=== PATIENT | male | born 1935 | race Caucasian/White ===

== ENCOUNTER → 2016-09-02 | Outpatient (CLI) | payer MEDICARE, MEDICAID ==
[~2016-09-02] MED LIST: Acetaminophen PEG; BISA10SU65 RECTALLY; ENOX80DI SQ; LISI1TAB PEG; Lansoprazole PEG; SIMV40TA73 PEG; SUCR1ORA PEG; TROL85CR TOP; Warfarin Sodium MC
[2016-09-02 07:22] LABS: PROTHROMBIN TIME 49.7 SEC (9.31-12.49)
[2016-09-02 07:31] LABS: INR 4.56 (0.76-1.04)
== END ==
LOC: LABNH.AP 02:12
PROVIDERS: ATTEND Family Medicine
DX: Z79.01 Long term (current) use of anticoagulants (principal); I63.50 Cerebral infarction due to unspecified occlusion or stenosis of unspecified cerebral artery
CPT/HCPCS: 36415; 85610; P9604

== ENCOUNTER → 2016-09-09 | Outpatient (CLI) | payer MEDICARE, MEDICAID ==
[2016-09-09 06:41] LABS: INR 2.92 (0.76-1.04); PROTHROMBIN TIME 31.8 SEC (9.31-12.49)
== END ==
LOC: LABNH.AP 00:25
PROVIDERS: ATTEND Family Medicine
DX: Z79.01 Long term (current) use of anticoagulants (principal); I63.50 Cerebral infarction due to unspecified occlusion or stenosis of unspecified cerebral artery
CPT/HCPCS: 36415; 85610; P9604

== ENCOUNTER → 2016-09-23 | Outpatient (CLI) | payer MEDICARE, MEDICAID ==
[2016-09-23 07:39] LABS: PROTHROMBIN TIME 90.1 SEC (9.31-12.49)
[2016-09-23 07:53] LABS: ANION GAP 13 MEQ/L (5-15); BUN/CREATININE RATIO 39 RATIO (6-26); CALCIUM 9.1 MG/DL (8.4-10.2); CHLORIDE 102 MEQ/L (98-107); CO2 - CARBON DIOXIDE 27 MEQ/L (22-30); CREATININE 0.8 MG/DL (0.8-1.5); GLOMERULAR FILTRATION RATE 93; GLUCOSE 106 MG/DL (75-110); POTASSIUM 4.5 MEQ/L (3.6-5); SODIUM 142 MEQ/L (134-144)
[2016-09-23 08:31] LABS: INR 8.27 (0.76-1.04)
== END ==
LOC: LABNH.AP 00:41
PROVIDERS: ATTEND Family Medicine
DX: I63.50 Cerebral infarction due to unspecified occlusion or stenosis of unspecified cerebral artery (principal); I10 Essential (primary) hypertension; Z79.01 Long term (current) use of anticoagulants
CPT/HCPCS: 36415; 80048; 85610; P9604

== ENCOUNTER → 2016-09-25 | Outpatient (CLI) | payer MEDICARE, MEDICAID ==
[2016-09-25 06:50] LABS: INR 8.99 (0.76-1.04)
== END ==
LOC: LABNH.AP 00:06
PROVIDERS: ATTEND Family Medicine
DX: I10 Essential (primary) hypertension (principal); Z79.01 Long term (current) use of anticoagulants
CPT/HCPCS: 36415; 85610; P9604

== ENCOUNTER → 2016-09-28 | Outpatient (CLI) | payer MEDICARE, MEDICAID ==
[2016-09-28 07:19] LABS: PROTHROMBIN TIME 54.2 SEC (9.31-12.49)
[2016-09-28 07:54] LABS: INR 4.97 (0.76-1.04)
== END ==
LOC: LABNH.AP 02:11
PROVIDERS: ATTEND Family Medicine
DX: I63.50 Cerebral infarction due to unspecified occlusion or stenosis of unspecified cerebral artery (principal); I10 Essential (primary) hypertension; Z79.01 Long term (current) use of anticoagulants
CPT/HCPCS: 36415; 85610; P9604

== ENCOUNTER → 2016-09-30 | Outpatient (CLI) | payer MEDICARE, MEDICAID ==
[2016-09-30 09:31] LABS: INR 2.31 (0.76-1.04); PROTHROMBIN TIME 25.2 SEC (9.31-12.49)
== END ==
LOC: LABNH.AP 02:39
PROVIDERS: ATTEND Family Medicine
DX: I63.50 Cerebral infarction due to unspecified occlusion or stenosis of unspecified cerebral artery (principal); Z79.01 Long term (current) use of anticoagulants
CPT/HCPCS: 36415; 85610; P9604

== ENCOUNTER → 2016-10-02 | Outpatient (CLI) | payer MEDICARE, MEDICAID ==
[2016-10-02 06:29] LABS: INR 1.63 (0.76-1.04); PROTHROMBIN TIME 17.8 SEC (9.31-12.49)
== END ==
LOC: LABNH.AP 00:43
PROVIDERS: ATTEND Family Medicine
DX: I63.50 Cerebral infarction due to unspecified occlusion or stenosis of unspecified cerebral artery (principal); Z79.01 Long term (current) use of anticoagulants
CPT/HCPCS: 36415; 85610; P9604

== ENCOUNTER → 2016-10-09 | Outpatient (CLI) | payer MEDICARE, MEDICAID ==
[2016-10-09 06:17] LABS: INR 2.64 (0.76-1.04); PROTHROMBIN TIME 28.8 SEC (9.31-12.49)
== END ==
LOC: LABNH.AP 00:14
PROVIDERS: ATTEND Family Medicine
DX: I63.50 Cerebral infarction due to unspecified occlusion or stenosis of unspecified cerebral artery (principal); Z79.01 Long term (current) use of anticoagulants
CPT/HCPCS: 36415; 85610; P9604

== ENCOUNTER → 2016-10-14 | Outpatient (CLI) | payer MEDICARE, MEDICAID ==
[2016-10-14 07:48] LABS: INR 3.83 (0.76-1.04); PROTHROMBIN TIME 41.7 SEC (9.31-12.49)
== END ==
LOC: LABNH.AP 00:54
PROVIDERS: ATTEND Family Medicine
DX: I63.50 Cerebral infarction due to unspecified occlusion or stenosis of unspecified cerebral artery (principal); Z79.01 Long term (current) use of anticoagulants
CPT/HCPCS: 36415; 85610; P9604

== ENCOUNTER → 2016-10-28 | Outpatient (CLI) | payer MEDICARE, MEDICAID ==
[2016-10-28 12:55] LABS: INR 1.29 (0.76-1.04); PROTHROMBIN TIME 14.1 SEC (9.31-12.49)
== END ==
LOC: LABNH.AP 00:37
PROVIDERS: ATTEND Family Medicine
DX: I63.50 Cerebral infarction due to unspecified occlusion or stenosis of unspecified cerebral artery (principal); Z79.01 Long term (current) use of anticoagulants
CPT/HCPCS: 36415; 85610; P9604

== ENCOUNTER → 2016-11-11 | Outpatient (CLI) | payer MEDICARE, MEDICAID ==
[2016-11-11 08:03] LABS: INR 1.2 (0.77-1.03); PROTHROMBIN TIME 13.2 SEC (9.48-12.52)
== END ==
LOC: LABNH.AP 00:45
PROVIDERS: ATTEND Family Medicine
DX: I63.50 Cerebral infarction due to unspecified occlusion or stenosis of unspecified cerebral artery (principal); Z79.01 Long term (current) use of anticoagulants
CPT/HCPCS: 36415; 85610

== ENCOUNTER 2017-08-19 14:50 | Inpatient (IN) ==
[2017-08-19] MEDS ORDERED: NS 1,000 ML IV ONE ×2 (16:02→17:27)
[2017-08-19] MEDS ORDERED: CEFTRIAXONE (ER USE ONLY) 1 GM in NS 100 ML IV ONE (17:25)
--- NOTE | 2017-08-19 17:58 | Emergency Department Report ---
Fever HPI - General Chief Complaint: Fever Stated Complaint: fever Source: other ([facility] report ) Mode of arrival: EMS Limitations: altered mental status (pt is nonverbal) - History of Present Illness HPI Narrative: Pt [facility] form [facility] with fever for 2 days, low BP, and tachycardia. 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 MD complaint: fever - Related Data Home Medications Medication Instructions Recorded Confirmed Escitalopram [Lexapro] 10 mg PEG DAILY 06/13/17 08/19/17 Metoprolol Tartrate [Lopressor] 12.5 mg GT BID 06/13/17 08/19/17 Ranitidine [Zantac] 150 mg PEG HS 06/13/17 08/19/17 Warfarin Sodium 2 mg PEG PM 06/13/17 08/19/17 Acetaminophen 15 ml GT Q4H PRN 08/19/17 08/19/17 Albuterol Neb (0.083%) [Proventil 1 vial INH Q4H PRN 08/19/17 08/19/17 Neb (0.083%)] Carboxymethylcellulose Sodium 1 drop EACH EYE Q6H PRN 08/19/17 08/19/17 [Refresh Tears] Divalproex [Depakote] 125 mg GT BID 08/19/17 08/19/17 FentaNYL PATCH [Duragesic Patch] 1 patch TD Q72H 08/19/17 08/19/17 Gabapentin [Neurontin] 200 mg GT BID 08/19/17 08/19/17 Mupirocin Ointment [Bactroban 1 applicatio TOP BID 08/19/17 08/19/17 Ointmment] Nutrit Supp/Inulin/Fos/Fiber 1,500 ml PO HS 08/19/17 08/19/17 [Fibersource Hn Liquid] Ondansetron HCl 8 mg PO Q8H PRN 08/19/17 08/19/17 Oxycodone/Acetaminophen 5/325 1 tab PO Q6H PRN 08/19/17 08/19/17 [Percocet 5/325] Sennosides [Senokot] 8.6 mg GT DAILY 08/19/17 08/19/17 Simvastatin [Zocor] 10 mg GT HS 08/19/17 08/19/17 Tamsulosin [Flomax] 0.4 mg GT HS 08/19/17 08/19/17 Allergies Allergy/AdvReac Type Severity Reaction Status Date / Time No Known Allergies Allergy Verified 08/19/17 15:15 Review of Systems Limitations: ROS unobtainable due to patient's medical condition PFSH Patient Stated Medical History Cerebrovascular Accident Yes Hypertension Yes Other Respiratory Yes: HX OF WHEEZING Gastroesophageal Reflux Yes Disease Hx Benign Prostatic Yes Hyperplasia Hx Incontinence Yes Other Musculoskeletal Yes: CONTRACTURES Other Behavioral Health Yes: [employer] [facility] CVA Surgical History: Gastrostomy tube - Social History Smoking status: Never smoker Substance use type: does not use Alcohol intake frequency: does not drink Physical Exam - Limitations Limitations: altered mental status - Normal Exams: Head:: Normocephalic without trauma Eyes:: Pupils are PERRLA w/ EOMI Chest/Respirations:: Clear all valenzuela, with good airflow, and symmetry bilaterally Cardiovascular:: Regular rate and rhythm (tachycardic), without murmur or gallop , Pulses 2+ all extremities, capillary refill, <2 seconds all extremities Abdomen:: Bowel sounds positive, soft, non-tender, non-distended Musculoskeletal:: No tenderness, or deformity noted (contractures) Integumentary:: No rashes Course Vital Signs Pulse Rate 90 08/19/17 15:19 Respiratory Rate 18 08/19/17 15:19 Blood Pressure 108/55 08/19/17 15:19 Pulse Oximetry 95 08/19/17 15:19 Temperature 98.8 F 08/19/17 15:25 Pulse Rate 99 08/19/17 16:12 Respiratory Rate 24 08/19/17 16:12 Blood Pressure 126/71 08/19/17 16:12 Pulse Oximetry 93 08/19/17 16:12 Fever - MDM Narrative Medical decision making narrative: Labs reviewed. IVF initiated. Cultures, UA and X ray obtained. X ray reveals a pneumonia. Dr Major notified of need for admit. Rocephin given. PT to be admitted with sepsis - Differential Diagnosis Likely: fever of unknown origin, gastroenteritis, community acquired pneumonia, viral infection, sepsis, influenza - Lab Data Attestation: I reviewed the patient's lab results. Result diagrams: 08/19/17 15:12 08/19/17 15:12 Lab Results 03/01/18 03/01/18 03/01/18 Range/Units 15:12 15:12 16:20 WBC 22.3 H (4.5-11.0) T/MM3 RBC 4.05 L (4.50-5.90) M/MM3 Hgb 12.8 L (13.5-17.5) GM/DL Hct 39.8 L (41-53) % MCV 98.3 (80-100) UM3 MCH 31.6 (26-34) UUG MCHC 32.2 (31-37) GM/DL RDW Std Deviation 50.9 H (36.9-50.2) FL Plt Count 179 (130-400) T/MM3 MPV 11.5 (9.4-12.4) UM3 Immature Gran % (Auto) Not performed Neut % (Auto) Not performed Lymph % (Auto) Not performed Real % (Auto) Not performed Eos % (Auto) Not performed Baso % (Auto) Not performed Neut # (Auto) Not performed Lymph # (Auto) Not performed Real # (Auto) Not performed Eos # (Auto) Not performed Baso # (Auto) Not performed Abs Immat Gran (auto) Not performed Neutrophils % (Manual) 77.0 H (33-66) % Band Neutrophils % 5.0 (0-6) % Lymphocytes % (Manual) 12.0 L (23-45) % Monocytes % (Manual) 5.0 (0-9.0) % Metamyelocytes % 1.0 H (0-0) % Neutrophils # (Manual) 17.2 H (1.8-7.7) T/MM3 Band Neutrophils # 1.1 T/MM3 Lymphocytes # (Manual) 2.7 (1-4.8) T/MM3 Monocytes # (Manual) 1.1 H (0-0.8) T/MM3 Metamyelocytes # 0.2 T/MM3 RBC Morph Comment Normal Turbidity < 20 (0-20) Sodium 137 (134-144) MEQ/L Potassium 4.5 (3.6-5) MEQ/L Chloride 99 (98-107) MEQ/L Carbon Dioxide 27 (22-30) MEQ/L Anion Gap 11 (5-15) MEQ/L BUN 32.0 H (9-20) MG/DL Creatinine 1.1 (0.8-1.5) MG/DL GFR Calculation 64 BUN/Creatinine Ratio 29 H (6-26) RATIO Glucose 150 H (75-110) MG/DL Calculated Osmolality 274 (261-280) MOSM/KG Calcium 8.9 (8.4-10.2) MG/DL Total Bilirubin 1.20 (0.20-1.30) MG/DL Icterus Index < 2 (0-7) AST 19 (17-59) U/L ALT 33 (21-72) U/L Alkaline Phosphatase 119 (38-126) U/L Total Protein 7.5 (6.3-8.2) G/DL Albumin 3.6 (3.5-5.0) G/DL Globulin 3.9 H (2.4-3.6) G/DL Albumin/Globulin Ratio 0.9 L (1.1-2.2) RATIO Plasma Lactate 2.1 (0.6-2.2) MMOL/L Procalcitonin NG/ML Specimen Hemolysis < 15 (0-25) 08/19/17 Range/Units 16:20 WBC (4.5-11.0) T/MM3 RBC (4.50-5.90) M/MM3 Hgb (13.5-17.5) GM/DL Hct (41-53) % MCV (80-100) UM3 MCH (26-34) UUG MCHC (31-37) GM/DL RDW Std Deviation (36.9-50.2) FL Plt Count (130-400) T/MM3 MPV (9.4-12.4) UM3 Immature Gran % (Auto) Neut % (Auto) Lymph % (Auto) Real % (Auto) Eos % (Auto) Baso % (Auto) Neut # (Auto) Lymph # (Auto) Real # (Auto) Eos # (Auto) Baso # (Auto) Abs Immat Gran (auto) Neutrophils % (Manual) (33-66) % Band Neutrophils % (0-6) % Lymphocytes % (Manual) (23-45) % Monocytes % (Manual) (0-9.0) % Metamyelocytes % (0-0) % Neutrophils # (Manual) (1.8-7.7) T/MM3 Band Neutrophils # T/MM3 Lymphocytes # (Manual) (1-4.8) T/MM3 Monocytes # (Manual) (0-0.8) T/MM3 Metamyelocytes # T/MM3 RBC Morph Comment Turbidity (0-20) Sodium (134-144) MEQ/L Potassium (3.6-5) MEQ/L Chloride (98-107) MEQ/L Carbon Dioxide (22-30) MEQ/L Anion Gap (5-15) MEQ/L BUN (9-20) MG/DL Creatinine (0.8-1.5) MG/DL GFR Calculation BUN/Creatinine Ratio (6-26) RATIO Glucose (75-110) MG/DL Calculated Osmolality (261-280) MOSM/KG Calcium (8.4-10.2) MG/DL Total Bilirubin (0.20-1.30) MG/DL Icterus Index (0-7) AST (17-59) U/L ALT (21-72) U/L Alkaline Phosphatase (38-126) U/L Total Protein (6.3-8.2) G/DL Albumin (3.5-5.0) G/DL Globulin (2.4-3.6) G/DL Albumin/Globulin Ratio (1.1-2.2) RATIO Plasma Lactate (0.6-2.2) MMOL/L Procalcitonin 0.21 NG/ML Specimen Hemolysis (0-25) - Radiology Data Attestation: I reviewed the patient's radiology results. (read per Dr Cabrera consistent with pneumonia) - EKG Data EKG #1 EKG attestation: Yes: I reviewed and interpreted this EKG. EKG shows normal: sinus rhythm Rate: normal Disposition Clinical Impression: Sepsis Qualifiers: Sepsis type: sepsis due to unspecified organism Qualified Code(s): A41.9 - Sepsis, unspecified organism Disposition: 02 To [facility] [place] Acute Care Condition: Improved Prescriptions: No Action Escitalopram [Lexapro] 10 mg PEG DAILY Warfarin Sodium 2 mg PEG PM Simvastatin [Zocor] 10 mg GT HS Ondansetron HCl 8 mg PO Q8H PRN PRN Reason: Nausea Albuterol Neb (0.083%) [Proventil Neb (0.083%)] 1 vial INH Q4H PRN PRN Reason: Wheezing Acetaminophen 15 ml GT Q4H PRN PRN Reason: Pain Oxycodone/Acetaminophen 5/325 [Percocet 5/325] 1 tab PO Q6H PRN PRN Reason: Pain FentaNYL PATCH [Duragesic Patch] 1 patch TD Q72H Nutrit Supp/Inulin/Fos/Fiber [Fibersource Hn Liquid] 1,500 ml PO HS Tamsulosin [Flomax] 0.4 mg GT HS Sennosides [Senokot] 8.6 mg GT DAILY Divalproex [Depakote] 125 mg GT BID Gabapentin [Neurontin] 200 mg GT BID Carboxymethylcellulose Sodium [Refresh Tears] 1 drop EACH EYE Q6H PRN PRN Reason: Dry Eyes Ranitidine [Zantac] 150 mg PEG HS Metoprolol Tartrate [Lopressor] 12.5 mg GT BID Mupirocin Ointment [Bactroban Ointmment] 1 applicatio TOP BID Referrals: Donovan Curtis MD [Primary Care Provider] - Time of Disposition: 18:05 - Seen By: emery
--- NOTE | 2017-08-19 18:24 | History & Physical Report ---
History of Present Illness Date: 08/19/17 Chief complaint: fever and tachycardia HPI: The [facility] is [facility] 82[facility] patient. He has history of a stroke with resultant left-sided weakness, dysphasia, and some expressive aphasia. He is not able to give a good history. History is obtained from information sent from his [facility], old records, and discussion with his [facility] nurse. Reportedly, the patient had fever at the [facility], 102.5 with blood pressure 96/54 and heart rate of 104. He was transferred to the emergency room and an evaluation was initiated. He has a temperature of 98.8, respirations 24, heart rate 99, blood pressure 126/71 and O2 sat of 93% on room air. He was found to have a white count of 22, neutrophils 77, bands 5. Hemoglobin and platelets are normal. BUN is mildly elevated at 32. Electrolytes are essentially normal. Globulin is 3.9. Lactate 2.1. Pro-calcitonin is 0.21 Urinalysis is pending Chest x-ray is pending On my arrival the patient appeared comfortable in the ER. He complained of pain all over. He was resistant to being examined. He denied any chest pain, abdominal pain, shortness of breath or nausea. He frequently said "no, no, no." His nursing facility was called and his nurse stated he had chronic left-sided weakness from a stroke. He has a PEG tube placement and is strict nothing by mouth. He is on tube feedings. His level of communication appears to be at baseline. He is full code per his nurse and per paperwork from the [facility]. I tried to call his but there was no answer. Review of Systems ROS unobtainable: due to mental status Past Medical History History of ischemic stroke with resultant left-sided weakness, dysphagia, expressive aphasia Chronic anticoagulation with Coumadin for uncertain reason Hypertension Hyperlipidemia Vascular dementia Osteoarthritis GERD Depression Surgical History: Gastrostomy tube Family History: Diabetes Family History Updates: Diabetes - Social History Smoking status: Former smoker Social history: [facility] resident. Full code per paperwork. Unable to swallow and receives all meds and nutrition through PEG tube Medications Home Medications Medication Instructions Recorded Confirmed Type Escitalopram [Lexapro] 10 mg PEG DAILY 06/13/17 08/19/17 History Metoprolol Tartrate [Lopressor] 12.5 mg GT BID 06/13/17 08/19/17 History Ranitidine [Zantac] 150 mg PEG HS 06/13/17 08/19/17 History Warfarin Sodium 2 mg PEG PM 06/13/17 08/19/17 History Acetaminophen 15 ml GT Q4H PRN 08/19/17 08/19/17 History Albuterol Neb (0.083%) [Proventil 1 vial INH Q4H PRN 08/19/17 08/19/17 History Neb (0.083%)] Carboxymethylcellulose Sodium 1 drop EACH EYE Q6H PRN 08/19/17 08/19/17 History [Refresh Tears] Divalproex [Depakote] 125 mg GT BID 08/19/17 08/19/17 History FentaNYL PATCH [Duragesic Patch] 1 patch TD Q72H 08/19/17 08/19/17 History Gabapentin [Neurontin] 200 mg GT BID 08/19/17 08/19/17 History Mupirocin Ointment [Bactroban 1 applicatio TOP BID 08/19/17 08/19/17 History Ointmment] Nutrit Supp/Inulin/Fos/Fiber 1,500 ml PO HS 08/19/17 08/19/17 History [Fibersource Hn Liquid] Ondansetron HCl 8 mg PO Q8H PRN 08/19/17 08/19/17 History Oxycodone/Acetaminophen 5/325 1 tab PO Q6H PRN 08/19/17 08/19/17 History [Percocet 5/325] Sennosides [Senokot] 8.6 mg GT DAILY 08/19/17 08/19/17 History Simvastatin [Zocor] 10 mg GT HS 08/19/17 08/19/17 History Tamsulosin [Flomax] 0.4 mg GT HS 08/19/17 08/19/17 History Allergies Allergy/AdvReac Type Severity Reaction Status Date / Time No Known Allergies Allergy Verified 08/19/17 15:15 Exam Vital Signs: Temperature 98.8 F 08/19/17 15:25 Pulse Rate 99 08/19/17 16:12 Respiratory Rate 24 08/19/17 16:12 Blood Pressure 126/71 08/19/17 16:12 Pulse Oximetry 93 08/19/17 16:12 Comments: GEN-alert, some expressive aphasia, no acute distress unless he is being examined HEENT-sclera anicteric, pupils equal, left eye has some mild purulent drainage, oropharynx is moist NECK-supple CV-regular rate and rhythm CHEST-to auscultation bilaterally ABD-soft, nontender, nondistended with positive bowel sounds. PEG tube is in the left upper quadrant -no Taylor EXT-edema NEURO-significant for severe left-sided weakness, expressive aphasia, probable dementia by history SKIN-warm and dry. Skin is very dry and flaky Results - Labs CBC & Chem 7: 08/19/17 15:12 08/19/17 15:12 Labs: Lactate 2.1, globulin 3.9, pro-calcitonin normal. Urinalysis straight catheter shows 2+ protein, 3+ occult blood, positive nitrate , 2+ leukocyte esterase, 50-200 white cells, 3+ bacteria. Urine Culture is pending Blood cultures are pending Viral respiratory panel is pending - Impressions Chest x-ray on my read shows poor inspiration, cardiomegaly-official report is pending Assessment and Plan Assessment and Plan: Impression Severe sepsis UTI Vascular dementia History of ischemic stroke with left-sided weakness, dysphagia, expressive aphasia Strict nothing by mouth Chronic anticoagulation with Coumadin-INR is therapeutic PEG tube Hypertension Hyperlipidemia Plan Rocephin was initiated in the emergency room and will be continued once daily for UTI/sepsis. Patient was given 2 L of IV fluids Repeat lactate Change to inpatient status secondary to severe sepsis. Will likely need more than 2 midnights on antibiotics with close monitoring prior to dismissal Pharmacy consult for Coumadin monitoring CBC and basic metabolic profile tomorrow Daily a.m. INR Await viral respiratory panel Full code Strict nothing by mouth-PEG tube for all meds, nutrition, and fluids DVT Prophylaxis: Coumadin Resuscitation Status: Full Code - Physician Narrative Physician: Munira Justice MD Narrative: Date: 08/19/17 Time: 1818 Sepsis Assessment - Evaluation SIRS Criteria: temperature > 100.9 (102.5 at the [facility]), pulse > 90 beats /minute (99 in the emergency room) Severe Sepsis: lactate > 2.0 mg/dL - Focused Exam-within 6 hours of IVF Bolus Date exam was performed: 08/19/17 Time exam was performed: 18:36 Afebrile, pulse 99, respirations 24, blood pressure 126/71, O2 sat 93% Respiratory exam: Present: CTA bilaterally Cardiovascular exam: Present: RRR Capillary Refill: < 2Seconds Peripheral pulse strength: Normal Peripheral pulse location: Radial Skin Temperature: Warm Skin Color: [place] Hospital Course Summary Disclaimer: The visit summary below is not to be considered part of the above Progress Note.
[2017-08-19] MEDS ORDERED: METOCLOPRAMIDE 10mg/2ml INJECTION IVP PRN (18:38)
[2017-08-19] MEDS ORDERED: ONDANSETRON 4 MG/2 ML INJECTION IVP PRN (18:38)
[2017-08-19] MEDS ORDERED: WARFARIN - PHARMACY CONSULT MC ONE (18:42)
[2017-08-19] MEDS ORDERED: REFRESH CELLUVISC 1% Eye Drops 0.4ml EACH EYE PRN (18:44)
[2017-08-19] MEDS ORDERED: ACETAMINOPHEN 650 MG/20.3 ML SOLUTION PO PRN (18:44)
[2017-08-19] MEDS ORDERED: Oxycodone/Acetaminophen 5/325 1 TAB PO PRN (18:44)
[2017-08-19] MEDS ORDERED: ALBUTEROL 2.5mg/3ml (0.083%) NEB AEROSOL PRN (18:44)
[2017-08-19] MEDS ORDERED: FALL RISK - PHARMACY CONSULT MC ONE (19:59)
[2017-08-19 20:00] VITALS: BMI 29.5
[2017-08-19] MEDS: SALINE FLUSH 10ml SYRINGE IVF PRN (20:12)
[2017-08-19] MEDS: NS 1,000 ML IV SCH (20:12)
[2017-08-19] MEDS ORDERED: [UNRECOGNIZED DRUG - OTHER] PO SCH (21:00)
[2017-08-19] MEDS: GABAPENTIN 100 MG CAPSULE GT SCH (23:16)
[2017-08-19] MEDS: TAMSULOSIN 0.4 MG CAPSULE PO SCH (23:16)
[2017-08-19] MEDS: RANITIDINE 150 MG TABLET PEG SCH (23:16)
[2017-08-19] MEDS: SIMVASTATIN 10 MG TABLET GT SCH (23:16)
[2017-08-19] MEDS: WARFARIN 2 MG TABLET PEG SCH (23:17)
[2017-08-19] MEDS: DIVALPROEX 125 MG TABLET PO SCH (23:17)
--- NOTE | 2017-08-20 07:13 | Pharmacy Consult ---
Pharmacy Consult-Warfarin - Laboratory Information 08/20/17 06:08 INR 2.27 H - Consult Information Will continue daily order of warfarin via PEG tube daily. Thank you.
--- NOTE | 2017-08-20 08:16 | XRay Report ---
Indication: fever PROCEDURE: XR chest 1V: Encounter: Initial Comparison: July 16, 2017 Findings: Chest is grossly stable in appearance with mild interstitial prominence. No pleural effusion or pneumothorax. Heart size and mediastinal contours are unchanged. Pulmonary vascularity is somewhat indistinct. Impression: Interstitial prominence could represent mild CHF or atypical/viral pneumonia. There is a preliminary report by [facility]. .
[2017-08-20] MEDS: SENNOSIDES 8.6 MG TABLET PO SCH (10:00)
[2017-08-20] MEDS: ESCITALOPRAM 10 MG TABLET PEG SCH (10:01)
[2017-08-20] MEDS: DIVALPROEX 125 MG TABLET PO SCH (10:01)
[2017-08-20] MEDS: GABAPENTIN 100 MG CAPSULE GT SCH (10:01)
[2017-08-20] MEDS ORDERED: DIVALPROEX SPRINKLE 125 MG CAPSULE PO SCH (10:15)
[2017-08-20] MEDS ORDERED: ACETAMINOPHEN 650 MG/20.3 ML SOLUTION PEG PRN (10:15)
--- NOTE | 2017-08-20 15:33 | Progress Note ---
- Date 08/20/17 Subjective: Mr. Esteban was resting in bed. He was in no acute distress but stated he was in pain. He told me that he was "not good". He couldn't describe where his pain was (hx aphasia) but indicated pain in every location I inquired about. When I pulled back his covers to inspect his abdomen and legs, he told me to cover him back up - he was cold. He had an axillary temp of 100 this am. Objective Vital signs: Temperature 100 F 08/20/17 08:00 Pulse Rate 92 08/20/17 08:00 Respiratory Rate 18 08/20/17 08:00 Blood Pressure 132/68 08/20/17 08:00 Pulse Oximetry 92 08/20/17 08:00 Rhythm: Normal Sinus Rhythm Height/Weight/BMI: Height 1.73 m Weight 89.3 kg Body Mass Index 29.5 - Constitutional Present: no acute distress, well nourished, well developed - Routine HEENT Exam Head: Present: normocephalic Eye: Present: PERRL. Absent: conjunctival icterus, scleral injection ENT: Present: mucous membranes dry - Routine Respiratory Exam Present: decreased breath sounds (anterior breath sounds, more diminished on right compared to left ) - Routine Cardiovascular Exam Present: RRR, S1, S2 - Routine Abdominal Exam Present: soft, normoactive bowel sounds, non distended, non tender Comments: PEG tube with mild surrounding erythema and scabbing. No purulent drainage. - Routine Extremities Exam Present: no edema, pulses intact, normal capillary refill. Absent: extremity cold to touch - Routine Musculoskeletal Exam Musculoskeletal: Present: contractures (left hand) - Routine Skin Exam Present: dry, warm Comments: great toenails b/l with fungal distortion - Routine Neurological Exam Present: alert, motor deficit (left hemiparesis) - Routine Psychiatric Exam Present: normal affect, cooperative Results - Labs CBC & Chem 7: 08/20/17 06:08 08/20/17 06:08 Assessment and Plan (1) UTI (urinary tract infection) Current visit: Yes Status: Acute Assessment and Plan: Impression Severe sepsis based on elevated lactate and hypotension UTI Vascular dementia History of ischemic stroke with left-sided weakness, dysphagia, expressive aphasia Strict nothing by mouth Chronic anticoagulation with Coumadin-INR is therapeutic PEG tube Hypertension Hyperlipidemia Plan Continue Rocephin for UTI, day #2; urine culture and blood cultures pending. Leukocytosis improving, down to 14.2. Viral resp panel was negative. Hypotension has resolved. He is incontinent of urine but weight is up nearly 5 kg. Decreased breath sounds noted -- will DC IVF. Continue TF. INR therapeutic; Coumadin managed per pharmacy Repeat CBC, procalcitonin, and BMP in am. 08/20/2017-6:25 PM-I reviewed this chart, the patient history, and the DINING SERVER's/PA 's documented findings as above. We discussed and formulated the assessment and plan as above with the additions below.-Dr. Justice The patient was seen this evening in his room. His was here earlier but had to leave because her sister was ill. My nurse practitioner Luz was able to talk with the patient's today. The patient is pleasant this evening and denies pain. He denies shortness of breath. His nurse states that he was irritable earlier today and was pinching and hitting people. Currently he is quite pleasant and appears comfortable. On exam he is alert and in no acute distress. Oropharynx is moist. Chest is clear to auscultation. Cardiovascular reveals a regular rate and rhythm. Abdomen is soft and nontender. He has some mild edema in the left upper and lower extremity which are paralyzed from previous stroke. He has no edema in the right lower extremity. He moves the right upper and lower extremity without difficulty. He does have dementia and expressive aphasia. Urine culture shows no growth to date. Blood cultures are negative to date. Impression and plan Severe sepsis-resolved Probable UTI, culture however is negative so far. I do believe he was started on Rocephin before urine ample was obtained. Continue Rocephin for now. White count is improving. Agree with discontinuation of IV fluids to prevent fluid overload. Continue all meds per PEG tube and continue tube feedings per PEG tube. Repeat lab in the morning. DVT Prophylaxis: Coumadin GI Prophylaxis: Rantidine Resuscitation Status: Full Code - Physician Narrative Physician: Munira Justice MD Narrative: Date: 08/20/17 Time: 1530 Hospital Course Summary Disclaimer: The visit summary below is not to be considered part of the above Progress Note. Hospital Course: 08/19: admission Rocephin was initiated in the emergency room and will be continued once daily for UTI/sepsis. Patient was given 2 L of IV fluids. Repeat lactate Change to inpatient status secondary to severe sepsis. Pharmacy consult for Coumadin monitoring Await viral respiratory panel Full code. Strict nothing by mouth-PEG tube for all meds, nutrition, and fluids 3/2 Continue Rocephin for UTI, day #2; urine culture and blood cultures pending. Leukocytosis improving, down to 14.2. Viral resp panel was negative. Hypotension has resolved. He is incontinent of urine but weight is up nearly 5 kg. Decreased breath sounds noted -- will DC IVF.
[2017-08-20] MEDS: CEFTRIAXONE 1 G in NS 50 ML IV SCH (18:34)
[2017-08-20] MEDS: TAMSULOSIN 0.4 MG CAPSULE PO SCH (20:46)
[2017-08-20] MEDS: RANITIDINE 150 MG TABLET PEG SCH (20:46)
[2017-08-20] MEDS: WARFARIN 2 MG TABLET PEG SCH (20:47)
[2017-08-20] MEDS: GABAPENTIN 100 MG CAPSULE PEG SCH (20:47)
[2017-08-20] MEDS: SIMVASTATIN 10 MG TABLET GT SCH (20:48)
[2017-08-20] MEDS: DIVALPROEX SPRINKLE 125 MG CAPSULE PEG SCH (22:35)
--- NOTE | 2017-08-21 08:08 | Pharmacy Consult ---
Pharmacy Consult-Warfarin - Laboratory Information 08/20/17 08/21/17 06:08 04:23 INR 2.27 H 1.64 H - Consult Information INR reported as 1.64 and is surprising with patient previously stable on warfarin 2mg p.o. daily. We will give 3mg p.o. today at noon. Suggest a 1 time dose of enoxaparin depending on the risk of emboli. Thanks
[2017-08-21] MEDS: DIVALPROEX SPRINKLE 125 MG CAPSULE PEG SCH ×2 (10:14→20:10)
[2017-08-21] MEDS: ESCITALOPRAM 10 MG TABLET PEG SCH (10:14)
[2017-08-21] MEDS: GABAPENTIN 100 MG CAPSULE PEG SCH ×2 (10:15→20:09)
[2017-08-21] MEDS: SENNOSIDES 8.6 MG TABLET PO SCH (10:25)
[2017-08-21] MEDS ORDERED: WARFARIN 3 MG TABLET PEG SCH (12:00)
--- NOTE | 2017-08-21 12:06 | Progress Note ---
- Date 08/21/17 Subjective: F/U: Severe sepsis, UTI Resting in bed, awake. Converses fair. Feels fair. Not reporting SOA, notes minor congestion. Not having pain with breathing. No nausea or ab pain. Temp 100.0 this am. Objective Vital signs: Temperature 100.0 F 08/21/17 07:50 Pulse Rate 89 08/21/17 07:50 Respiratory Rate 18 08/21/17 07:50 Blood Pressure 146/79 H 08/21/17 07:50 Pulse Oximetry 92 08/21/17 07:50 Rhythm: Normal Sinus Rhythm Height/Weight/BMI: Height 1.73 m Weight 89.6 kg Body Mass Index 29.5 - Constitutional Present: well nourished, well developed, obese, cooperative - Routine HEENT Exam Head: Present: normocephalic, atraumatic ENT: Present: mucous membranes moist - Routine Respiratory Exam Present: decreased breath sounds, rhonchi. Absent: respiratory distress - Routine Cardiovascular Exam Present: RRR, no murmur - Routine Abdominal Exam Present: soft, normoactive bowel sounds, non distended, non tender - Routine Extremities Exam Present: no edema, pulses intact. Absent: cyanosis, clubbing - Routine Musculoskeletal Exam Musculoskeletal: Present: no clubbing or cyanosis - Routine Skin Exam Present: dry, warm - Routine Neurological Exam Present: alert, CN II-XII intact, vision grossly intact, hearing grossly intact - Routine Psychiatric Exam Present: normal affect. Absent: agitated Results - Labs CBC & Chem 7: 08/21/17 04:23 08/21/17 04:23 Assessment and Plan (1) UTI (urinary tract infection) Current visit: Yes Status: Acute Assessment and Plan: Impression Severe sepsis based on elevated lactate and hypotension UTI Vascular dementia History of ischemic stroke with left-sided weakness, dysphagia, expressive aphasia Strict nothing by mouth Chronic anticoagulation with Coumadin-INR is therapeutic PEG tube Hypertension Hyperlipidemia Plan Continue Rocephin for UTI, day #3; urine culture showing GNR. Leukocytosis improving, normalized at 10.2. Temp with elevation at 100.0 this am. Tolerating TF - continue. Repeat CBC and BMP in am. DVT Prophylaxis: Coumadin Resuscitation Status: Full Code - Time spent with patient Time with patient PN: 25 minutes - Physician Narrative Physician: Seymour Scott MD Narrative: Date: 08/21/17 Time: 1156 Hospital Course Summary Disclaimer: The visit summary below is not to be considered part of the above Progress Note. Hospital Course: 08/19: Admission Rocephin was initiated in the emergency room and will be continued once daily for UTI/sepsis. Patient was given 2 L of IV fluids. Repeat lactate Change to inpatient status secondary to severe sepsis. Pharmacy consult for Coumadin monitoring. Await viral respiratory panel. Full code. Strict nothing by mouth-PEG tube for all meds, nutrition, and fluids. / Continue Rocephin for UTI, day #2; urine culture and blood cultures pending. Leukocytosis improving, down to 14.2. Viral resp panel was negative. Hypotension has resolved. He is incontinent of urine but weight is up nearly 5 kg. Decreased breath sounds noted -- will DC IVF. /3 Continue Rocephin for UTI, day #3; urine culture showing GNR. Leukocytosis improving, normalized at 10.2. Temp with elevation at 100.0 this am. Tolerating TF - continue.
[2017-08-21] MEDS: NS 1,000 ML IV SCH (12:38)
[2017-08-21] MEDS: CEFTRIAXONE 1 G in NS 50 ML IV SCH (17:40)
[2017-08-21] MEDS ORDERED: NS FLUSH BAG 500ml IV PRN (17:40)
[2017-08-21] MEDS: SALINE FLUSH 10ml SYRINGE IVF PRN (17:41)
[2017-08-21] MEDS: RANITIDINE 150 MG TABLET PEG SCH (20:10)
[2017-08-21] MEDS: SIMVASTATIN 10 MG TABLET GT SCH (20:19)
[2017-08-21] MEDS: DOXAZOSIN 1 MG TABLET GT SCH (22:34)
--- NOTE | 2017-08-22 06:51 | Pharmacy Consult ---
Pharmacy Consult-Warfarin - Laboratory Information 08/20/17 08/21/17 08/22/17 06:08 04:23 04:55 INR 2.27 H 1.64 H 1.70 H - Consult Information Anticipate INR to be therapeutic by tomorrow after giving 4mg of warfarin today at noon. Maybe 1 dose of enoxaparin today could be given to bridge INR. Thanks
[2017-08-22] MEDS: SENNOSIDES 8.6 MG TABLET PO SCH (08:07)
[2017-08-22] MEDS: DIVALPROEX SPRINKLE 125 MG CAPSULE PEG SCH ×2 (08:07→20:26)
[2017-08-22] MEDS: ESCITALOPRAM 10 MG TABLET PEG SCH (08:07)
[2017-08-22] MEDS: GABAPENTIN 100 MG CAPSULE PEG SCH ×2 (08:07→20:26)
[2017-08-22] MEDS ORDERED: ENOXAPARIN 40 MG/0.4 ML INJECTION SQ ONE (11:30)
[2017-08-22] MEDS ORDERED: WARFARIN 4 MG TABLET PO SCH (12:00)
--- NOTE | 2017-08-22 16:05 | Progress Note ---
- Date 08/22/17 Subjective: F/U: Severe sepsis, UTI Resting today - I stopped by twice before to see him and he was napping both times. Awake at this visit, but feels tired. Denies ab pain or discomfort. Breathing feels normal-not congested or SOA. WBC decreased to 6.4. Temp 100.2 at midnight. Objective Vital signs: Temperature 98.4 F 08/22/17 14:12 Pulse Rate 64 08/22/17 14:12 Respiratory Rate 20 08/22/17 14:12 Blood Pressure 135/71 08/22/17 14:12 Pulse Oximetry 92 08/22/17 14:12 Rhythm: Normal Sinus Rhythm Height/Weight/BMI: Height 1.73 m Weight 88 kg Body Mass Index 29.5 - Constitutional Present: well nourished, well developed, average body habitus - Routine HEENT Exam Head: Present: normocephalic, atraumatic Eye: Present: EOMI, PERRL ENT: Present: mucous membranes moist - Routine Respiratory Exam Present: decreased breath sounds. Absent: rales, respiratory distress, rhonchi , stridor, wheezes, crackles - Routine Cardiovascular Exam Present: RRR, no murmur - Routine Abdominal Exam Present: soft, normoactive bowel sounds, non distended, non tender - Routine Extremities Exam Present: no edema. Absent: cyanosis, clubbing - Routine Skin Exam Present: dry, warm - Routine Neurological Exam Present: alert, vision grossly intact, hearing grossly intact. Absent: altered mental status - Routine Psychiatric Exam Present: cooperative Results - Labs CBC & Chem 7: 08/22/17 04:55 08/22/17 04:55 Assessment and Plan (1) UTI (urinary tract infection) Current visit: Yes Status: Acute Assessment and Plan: Impression Severe sepsis based on elevated lactate and hypotension UTI with Klebsiella pneumoniae Vascular dementia History of ischemic stroke with left-sided weakness, dysphagia, expressive aphasia Strict nothing by mouth Chronic anticoagulation with Coumadin-INR is therapeutic PEG tube Hypertension Hyperlipidemia Plan Continue Rocephin for UTI, day #4; urine culture showing Klebsiella pneumoniae sensitive to Rocephin. Leukocytosis improving, decreased to 6.4 today. Temp with elevation at 100.2 at midnight. Blood pressure and heart rate normal. Tolerating TF - continue. Repeat CBC and BMP in am. Anticipate discharge in near future if continues to do well. Resuscitation Status: Full Code - Time spent with patient Time with patient PN: 25 minutes - Physician Narrative Physician: Seymour Scott MD Narrative: Date: 08/22/17 Time: 1602 Hospital Course Summary Disclaimer: The visit summary below is not to be considered part of the above Progress Note. Hospital Course: 08/19: Admission Rocephin was initiated in the emergency room and will be continued once daily for UTI/sepsis. Patient was given 2 L of IV fluids. Repeat lactate Change to inpatient status secondary to severe sepsis. Pharmacy consult for Coumadin monitoring. Await viral respiratory panel. Full code. Strict nothing by mouth-PEG tube for all meds, nutrition, and fluids. 3/2 Continue Rocephin for UTI, day #2; urine culture and blood cultures pending. Leukocytosis improving, down to 14.2. Viral resp panel was negative. Hypotension has resolved. He is incontinent of urine but weight is up nearly 5 kg. Decreased breath sounds noted -- will DC IVF. 3/3 Continue Rocephin for UTI, day #3; urine culture showing GNR. Leukocytosis improving, normalized at 10.2. Temp with elevation at 100.0 this am. Tolerating TF - continue. 3/4 Continue Rocephin for UTI, day #4; urine culture showing Klebsiella pneumoniae sensitive to Rocephin. Leukocytosis improving, decreased to 6.4 today. Temp with elevation at 100.2 at midnight. Blood pressure and heart rate normal. Tolerating TF - continue.
[2017-08-22] MEDS: CEFTRIAXONE 1 G in NS 50 ML IV SCH (16:10)
[2017-08-22] MEDS: SALINE FLUSH 10ml SYRINGE IVF PRN ×2 (16:10→20:27)
[2017-08-22] MEDS: DOXAZOSIN 1 MG TABLET GT SCH (20:26)
[2017-08-22] MEDS: SIMVASTATIN 10 MG TABLET GT SCH (20:26)
[2017-08-22] MEDS: RANITIDINE 150 MG TABLET PEG SCH (20:27)
[2017-08-23 00:35] VITALS: O2SAT 93
[2017-08-23] MEDS ORDERED: CEFTRIAXONE 1 G in NS 50 ML IV ONE (10:11)
--- NOTE | 2017-08-23 10:15 | Progress Note ---
- Date 08/23/17 Subjective: F/U: Severe sepsis, UTI Resting in bed this morning. Readily awakens to verbal stimuli. Denies pain or discomfort. Breathing well. No temp elevations. WBC normal. HR and BP normal. Objective Vital signs: Temperature 98 F 08/23/17 03:55 Pulse Rate 70 08/23/17 03:55 Respiratory Rate 19 08/23/17 03:55 Blood Pressure 114/58 08/23/17 03:55 Pulse Oximetry 93 08/23/17 03:55 Rhythm: Normal Sinus Rhythm Height/Weight/BMI: Height 1.73 m Weight 87.2 kg Body Mass Index 29.5 - Constitutional Present: no acute distress, well nourished, well developed, average body habitus , cooperative - Routine HEENT Exam Head: Present: normocephalic, atraumatic Eye: Present: EOMI, PERRL ENT: Present: mucous membranes moist - Routine Respiratory Exam Present: decreased breath sounds. Absent: rales, respiratory distress, rhonchi , stridor, wheezes, crackles - Routine Cardiovascular Exam Present: RRR, no murmur - Routine Abdominal Exam Present: soft, normoactive bowel sounds, non distended, non tender - Routine Extremities Exam Present: no edema. Absent: cyanosis, clubbing - Routine Musculoskeletal Exam Musculoskeletal: Present: no clubbing or cyanosis - Routine Skin Exam Present: dry, warm - Routine Neurological Exam Present: alert, vision grossly intact, hearing grossly intact - Routine Psychiatric Exam Absent: anxious, agitated Results - Labs CBC & Chem 7: 08/23/17 04:44 08/23/17 04:44 Assessment and Plan (1) UTI (urinary tract infection) Current visit: Yes Status: Acute Assessment and Plan: Impression Severe sepsis based on elevated lactate and hypotension UTI with Klebsiella pneumoniae Vascular dementia History of ischemic stroke with left-sided weakness, dysphagia, expressive aphasia Strict nothing by mouth Chronic anticoagulation with Coumadin-INR is therapeutic PEG tube Hypertension Hyperlipidemia Plan Medically stable for discharge to skilled care. Has completed 5 days of Rocephin for UTI - will continue with cephalexin 500mg per GT TID for 5 more days. Continue with tube feeding and chronic medications. F/U with Dr Curtis in 1 week. See orders for details. Case discussed with CM. Time spent with patient care and discharge greater than 30 minutes. Resuscitation Status: Full Code - Physician Narrative Physician: Seymour Scott MD Narrative: Date: 08/23/17 Time: 1012 Hospital Course Summary Disclaimer: The visit summary below is not to be considered part of the above Progress Note. Hospital Course: 08/19: Admission Rocephin was initiated in the emergency room and will be continued once daily for UTI/sepsis. Patient was given 2 L of IV fluids. Repeat lactate Change to inpatient status secondary to severe sepsis. Pharmacy consult for Coumadin monitoring. Await viral respiratory panel. Full code. Strict nothing by mouth-PEG tube for all meds, nutrition, and fluids. 3/2 Continue Rocephin for UTI, day #2; urine culture and blood cultures pending. Leukocytosis improving, down to 14.2. Viral resp panel was negative. Hypotension has resolved. He is incontinent of urine but weight is up nearly 5 kg. Decreased breath sounds noted -- will DC IVF. 3/3 Continue Rocephin for UTI, day #3; urine culture showing GNR. Leukocytosis improving, normalized at 10.2. Temp with elevation at 100.0 this am. Tolerating TF - continue. 3/4 Continue Rocephin for UTI, day #4; urine culture showing Klebsiella pneumoniae sensitive to Rocephin. Leukocytosis improving, decreased to 6.4 today. Temp with elevation at 100.2 at midnight. Blood pressure and heart rate normal. Tolerating TF - continue. 3/5 Discharge Medically stable for discharge to skilled care. Has completed 5 days of Rocephin for UTI - will continue with cephalexin 500mg per GT TID for 5 more days. Continue with tube feeding and chronic medications. F/U with Dr Curtis in 1 week. See orders for details.
--- NOTE | 2017-08-23 10:33 | Extended Care Facility Orders ---
Admission Orders Admit to:: Shelter Allergies/Adverse Reactions: Allergies No Known Allergies Allergy (Verified 08/19/17 15:15) Admitting Diagnosis: Severe sepsis (resolved), uti Admitting Physician: Seymour Scott MD Attending Physician: Seymour Scott MD Code Status: Full Code Anticiapted Length of Stay: 30 days or less Rehab Potential: fair Rehab Prognosis: fair Diet: NPO. All meds through [facility]. Tube feeding of Fibersource HN 125ml x 12 hours start at 1700. Wound/Incision Care: N/A Evaluations/Treatment: PT, OT Shelter Certification: I certify that SNF services are required to be given on an Inpatient basis because of the patients need for penitentiary care on a continuing basis for the condition(s) for which he/she received inpatient hospital services prior to his/her transfer to the SNF. SNF inpatient care is necessary for the following reasons Indication for Shelter: Med Admininistration, Assess Anticoagulation Therapy, Other (Skilled PT/OT to help functional status. long term for monitoring resolving sepsis. ) - Additional Information In Event of Arrest: Start CPR,call 911,send patient to the ER Resident is Aware of Diagnosis: No (Vascular dementia ) Referrals: Donovan Curtis MD [Primary Care Provider] - 1 Week (Hospital follow up for sepsis secondary to UTI. ) Additional Orders: F/U with Dr Curtis in 1 week. INR in 1 week secondary to medication use - results to Dr Curtis. May start cephalexing on 08/24/17 - had dose of Rocephin on 08/23/17. Continue prior tube feeding and any prior free water.
--- NOTE | 2017-08-23 10:36 | Discharge Summary ---
Discharge Information Date of admission: 08/19/17 19:01 Anticipated date of discharge: 08/23/17 Attending Physician: Seymour Scott MD Primary care physician: Donovan Curtis MD - Discharge Diagnosis (1) UTI (urinary tract infection) Status: Acute Discharge diagnosis Severe sepsis based on elevated lactate and hypotension Associated conditions and complications UTI with Klebsiella pneumoniae Vascular dementia History of ischemic stroke with left-sided weakness, dysphagia, expressive aphasia Strict nothing by mouth Chronic anticoagulation with Coumadin-INR is therapeutic PEG tube Hypertension Hyperlipidemia - Laboratory Labs: Admit Lab 08/19/17 15:12 WBC 22.3 H Hgb 12.8 L Hct 39.8 L MCV 98.3 Plt Count 179 Neutrophils % (Manual) 77.0 H Band Neutrophils % 5.0 Lymphocytes % (Manual) 12.0 L Monocytes % (Manual) 5.0 Metamyelocytes % 1.0 H Admit Lab 08/19/17 08/19/17 15:12 16:20 Sodium 137 Potassium 4.5 Chloride 99 Carbon Dioxide 27 Anion Gap 11 BUN 32.0 H Creatinine 1.1 GFR Calculation 64 BUN/Creatinine Ratio 29 H Glucose 150 H Calculated Osmolality 274 Calcium 8.9 Total Bilirubin 1.20 AST 19 ALT 33 Alkaline Phosphatase 119 Total Protein 7.5 Albumin 3.6 Globulin 3.9 H Albumin/Globulin Ratio 0.9 L Plasma Lactate 2.1 Admit INR 08/19/17 15:12 INR 2.11 H Admit UA 08/19/17 17:49 Urine Color Annamaria Urine Clarity Cloudy Urine pH 5.0 Ur Specific Siler 1.020 Urine Protein 2+ A Urine Glucose (UA) Negative Urine Ketones Trace A Urine Occult Blood 3+ A Urine Nitrate Positive A Urine Bilirubin 1+ A Urine Urobilinogen 0.2 Ur Leukocyte Esterase 2+ A Urine RBC 3-5 H Urine WBC 50-200 H Ur Squamous Epith Cells 0-5 Urine Bacteria 3+ H Discharge INR 08/23/17 04:44 INR 2.40 H 08/23/17 04:44 08/23/17 04:44 - Microbiology Urine culture with Klebsiella pneumoniae - Radiology Radiology: Date of Exam: 08/19/17 PROCEDURE: XR chest 1V Findings: Chest is grossly stable in appearance with mild interstitial prominence. No pleural effusion or pneumothorax. Heart size and mediastinal contours are unchanged. Pulmonary vascularity is somewhat indistinct. Impression: Interstitial prominence could represent mild CHF or atypical/viral pneumonia. History of Present Illness HPI: The patient is an 82-year-old [facility] patient. He has history of a stroke with resultant left-sided weakness, dysphasia, and some expressive aphasia. He is not able to give a good history. History is obtained from information sent from his [facility], old records, and discussion with his [facility] nurse. Reportedly, the patient had fever at the [facility], 102.5 with blood pressure 96/54 and heart rate of 104. He was transferred to the emergency room and an evaluation was initiated. He has a temperature of 98.8, respirations 24, heart rate 99, blood pressure 126/71 and O2 sat of 93% on room air. He was found to have a white count of 22, neutrophils 77, bands 5. Hemoglobin and platelets are normal. BUN is mildly elevated at 32. Electrolytes are essentially normal. Globulin is 3.9. Lactate 2.1. Pro-calcitonin is 0.21 Urinalysis is pending Chest x-ray is pending On my arrival the patient appeared comfortable in the ER. He complained of pain all over. He was resistant to being examined. He denied any chest pain, abdominal pain, shortness of breath or nausea. He frequently said "no, no, no." His nursing facility was called and his nurse stated he had chronic left-sided weakness from a stroke. He has a PEG tube placement and is strict nothing by mouth. He is on tube feedings. His level of communication appears to be at baseline. He is full code per his nurse and per paperwork from the [facility]. I tried to call his but there was no answer. For complete details of the H&P refer to that document. Objective Vital signs: Temperature 98 F 08/23/17 03:55 Pulse Rate 70 08/23/17 03:55 Respiratory Rate 19 08/23/17 03:55 Blood Pressure 114/58 08/23/17 03:55 Pulse Oximetry 93 08/23/17 03:55 Rhythm: Normal Sinus Rhythm Height/Weight/BMI: Height 1.73 m Weight 87.2 kg Body Mass Index 29.5 Hospital Course This is a general summary of the patient's hospital course. For more details refer to the complete medical record. Hospital course: 08/19: Admission Rocephin was initiated in the emergency room and will be continued once daily for UTI/sepsis. Patient was given 2 L of IV fluids. Repeat lactate Change to inpatient status secondary to severe sepsis. Pharmacy consult for Coumadin monitoring. Await viral respiratory panel. Full code. Strict nothing by mouth-PEG tube for all meds, nutrition, and fluids. 3/2 Continue Rocephin for UTI, day #2; urine culture and blood cultures pending. Leukocytosis improving, down to 14.2. Viral resp panel was negative. Hypotension has resolved. He is incontinent of urine but weight is up nearly 5 kg. Decreased breath sounds noted -- will DC IVF. 3/3 Continue Rocephin for UTI, day #3; urine culture showing GNR. Leukocytosis improving, normalized at 10.2. Temp with elevation at 100.0 this am. Tolerating TF - continue. 3/4 Continue Rocephin for UTI, day #4; urine culture showing Klebsiella pneumoniae sensitive to Rocephin. Leukocytosis improving, decreased to 6.4 today. Temp with elevation at 100.2 at midnight. Blood pressure and heart rate normal. Tolerating TF - continue. 3/5 Discharge Medically stable for discharge to skilled care. Has completed 5 days of Rocephin for UTI - will continue with cephalexin 500mg per GT TID for 5 more days. Continue with tube feeding and chronic medications. F/U with Dr Curtis in 1 week. See orders for details. Resuscitation Status: Full Code Discharge Plan - Discharge Disposition Discharge Date: 08/23/17 Disposition: 03 [place] [facility] [place] *Condition: Improved Reason For Visit (Visit label in EMR): Severe sepsis, uti - Discharge Medications *Discharge Medications: New CephALEXin ORAL LIQ [Keflex 250 mg/5 ml Oral Liquid] 10 ml GT TID #150 ml Continue Escitalopram [Lexapro] 10 mg PEG DAILY Warfarin Sodium 2 mg PEG PM Simvastatin [Zocor] 10 mg GT HS Ondansetron HCl 8 mg PO Q8H PRN PRN Reason: Nausea Albuterol Neb (0.083%) [Proventil Neb (0.083%)] 1 vial INH Q4H PRN PRN Reason: Wheezing Acetaminophen 15 ml GT Q4H PRN PRN Reason: Pain Nutrit Supp/Inulin/Fos/Fiber [Fibersource Hn Liquid] 1,500 ml PO HS Tamsulosin [Flomax] 0.4 mg GT HS Sennosides [Senokot] 8.6 mg GT DAILY Divalproex [Depakote] 125 mg GT BID Gabapentin [Neurontin] 200 mg GT BID Carboxymethylcellulose Sodium [Refresh Tears] 1 drop EACH EYE Q6H PRN PRN Reason: Dry Eyes FentaNYL PATCH [Duragesic Patch] 1 patch TD Q72H #1 box Ranitidine [Zantac] 150 mg PEG HS Metoprolol Tartrate [Lopressor] 12.5 mg GT BID Mupirocin Ointment [Bactroban Ointmment] 1 applicatio TOP BID Changed Oxycodone/Acetaminophen 5/325 [Percocet 5/325] 1 tab GT Q6H PRN #30 tab PRN Reason: Pain - Discharge Packet/Instructions *Diet: NPO. All meds through [facility]. Tube feeding of Fibersource HN 125ml x 12 hours start at 1700. *Activity: As tolerated *Pain Management/Treatment: Continue prior pain medications *Wound Care: N/A *Expected Signs/Symptoms: Resolution of infection. No furter temp elevations. *Notify Physician if: Increase pain, n/v, diarrhea or difficuty breathing. *During Business Hours Contact: Nursing staff at . *After Business Hours Contact: Nursing staff at . *Pending Lab/Results: No Pending Lab - Referrals/Follow Up *Referrals/Follow Up: Donovan Curtis MD [Primary Care Provider] - 1 Week (Hospital follow up for sepsis secondary to UTI. ) - Patient Handouts Patient Handouts: Urinary Tract Infection in Men (GEN), Sepsis (GEN) - Dismissal Complete Discharge Instructions are:: Complete Physician Narrative - Narrative Physician: Seymour Scott MD Attestation Narrative: Date: 08/23/17 Time: 1033 I have independently interviewed and examined patient prior to discharge. See my progress note for details. Medically stable for discharge to skilled care.
--- NOTE | 2017-08-23 11:00 | Pharmacy Consult ---
Pharmacy Consult-Warfarin - Laboratory Information 08/20/17 08/21/17 08/22/17 06:08 04:23 04:55 INR 2.27 H 1.64 H 1.70 H 08/23/17 04:44 INR 2.40 H - Consult Information The INR was 2.40 so I will order Warfarin 3 mg p.o. today at noon. Thanks for the Warfarin Protocol, Caleb Henderson, Pharmacist.
[2017-08-23] MEDS: DIVALPROEX SPRINKLE 125 MG CAPSULE PEG SCH (11:08)
[2017-08-23] MEDS: GABAPENTIN 100 MG CAPSULE PEG SCH (11:08)
[2017-08-23] MEDS: SENNOSIDES 8.6 MG TABLET PO SCH (11:09)
[2017-08-23] MEDS: ESCITALOPRAM 10 MG TABLET PEG SCH (11:09)
[2017-08-23 11:46] VITALS: PULSE 67
[2017-08-23] MEDS ORDERED: WARFARIN 3 MG TABLET PO SCH (12:00)
[2017-08-23 12:01] VITALS: RESP 18; TEMP 97.5
[2017-08-23 12:02] VITALS: BP 117/63
== END 2017-08-23 13:15 | DRG 872 ==
LOC: ED 14:50 → MED 14:50 → SUATTDRO 19:01 → MED 19:45
PROVIDERS: ADMIT Internal Medicine; ATTEND Hospitalist

== ENCOUNTER 2017-10-05 19:57 | Inpatient (IN) ==
--- NOTE | 2017-10-05 20:10 | Emergency Department Report ---
General Adult HPI - General Stated complaint: Upper GI bleed Time Seen by Provider: 10/05/17 20:08 Source: patient, family, EMS Mode of arrival: EMS Limitations: other (Dementia) - History of Present Illness HPI narrative: 82-year-old male presents to the emergency department with the chief complaint of GI bleeding. Patient had had an episode of coffee-ground emesis prior to arrival to the emergency department. Patient was also noted to be having maroon stool. Onset of symptoms was noted prior to arrival to the emergency department today. Patient is anticoagulated on warfarin. He denies any current pain or discomfort. Patient is at his baseline mental status and able to answer some questions. He was at [place] when his symptoms began. Symptoms have been persistent in nature since onset. He does not know if he has had a colonoscopy / EGD in the past. No other complaints or associated symptoms at this time. Denies any trauma or injury. - Related Data Home Medications Medication Instructions Recorded Confirmed Escitalopram [Lexapro] 20 mg PEG DAILY 06/13/17 10/05/17 Metoprolol Tartrate [Lopressor] 12.5 mg GT BID 06/13/17 10/05/17 Ranitidine [Zantac] 150 mg PEG HS 06/13/17 10/05/17 Warfarin Sodium 2 mg PEG PM 06/13/17 10/05/17 Acetaminophen 15 ml GT Q4H PRN 08/19/17 10/05/17 Albuterol Neb (0.083%) [Proventil 1 vial INH Q4H PRN 08/19/17 10/05/17 Neb (0.083%)] Divalproex [Depakote] 125 mg GT BID 08/19/17 10/05/17 Gabapentin [Neurontin] 200 mg GT BID 08/19/17 10/05/17 Mupirocin Ointment [Bactroban 1 applicatio TOP BID 08/19/17 10/05/17 Ointmment] Nutrit Supp/Inulin/Fos/Fiber 1,500 ml PO HS 08/19/17 10/05/17 [Fibersource Hn Liquid] Sennosides [Senokot] 8.6 mg GT DAILY 08/19/17 10/05/17 Simvastatin [Zocor] 10 mg GT HS 08/19/17 10/05/17 Tamsulosin [Flomax] 0.4 mg GT HS 08/19/17 10/05/17 Previous Rx's Medication Instructions Recorded FentaNYL PATCH [Duragesic Patch] 1 patch TD Q72H #1 box 08/23/17 Oxycodone/Acetaminophen 5/325 1 tab GT Q6H PRN #30 tab 08/23/17 [Percocet 5/325] Allergies Allergy/AdvReac Type Severity Reaction Status Date / Time No Known Allergies Allergy Verified 08/19/17 15:15 Review of Systems Limitations: ROS unobtainable due to patient's medical condition PFSH Patient Stated Medical History Cerebrovascular Accident Yes Hypertension Yes Other Respiratory Yes: HX OF WHEEZING Gastroesophageal Reflux Yes Disease Hx Benign Prostatic Yes Hyperplasia Hx Incontinence Yes Other Musculoskeletal Yes: CONTRACTURES Other Behavioral Health Yes: [facility] CVA Surgical History: Gastrostomy tube Family History Updates: Diabetes - Social History Smoking status: Former smoker Substance use type: does not use Alcohol intake frequency: does not drink Physical Exam - Limitations Limitations: other (Dementia) - General General appearance: alert, in no apparent distress - Normal Exams: Head:: Normocephalic without trauma Eyes:: Pupils are PERRLA w/ EOMI, No scleral icterus, irritation, or foreign bodies noted ENMT:: No facial trauma, nasal exudates, pharyngeal erythema, or exudates are noted Dental: No fractured, loose, or missing teeth noted Neck:: Full range of motion, without adenopathy, JVD, bruits or thyromegaly Chest/Respirations:: Clear all valenzuela, with good airflow, and symmetry bilaterally Cardiovascular:: Regular rate and rhythm, without murmur or gallop, Pulses 2+ all extremities, capillary refill, <2 seconds all extremities Abdomen:: Bowel sounds positive, soft, non-tender, non-distended, no hepatosplenomegaly, masses or bruits noted (Rectal Exam - Dark Maroon stool. Heme +. ) Lymphatic:: No lymphadenopathy, or lymphedema noted Musculoskeletal:: No tenderness, or deformity noted, good range of motion, all extremities Integumentary:: No rashes, hives, or bruising noted, hair and nails, without abnormality Neurological:: Patient is alert (Alert and oriented x 1-2. Baseline Mental Status. ) Course Vital Signs Temperature 98.4 F 04/17/18 19:57 Pulse Rate 100 10/05/17 19:57 Respiratory Rate 22 10/05/17 19:57 Blood Pressure 86/51 10/05/17 19:57 Pulse Oximetry 95 10/05/17 19:57 Temperature 98.4 F 10/05/17 19:57 Pulse Rate 78 10/06/17 00:00 Respiratory Rate 14 10/05/17 21:41 Blood Pressure 90/54 10/05/17 21:32 Pulse Oximetry 97 10/05/17 21:41 Medical Decision Making - MDM Narrative Medical decision making narrative: Patient's arrives at bedside and she is the durable power of associate attorney for medical decision making for the patient. Patient's has been discussing DNR status with the patient's nursing facility and after a long discussion would like to make the patient a DNR at this time. Patient is given 2 500 boluses of normal saline intravenously. He is given 10 mg of vitamin K intravenously times one. He is ordered 4 units of FFP. He is cross matched and will be transfused 2 units of PRBCs due to the hypotension. Patient is discussed with Dr. Morrow who is in agreement with keeping the patient here in the ICU and he will see the patient in consultation as needed. Patient is discussed with Dr. Yasir Ramires from the hospitalist service who agrees to accept the patient to his service. He is in agreement with the current plan of management. Patient and family are in agreement with the current plan of management. After discussion with the hospitalist physician and surgeon we will hold off on obtaining abdominal imaging until the patient has a more stable blood pressure at this time. Patient declines abdominal pain with palpation of the abdomen. No further orders from accepting or consulting physicians who are in agreement with the current plan of management. Patient is admitted to the ICU in critical condition. I have no active source of infection at this time. No current indication for antibiotic therapy. - Differential Diagnosis GI bleed, anemia, metabolic disorder, chronic anticoagulation - Lab Data Result diagrams: 10/05/17 20:12 10/05/17 20:12 Lab Results 10/05/17 10/05/17 10/05/17 Range/Units 20:12 20:12 20:12 WBC 16.0 H (4.5-11.0) T/MM3 RBC 3.11 L (4.50-5.90) M/MM3 Hgb 9.9 L (13.5-17.5) GM/DL Hct 30.5 L (41-53) % MCV 98.1 (80-100) UM3 MCH 31.8 (26-34) UUG MCHC 32.5 (31-37) GM/DL RDW Std Deviation 50.4 H (36.9-50.2) FL Plt Count 257 (130-400) T/MM3 MPV 11.6 (9.4-12.4) UM3 Immature Gran % (Auto) Not performed Neut % (Auto) Not performed Lymph % (Auto) Not performed Cascade % (Auto) Not performed Eos % (Auto) Not performed Baso % (Auto) Not performed Neut # (Auto) Not performed Lymph # (Auto) Not performed Cascade # (Auto) Not performed Eos # (Auto) Not performed Baso # (Auto) Not performed Abs Immat Gran (auto) Not performed Neutrophils % (Manual) 84.0 H (33-66) % Band Neutrophils % 1.0 (0-6) % Lymphocytes % (Manual) 7.0 L (23-45) % Monocytes % (Manual) 7.0 (0-9.0) % Eosinophils % (Manual) 1.0 (0-4) % Neutrophils # (Manual) 13.4 H (1.8-7.7) T/MM3 Band Neutrophils # 0.2 T/MM3 Lymphocytes # (Manual) 1.1 (1-4.8) T/MM3 Monocytes # (Manual) 1.1 H (0-0.8) T/MM3 Eosinophils # (Manual) 0.2 (0-0.5) T/MM3 RBC Morph Comment Normal INR (0.92-1.18) APTT (24-36) SEC Turbidity < 20 (0-20) Sodium 137 (134-144) MEQ/L Potassium 5.0 (3.6-5) MEQ/L Chloride 101 (98-107) MEQ/L Carbon Dioxide 21 L (22-30) MEQ/L Anion Gap 15 (5-15) meq/L BUN 47.0 H (9-20) MG/DL Creatinine 0.9 (0.8-1.5) mg/dL GFR Calculation 81 BUN/Creatinine Ratio 52 H (6-26) RATIO Glucose 190 H (75-110) MG/DL Calculated Osmolality 281 H (261-280) MOSM/KG Calcium 8.3 L (8.4-10.2) MG/DL Total Bilirubin 0.40 (0.20-1.30) MG/DL Icterus Index < 2 (0-7) AST 19 (17-59) U/L ALT 22 (1-50) U/L Alkaline Phosphatase 89 (38-126) U/L Troponin I < 0.012 (0-0.12) ng/ml Total Protein 6.1 L (6.3-8.2) g/dL Albumin 3.2 L (3.5-5.0) g/dL Globulin 2.9 (2.4-3.6) G/DL Albumin/Globulin Ratio 1.1 (1.1-2.2) RATIO Lipase 18 L (23-300) U/L Specimen Hemolysis < 15 (0-25) Blood Type AB Positive Antibody Screen Negative Crossmatch (AHG) See Detail Blood Product Request 10/05/17 10/05/17 Range/Units 20:12 20:47 WBC (4.5-11.0) T/MM3 RBC (4.50-5.90) M/MM3 Hgb (13.5-17.5) GM/DL Hct (41-53) % MCV (80-100) UM3 MCH (26-34) UUG MCHC (31-37) GM/DL RDW Std Deviation (36.9-50.2) FL Plt Count (130-400) T/MM3 MPV (9.4-12.4) UM3 Immature Gran % (Auto) Neut % (Auto) Lymph % (Auto) Cascade % (Auto) Eos % (Auto) Baso % (Auto) Neut # (Auto) Lymph # (Auto) Cascade # (Auto) Eos # (Auto) Baso # (Auto) Abs Immat Gran (auto) Neutrophils % (Manual) (33-66) % Band Neutrophils % (0-6) % Lymphocytes % (Manual) (23-45) % Monocytes % (Manual) (0-9.0) % Eosinophils % (Manual) (0-4) % Neutrophils # (Manual) (1.8-7.7) T/MM3 Band Neutrophils # T/MM3 Lymphocytes # (Manual) (1-4.8) T/MM3 Monocytes # (Manual) (0-0.8) T/MM3 Eosinophils # (Manual) (0-0.5) T/MM3 RBC Morph Comment INR 2.77 H (0.92-1.18) APTT 19.3 L (24-36) SEC Turbidity (0-20) Sodium (134-144) MEQ/L Potassium (3.6-5) MEQ/L Chloride (98-107) MEQ/L Carbon Dioxide (22-30) MEQ/L Anion Gap (5-15) meq/L BUN (9-20) MG/DL Creatinine (0.8-1.5) mg/dL GFR Calculation BUN/Creatinine Ratio (6-26) RATIO Glucose (75-110) MG/DL Calculated Osmolality (261-280) MOSM/KG Calcium (8.4-10.2) MG/DL Total Bilirubin (0.20-1.30) MG/DL Icterus Index (0-7) AST (17-59) U/L ALT (1-50) U/L Alkaline Phosphatase (38-126) U/L Troponin I (0-0.12) ng/ml Total Protein (6.3-8.2) g/dL Albumin (3.5-5.0) g/dL Globulin (2.4-3.6) G/DL Albumin/Globulin Ratio (1.1-2.2) RATIO Lipase (23-300) U/L Specimen Hemolysis (0-25) Blood Type Antibody Screen Crossmatch (AHG) Blood Product Request 1 unit ffp issued - EKG Data EKG #1 EKG results narrative: Sinus rhythm. 99 bpm. No STEMI. Critical Care Time Critical Care Time: Yes Total Critical Care Time: 47 Attestation: 47 minutes of critical care time was assessed to the patient due to the need for repeated assessment at the bedside, potential for decompensation, and complex medical decision making. Patient has signs and symptoms of active GI bleeding with a systolic blood pressure of less than 80. He also underwent reversal of his coumadin. He also was ordered to 2 units of PRBCs for transfusion. Patient was admitted to the ICU for further evaluation and treatment. Disposition Clinical Impression: Upper gastrointestinal hemorrhage Disposition: 02 To [facility] Acute Care Condition: Critical Time of Disposition: 21:15 - Seen By: physician
[2017-10-05] MEDS ORDERED: PANTOPRAZOLE 40 MG INJECTION IVP ONE (20:13)
[2017-10-05] MEDS ORDERED: PHYTONADIONE (Adult) INJ 10 MG in NS 50 ML IV ONE (20:41)
[2017-10-05] MEDS ORDERED: ONDANSETRON 4 MG/2 ML INJECTION IVP ONE (20:44)
[2017-10-05] MEDS: SALINE FLUSH 10ml SYRINGE IVF PRN (20:56)
[2017-10-05] MEDS ORDERED: ALBUTEROL 2.5mg/3ml (0.083%) NEB AEROSOL PRN (21:15)
[2017-10-05] MEDS ORDERED: ONDANSETRON 4 MG/2 ML INJECTION IVP PRN (21:41)
[2017-10-05] MEDS ORDERED: PANTOPRAZOLE 40 MG INJECTION IVP SCH (21:41)
[2017-10-05] MEDS: LR 1,000 ML IV SCH (23:07)
--- NOTE | 2017-10-05 23:14 | History & Physical Report ---
History of Present Illness Date: 10/06/17 Chief complaint: Hematemesis, hematochezia HPI: Mr. Esteban is a pleasantly demented 82 year old patient of Juan Curtis who resides at [facility] following a debilitating stroke about 4 years ago. He apparently developed the sudden onset of coffee ground emesis which was followed by hypotension and a subsequent dark, tarry loose stool. Notably, he is PEG dependent since his CVA. He has never had a GI bleed before that she is aware of. He was transported to the ER where hypotension persisted. He is on coumadin, exact indication unknown presumably further stroke prevention, his INR is therapeutic tonight at 2.27. His BP reported as low as 62/41 has improved with IVF's. He was given IV NS, IV PPI, 10 mg Vit. K, and FFP and PRBC 's are ordered. He is admitted to the CCU for further evaluation and management. His is present and indicates that he is "DNR" regarding code status, but would like all other interventions. Mr. Esteban himself is also very hard of hearing and essentially is a non-historian, the history comes from the ER provider and from his this evening. Review of Systems ROS unobtainable: due to mental status (His is unaware of any recent illnesses or complaints; he was admitted about 5 weeks ago with Klebsiella UTI sepsis. ) Past Medical History Medical History Updates: HLD. HTN. Dementia. CVA with residual L sided weakness, Dysphagia, Aphasia. 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) Current residence: Shelter Medications Home Medications Medication Instructions Recorded Confirmed Type Escitalopram [Lexapro] 20 mg PEG DAILY 06/13/17 10/05/17 History Metoprolol Tartrate [Lopressor] 12.5 mg GT BID 06/13/17 10/05/17 History Ranitidine [Zantac] 150 mg PEG HS 06/13/17 10/05/17 History Warfarin Sodium 2 mg PEG PM 06/13/17 10/05/17 History Acetaminophen 15 ml GT Q4H PRN 08/19/17 10/05/17 History Albuterol Neb (0.083%) [Proventil 1 vial INH Q4H PRN 08/19/17 10/05/17 History Neb (0.083%)] Divalproex [Depakote] 125 mg GT BID 08/19/17 10/05/17 History Gabapentin [Neurontin] 200 mg GT BID 08/19/17 10/05/17 History Mupirocin Ointment [Bactroban 1 applicatio TOP BID 08/19/17 10/05/17 History Ointmment] Nutrit Supp/Inulin/Fos/Fiber 1,500 ml PO HS 08/19/17 10/05/17 History [Fibersource Hn Liquid] Sennosides [Senokot] 8.6 mg GT DAILY 08/19/17 10/05/17 History Simvastatin [Zocor] 10 mg GT HS 08/19/17 10/05/17 History Tamsulosin [Flomax] 0.4 mg GT HS 08/19/17 10/05/17 History FentaNYL PATCH [Duragesic Patch] 1 patch TD Q72H #1 box 08/23/17 10/05/17 Rx Oxycodone/Acetaminophen 5/325 1 tab GT Q6H PRN #30 tab 08/23/17 10/05/17 Rx [Percocet 5/325] Allergies Allergy/AdvReac Type Severity Reaction Status Date / Time No Known Allergies Allergy Verified 08/19/17 15:15 Exam Vital Signs: Temperature 98.4 F 10/05/17 19:57 Pulse Rate 81 10/05/17 21:41 Respiratory Rate 14 10/05/17 21:41 Blood Pressure 90/54 10/05/17 21:32 Pulse Oximetry 97 10/05/17 21:41 Telemetry Rhythm: Sinus Rhythm Height/Weight/BMI: Height 5 ft 10 in Weight 86.5 kg Body Mass Index 27.3 - Constitutional Present: no acute distress, well nourished - Routine HEENT Exam Head: Present: normocephalic, atraumatic Eye: Present: EOMI ENT: Present: mucous membranes dry - Routine Neck Exam Present: supple - Routine Respiratory Exam Present: CTA bilaterally. Absent: accessory muscle use, dyspnea - Routine Cardiovascular Exam Present: RRR, no murmur - Routine Abdominal Exam Present: soft, normoactive bowel sounds, non distended, non tender - Routine Extremities Exam Present: pulses intact, normal capillary refill. Absent: cyanosis, clubbing, edema - Routine Skin Exam Present: intact. Absent: rash - Routine Neurological Exam Present: alert. Absent: oriented X3, hearing grossly intact - Routine Psychiatric Exam Present: unable to assess (Due to advanced dementia, [place], and aphasia (chronic)) - Additional findings Additional findings: Examination performed using telemedicine equipment with the assistance of the bedside nurse. Results - Labs CBC & Chem 7: 10/06/17 09:08 10/06/17 05:00 Assessment and Plan (1) GI bleed requiring more than 4 units of blood in 24 hours, ICU, or surgery Current visit: Yes Status: Acute (2) Dementia Current visit: Yes Status: Acute (3) Anticoagulation adequate with anticoagulant therapy Current visit: Yes Status: Acute (4) Hyperlipidemia Current visit: Yes Status: Acute (5) Cerebrovascular disease Current visit: Yes Status: Acute Assessment and Plan: Mr. Esteban is an 82 year old pleasantly demented snf resident who is PEG- dependant who presents with significant volume hemodynamically significant upper GI bleed while therapeutic on coumadin. His anticoagulant is being reversed with vitamin K and FFP, ordered and begun in the ER. PRBC's x2 are also ordered. He remains hypotensive in the CCU but is mentating near his baseline per his . IV PPI ordered, and his antihypertensives and his fentanyl patch are on hold. Although he has leukocytosis and an elevated lactic acid, this is likely due to stress/hypoperfusion however were he to spike a fever would have a low threshold for joseph-culture and empiric abx. Dr. Morrow is familiar with this patient and his family and was notified of his circumstances by the ER provider, his input and expertise in this regard are appreciated. Will provide further symptomatic, supportive, and diagnostic cares as the current workup, or as changes in his clinical scenario indicate. The plan of care was discussed with his and daughter in law at the bedside , they expressed understanding and a desire to proceed. DVT Prophylaxis: SCD's GI Prophylaxis: Protonix Resuscitation Status: Do Not Resuscitate - Physician Narrative Physician: Jenni De La Fuente MD Narrative: Date: 10/06/17 Time: 753 CC: Coffee ground emesis, melena HPI: Mr. Esteban is 82-year-old male patient who is essentially aphasic. He resides at [facility] ever since a quite debilitating stroke approximately 4 years ago. No family is in the room this morning when seen by me. He does grunt , say yes and no to questions but that's the extent of his communication. He has a peg tube in place and has been dependent on this for nutrition since his stroke. He is on warfarin for anticoagulation and his INR on presentation to the ER was 2.77. It is not entirely clear as to why he is on warfarin but he does have prior documentation of an irregular heartbeat and it appears this was started at the time of his stroke. Apparently he developed an episode of nausea and vomiting and had coffee ground emesis. He was also noted to have a black tarry stool. He was hypotensive with a low of 62/41 documented. He was given IV fluids with improvement. When seen by me this morning his blood pressure is 113/ 57. He appears to be resting comfortably. When I asked him if he hurt anywhere he nodded yes but could not, or would not tell me where. I asked him multiple places all of which were no. He is a bit hard of hearing. He denies feeling short of breath. He did deny headache, chest pain, and abdominal pain. PMH: Current medications: Tylenol 160 mg per 5 ML liquid, 15 ML Q4 hours PRN Lexapro 20 mg daily [facility] patch 50 g Q 72 hours metoprolol tartrate 12.5 mg BID Bactroban ointment BID fiber source Hn 1500 mL QHS Percocet 5/325 1 tablet Q6 hours PRN Ratitidine 150 mg QHS Senokot 8.6 mg daily Zocor 10 mg daily Flomax 0.4 mg daily warfarin 2 mg daily Albuterol q4h Depakote 125 mg BID gabapentin 200 mg BID Allergies: no known drug allergies Medical history: hypertension dyslipidemia h/o ischemic stroke with left-sided residual weakness, dysphagia s/p peg tube, expressive aphasia vascular dementia Chronic OAC-This was started after the stroke when his stroke progressed on plavix and asa. documented h/o irregular heart beat, no documentation of afib that I can find. Peripheral artery disease with only a trace flow in the right internal carotid artery which is nearly occluded approximately and decrease flow in the left internal carotid artery. History of gastritis previously on PPI and Carafate Surgical history: peg tube placement EGD Surgery to right index finger Social history: Prior smoker,[place] in 2013 with stroke. Up to 2ppd prior to that for many years No ETOH Resides in [employer] [facility] Family history: Unobtainable ROS: essentially unobtainable as pt is unable to adequately communicate. PE: Vitals: Temp: 97.7, Pulse 83 SR, RR 14, BP 113/57 Gen: Awake, Grunts and nods yes or no. Skin: warm and dry. HEENT: NC/AT PERRL, EOMI, sclera, lids and conjunctiva wnl. MMM. OP clear. Neck: SHort and thick. supple, No JVD, Carotids 2+ on left, no bruit heart but difficult to hear through rhonchi and wheezes, Quite on the right. Lungs: coarse, Exp wheezes, bilateral rhonchi Heart: regular. SR, No murmur, rub or gallop Abdomen: soft. NT/ND. +BS. Peg in left side of abdomen, scant black output MS: Left side flaccidity, 1+ edema bilaterally, palpable pulses DP. Neuro: Difficult to test, pt will not open his eyes for me. Psy: Appears guarded and grumpy Assessment and Plan: 1. UGIB -Minimal output from PEG tube but what is there is dark -Carafate, PPI (pt on Ranitidine at home, prob better to switch to PPI) -Surgery consulted -Coagulation reversed -Hgb stable after one unit transfused of PRBCs and 2 FFP -Will not resume coumadin due to this GIB, h/o gastritis and high risk of rebleeding. 2. Dysphagia -PEG dependent -Continue NPO for now, will restart tube feeds later today if he continues to have minimal output -Will await surgical recommendations. 3. H/O stroke with L sided paraplegia, aphasia, dysphagia -Switch to ASA -Statin 4. HTN -Currently well controlled off his home low dose metoprolol tartrate -continue to hold for now. 5. HLP -On zocor 10mg daily 6. BPH -On flomax 7. depression -On lexapro 8. Chronic pain -Continue fentanyl patch, gabapentin and percocet prn 9. Pt on depakote, unsure if h/o sz d/o or if this is prophylactic from stroke. -Will continue 10. Dementia 11. Prophylaxis -PPI and SCDs 12. DNR 51minutes spent in ICU caring for pt and discussion with surgery time in/time out [id number] Hospital Course Summary Disclaimer: The visit summary below is not to be considered part of the above Progress Note.
[2017-10-06] MEDS ORDERED: LR 500 ML IV SCH (01:00)
[2017-10-06] MEDS: LR 1,000 ML IV SCH ×2 (02:22→07:32)
[2017-10-06] MEDS: MORPHINE SULFATE 2mg INJ IVP PRN (05:01)
--- NOTE | 2017-10-06 08:10 | General Surgery Consult Note ---
Consult date: 10/06/17 Attending Physician: Jenni De La Fuente MD [facility] Patient Stated Medical History Cerebrovascular Accident Yes Hearing Loss Yes: L ear more significant Hypertension Yes Other Respiratory Yes: HX OF WHEEZING Gastroesophageal Reflux Yes Disease Hx Benign Prostatic Yes Hyperplasia Hx Incontinence Yes Other Musculoskeletal Yes: CONTRACTURES Other Behavioral Health Yes: AGRESSIVE BEH[facility] POST CVA Medical History Updates: HLD. HTN. Dementia. CVA 2013 with residual L sided weakness, Dysphagia, Aphasia. unsure if he has ever had sz or if he is on depakote prophylactically Surgical History: Gastrostomy tube 01/05/2014 [facility],. g-tube replacement x2 [place]. 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[employer]) Current residence: [facility] Nursing Medications Home Medications Medication Instructions Recorded Confirmed Type Escitalopram [Lexapro] 20 mg PEG DAILY 06/13/17 10/05/17 History Metoprolol Tartrate [Lopressor] 12.5 mg GT BID 06/13/17 10/05/17 History Ranitidine [Zantac] 150 mg PEG HS 06/13/17 10/05/17 History Warfarin Sodium 2 mg PEG PM 06/13/17 10/05/17 History Acetaminophen 15 ml GT Q4H PRN 08/19/17 10/05/17 History Albuterol Neb (0.083%) [Proventil 1 vial INH Q4H PRN 08/19/17 10/05/17 History Neb (0.083%)] Divalproex [Depakote] 125 mg GT BID 08/19/17 10/05/17 History Gabapentin [Neurontin] 200 mg GT BID 08/19/17 10/05/17 History Mupirocin Ointment [Bactroban 1 applicatio TOP BID 08/19/17 10/05/17 History Ointmment] Nutrit Supp/Inulin/Fos/Fiber 1,500 ml PO HS 08/19/17 10/05/17 History [Fibersource Hn Liquid] Sennosides [Senokot] 8.6 mg GT DAILY 08/19/17 10/05/17 History Simvastatin [Zocor] 10 mg GT HS 08/19/17 10/05/17 History Tamsulosin [Flomax] 0.4 mg GT HS 08/19/17 10/05/17 History FentaNYL PATCH [Duragesic Patch] 1 patch TD Q72H #1 box 08/23/17 10/05/17 Rx Oxycodone/Acetaminophen 5/325 1 tab GT Q6H PRN #30 tab 08/23/17 10/05/17 Rx [Percocet 5/325] Allergies Allergy/AdvReac Type Severity Reaction Status Date / Time No Known Allergies Allergy Verified 08/19/17 15:15 Review of Systems 10-point ROS: not fully reviewed ROS unobtainable: due to mental status (dementia and stroke, not present) - Vital Signs Last Vital Signs Temp 97.1 F 10/06/17 07:29 Pulse 83 10/06/17 07:47 Resp 14 10/06/17 06:34 BP 122/60 10/06/17 07:29 Pulse Ox 94 10/06/17 07:29 - Laboratory Result Diagrams: 10/06/17 05:00 10/06/17 05:00 General Surgery Results - Results Labs: 10/06/17 05:00 10/06/17 05:00
[2017-10-06] MEDS ORDERED: ACETAMINOPHEN 650 MG/20.3 ML SOLUTION PO PRN (08:50)
[2017-10-06] MEDS: PANTOPRAZOLE 40 MG INJECTION IVP SCH ×2 (08:55→21:34)
[2017-10-06] MEDS: VALPROIC ACID 250 MG/5 ML GT SCH ×2 (08:56→21:34)
[2017-10-06] MEDS: GABAPENTIN 100 MG CAPSULE GT SCH ×2 (08:56→21:34)
[2017-10-06] MEDS ORDERED: ACETAMINOPHEN 650 MG/20.3 ML SOLUTION GT PRN (09:15)
--- NOTE | 2017-10-06 09:40 | XRay Report ---
Indication: Hypoxia, congestion, wheezing PROCEDURE: XR chest 1V: Encounter: Initial Comparison: August 19, 2017 Findings: Lungs are stable in appearance with continued mild interstitial prominence. No new lobar consolidation. No pneumothorax or significant pleural effusion. Heart size and mediastinal contours are stable. Impression: Stable appearance of the chest with mild interstitial prominence could relate to chronic mild CHF. .
[2017-10-06] MEDS: ESCITALOPRAM 20 MG TABLET PEG SCH (09:42)
[2017-10-06] MEDS: SUCRALFATE 1gm/10ml ORAL LIQUID GT SCH ×3 (09:42→21:34)
[2017-10-06] MEDS: ALBUTEROL/IPRATROPIUM 2.5mg-0.5mg/3ml NEB AEROSOL SCH ×3 (10:50→19:09)
[2017-10-06] MEDS: NS 1,000 ML IV SCH (15:07)
--- NOTE | 2017-10-06 16:17 | Consultation ---
DATE OF CONSULTATION 10/06/2017 FINDINGS Mr. Esteban is an 82-year-old gentleman whom I was asked to see as a result of his history for hematemesis and rectal bleeding. The patient was seen earlier this morning on rounds. Unfortunately, the patient suffers from significant dementia and I was unable to obtain any information from the patient himself. He was resting comfortably upon entering the ICU. The majority of information has come from his electronic medical record as well as discussing the case last evening by phone with the emergency room physician. The patient unfortunately has suffered a prior stroke. He resides at a nearby intermediate/[place]. Apparently at the intermediate he had sudden onset of coffee-ground emesis followed by dark bloody stools. The patient was evaluated and found to be hypertensive at the intermediate. He was subsequently transferred to the emergency room for further care. Upon questioning the nurse this morning who was taking care of the patient, she informs me that he has had no further significant bloody stools since admission to the ICU. They have had very little bloody output through his gastrostomy tube. The patient does not have a prior history for peptic ulcer disease. PAST MEDICAL HISTORY, PAST SURGICAL HISTORY, MEDICATIONS, ALLERGIES, SOCIAL HISTORY, FAMILY HISTORY, REVIEW OF SYSTEMS Performed by my nurse practitioner, Waldo Alex APRN. PHYSICAL EXAMINATION GENERAL: Mr. Esteban is an elderly 82-year-old gentleman who did not appear to be in acute distress earlier this morning when evaluated. VITAL SIGNS: Temperature 97.1, pulse 84, respirations 18, blood pressure 94/52 , SAO2 91% on room air.. HEENT: Normocephalic. Pupils are equally round and react to light and accommodation. CHEST: Clear to auscultation bilaterally. HEART: Regular rate and rhythm. Normal S1 and S2 without gallops, murmurs or clicks. ABDOMEN: Palpation of the abdomen reveals it to be soft and nontender. I do not appreciate any evidence for hepatosplenomegaly nor abnormal masses. EXTREMITIES: Upon visualization it does appear that he has a contracture involving his left upper extremity. He was not moving his left upper extremity and it was present upon his anterior abdominal wall. 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 NEUROLOGIC: Neurologic status was difficult to evaluate this morning. He did open his eyes appropriately when spoken to and looked around. I did notice that he was moving his right upper extremity and right lower extremity. I did not notice any significant movement involving his left upper extremity and left lower extremity. LABORATORY/RADIOGRAPHIC EVALUATION The patient's hemoglobin last evening was 9.9. Hemoglobin today was 9.6. It does appear that his hemoglobin was 8.7 on admission. The patient's INR was elevated at 2.7 upon admission. Today his INR is decreased to 1.3. His BUN is elevated at 52.0 today indicative of recent GI bleed. Creatinine 0.8. Plasma lactate was elevated at 3.0. ASSESSMENT An 82-year-old gentleman who presented with GI bleed. Patient currently hemodynamically stable without signs of ongoing bleeding. Patient with significant past medical history/medical comorbidities significant for dementia and prior CVA. PLAN I have reviewed the orders and agree with current management. I did discuss last evening with the emergency room physician and it was my recommendation that we go ahead and give the patient some vitamin K following admission to reverse his coagulopathy. I also had recommended giving the patient some fresh frozen plasma again to reverse his coagulopathy in a timely fashion. I recommended that we treat him empirically for peptic ulcer disease. Patient is being given Carafate 1 g per G-tube q.6h. as well as Protonix 40 mg IV q.12h. I did discuss the case earlier this morning with the hospitalist. I informed the hospitalist that it would be my recommendation that we did not need to proceed with endoscopy in this elderly gentleman who has dementia and prior stroke. It would be my recommendation that we go ahead and obtain a serum H. pylori and treat if positive accordingly. Would not recommend upper endoscopy unless the patient would show signs of ongoing active bleeding and continue with empiric treatment for peptic ulcer disease. was not present this morning I will try to discuss my above recommendations with the as well when she is present. DAWN
[2017-10-06 17:20] VITALS: BMI 25.4
[2017-10-06] MEDS: BUDESONIDE INH.SOLN 0.5mg/2ml NEB AEROSOL SCH (19:09)
[2017-10-06] MEDS: SALINE FLUSH 10ml SYRINGE IVF PRN (21:41)
[2017-10-06] MEDS ORDERED: FALL RISK - PHARMACY CONSULT MC ONE (22:21)
[2017-10-06] MEDS: Oxycodone/Acetaminophen 5/325 1 TAB GT PRN (23:58)
[2017-10-06] MEDS: ARTIFICIAL TEARS 15ml EACH EYE PRN (23:59)
[2017-10-07] MEDS: MORPHINE SULFATE 2mg INJ IVP PRN (02:01)
[2017-10-07] MEDS: SUCRALFATE 1gm/10ml ORAL LIQUID GT SCH ×5 (03:59→23:00)
[2017-10-07] MEDS: NS 1,000 ML IV SCH ×2 (05:26→10:37)
[2017-10-07] MEDS: VALPROIC ACID 250 MG/5 ML GT SCH ×3 (07:57→23:00)
[2017-10-07] MEDS: ESCITALOPRAM 20 MG TABLET PEG SCH ×2 (07:57→08:39)
[2017-10-07] MEDS: GABAPENTIN 100 MG CAPSULE GT SCH ×3 (07:57→23:02)
[2017-10-07] MEDS: SALINE FLUSH 10ml SYRINGE IVF PRN ×2 (07:57→14:51)
[2017-10-07] MEDS: PANTOPRAZOLE 40 MG INJECTION IVP SCH ×2 (07:58→08:40)
[2017-10-07] MEDS: ALBUTEROL/IPRATROPIUM 2.5mg-0.5mg/3ml NEB AEROSOL SCH ×4 (08:22→20:14)
[2017-10-07] MEDS: BUDESONIDE INH.SOLN 0.5mg/2ml NEB AEROSOL SCH ×2 (08:22→20:14)
--- NOTE | 2017-10-07 08:56 | Progress Note ---
- Date 10/07/17 Subjective: Mr. Esteban is an 82 year old pleasantly demented senior living resident who is PEG- dependant who presents with hemodynamically significant upper GI bleed while therapeutic on coumadin. His anticoagulant is being reversed with vitamin K and FFP, ordered and begun in the ER. PRBC's x1 were given as well as 2 FFPs. IV PPI ordered, and his antihypertensives and his fentanyl patch are on hold. Although he has leukocytosis and an elevated lactic acid, this is likely due to stress/hypoperfusion however were he to spike a fever would have a low threshold for joseph-culture and empiric abx. Dr. Morrow is familiar with this patient and his family and was notified of his circumstances by the ER provider. He is essentially aphasic. He resides at [facility] ever since a quite debilitating stroke approximately 4 years ago. He has a peg tube in place and has been dependent on this for nutrition since his stroke. He is on warfarin for anticoagulation and his INR on presentation to the ER was 2.77. He developed an episode of nausea and vomiting and had coffee ground emesis. He was also noted to have a black tarry stool. He was hypotensive with a low of 62/ 41 documented. He was given IV fluids with improvement. He was admitted with GIB. Surgery was consulted. Conservative management is the plan at this time. This am he is more verbal for me than he was yesterday. He denies hurting anywhere this morning. He denies feeling short of breath. He is having a a cough this morning. Last sputum was not adequate. He did get a little discomfort with palpation of the abdomen but it didn't hurt until I palpated it. He did have a low-grade temp this morning and he did have leukocytosis which is new. He has not had any bowel movement since admission. He does have increased output from his peg tube but it has cleared up and is no longer black. Objective Vital signs: Temperature 97.6 F 10/07/17 07:43 Pulse Rate 80 10/07/17 07:00 Respiratory Rate 16 10/07/17 08:22 Blood Pressure 99/50 10/07/17 07:00 Pulse Oximetry 97 10/07/17 08:22 Height/Weight/BMI: Height 1.78 m Weight 80.7 kg Body Mass Index 25.4 Comments: Gen: Awake, he is communicating a little better this morning with less grunting and more verbal. Mostly will say yes or no. Skin: warm and dry. HEENT: NC/AT PERRL, EOMI, sclera, lids and conjunctiva wnl. MMM. OP clear. Neck: SHort and thick. supple, No JVD, Carotids 2+ on left, no bruit heard, Quiet on the right. Lungs: coarse, Exp wheezes, bilateral rhonchi Heart: regular. SR, No murmur, rub or gallop. Tele: SR Abdomen: soft. TTP diffusely, ?distended to me compared to yesterday. hypoactive BS. Peg in left side of abdomen, Greenish outpt MS: Left side flaccidity, 1+ edema bilaterally, palpable pulses DP. Neuro: Left sided paraplegia Psy: Affect appears appropriate Results - Labs CBC & Chem 7: 10/07/17 11:15 10/07/17 05:57 Microbiology Results: Microbiology 10/07/17 01:58 Sputum, Expectorated Gram Stain - Final 10/07/17 01:58 Sputum, Expectorated Sputum Culture - Final Assessment and Plan (1) GI bleed requiring more than 4 units of blood in 24 hours, ICU, or surgery Current visit: Yes Status: Acute (2) Dementia Current visit: Yes Status: Acute (3) Anticoagulation adequate with anticoagulant therapy Current visit: Yes Status: Acute (4) Hyperlipidemia Current visit: Yes Status: Acute (5) Cerebrovascular disease Current visit: Yes Status: Acute Assessment and Plan: Assessment and Plan: 1. UGIB -Increased outpt from PEG but it is no longer black, it is greenish -Carafate, PPI (pt on Ranitidine at home, prob better to switch to PPI) -Surgery consulted-conservative management if possible. -Coagulation reversed -Hgb labile but still only has required one unit transfused of PRBCs and 2 FFP -Will not resume coumadin due to this GIB, h/o gastritis and high risk of rebleeding. 2. Fever and leukocytosis -Will check KUB, may need CT -UA -CXR -Empiric antibiotics with cefepime 3. Dysphagia -PEG dependent -Continue NPO , no stool output and more distended today, will check a KUB -Will await surgical recommendations. 4. H/O stroke with L sided paraplegia, aphasia, dysphagia -Switch to ASA -Statin 5. HTN -Variable, from sbp 94-165 -continue to hold meds for now. -DC IVF 6. HLP -On zocor 10mg daily 7. BPH -On flomax 8. depression -On lexapro 9. Chronic pain -Continue fentanyl patch, gabapentin and percocet prn 10. Pt on depakote, unsure if h/o sz d/o or if this is prophylactic from stroke. -Will continue 11. Dementia 12. Prophylaxis -PPI and SCDs 13. DNR 37 minutes spent in ICU caring for pt and discussion with surgery time in/time out 0900/0937 I think Mr. Esteban is stable enough to transfer to unmonitored bed on the floor. - Physician Narrative Narrative: Date: 10/07/17 Time: 0850 Hospital Course Summary Disclaimer: The visit summary below is not to be considered part of the above Progress Note.
[2017-10-07] MEDS ORDERED: BISACODYL 10 MG SUPPOSITORY RECTALLY PRN (09:15)
[2017-10-07] MEDS ORDERED: SODIUM CL 7% INHAL. SOLN 4ml NEB AEROSOL ONE (09:56)
[2017-10-07] MEDS: SENNOSIDES 8.6 MG TABLET PO SCH (11:20)
[2017-10-07] MEDS: CEFEPIME 1 GM in NS 100 ML IV SCH ×2 (11:20→18:46)
--- NOTE | 2017-10-07 11:38 | XRay Report ---
Indication: Cough, Crackles PROCEDURE: XR chest 1V: Encounter: Initial Comparison: October 06, 2017 Findings: Increasing interstitial airspace opacities in both lungs with increasing lower lobe areas of consolidation. Small pleural effusions. No pneumothorax. Heart size and mediastinal contours are stable. Pulmonary vascularity is indistinct. Impression: Worsening basilar pneumonia with possible superimposed edema. .
--- NOTE | 2017-10-07 11:39 | XRay Report ---
Indication: Distention, no BM PROCEDURE: XR KUB: Encounter: Initial Comparison: None Findings: The bowel gas pattern is nonobstructive and nonspecific. Gas is seen in nondilated small and large bowel to the level of the rectum. Moderate stool is seen throughout the colon. Impression: Nonobstructive nonspecific bowel gas pattern. .
[2017-10-07] MEDS ORDERED: VANCOMYCIN - PHARMACY CONSULT MC ONE (13:28)
[2017-10-07] MEDS ORDERED: FUROSEMIDE 20 MG/2 ML INJECTION IVP ONE ×3 (13:30→23:00)
--- NOTE | 2017-10-07 14:26 | Pharmacy Consult-Antibiotics ---
Pharmacy Consult-Vancomycin - Laboratory Information WBC 14.0 T/MM3 (4.5-11.0) H D 10/07/17 05:57 BUN 35.0 MG/DL (9-20) H 10/07/17 05:57 Creatinine 0.7 mg/dL (0.8-1.5) L 10/07/17 05:57 - Consult Information VANCOMYCIN CONSULT: Dx: Pneumonia Current Renal Fx: SCr = 0.7mg/dl. Will give Vancomycin 2,000mg IV now. Then 1.5gm ivpb q12h. Will continue to monitor and adjust regimen to maintain therapeutic levels. Thank you.
[2017-10-07] MEDS: ASPIRIN 325 MG TABLET PO SCH (14:51)
[2017-10-07] MEDS: POLYETHYL GLYCOL 3350 17gm PACKET PO SCH (14:52)
[2017-10-07] MEDS ORDERED: NS FLUSH BAG 500ml IV PRN ×2 (18:41)
[2017-10-07] MEDS: DIVALPROEX 125 MG TABLET PO SCH (21:31)
[2017-10-08] MEDS: PANTOPRAZOLE 40 MG INJECTION IVP SCH ×3 (00:33→22:22)
[2017-10-08] MEDS ORDERED: FUROSEMIDE 20 MG/2 ML INJECTION IVP ONE (02:00)
[2017-10-08] MEDS: CEFEPIME 1 GM in NS 100 ML IV SCH ×3 (05:03→17:35)
[2017-10-08] MEDS: SUCRALFATE 1gm/10ml ORAL LIQUID GT SCH ×4 (05:55→22:17)
[2017-10-08] MEDS: ALBUTEROL/IPRATROPIUM 2.5mg-0.5mg/3ml NEB AEROSOL SCH ×4 (07:00→19:46)
[2017-10-08] MEDS: BUDESONIDE INH.SOLN 0.5mg/2ml NEB AEROSOL SCH ×2 (07:00→19:46)
--- NOTE | 2017-10-08 10:07 | XRay Report ---
Indication: PNA PROCEDURE: XR chest 1V: Encounter: Initial Comparison: October 07, 2017 Findings: Continued bibasilar airspace disease appears slightly improved on the right. Diffuse interstitial prominence has not changed. Small left effusion. No pneumothorax. Cardiomediastinal contours are stable. Impression: Improving aeration of the right lower lobe with persistent interstitial prominence. .
[2017-10-08] MEDS: GABAPENTIN 100 MG CAPSULE GT SCH ×2 (10:08→22:21)
[2017-10-08] MEDS: ASPIRIN 325 MG TABLET PO SCH (10:08)
[2017-10-08] MEDS: DIVALPROEX 125 MG TABLET PO SCH ×2 (10:08→22:17)
[2017-10-08] MEDS: ESCITALOPRAM 20 MG TABLET PEG SCH (10:08)
[2017-10-08] MEDS: POLYETHYL GLYCOL 3350 17gm PACKET PO SCH (10:09)
[2017-10-08] MEDS: SENNOSIDES 8.6 MG TABLET PO SCH (10:09)
[2017-10-08] MEDS: VALPROIC ACID 250 MG/5 ML GT SCH (10:55)
--- NOTE | 2017-10-08 14:14 | Progress Note ---
DATE 10/07/2017 FINDINGS Mr. Esteban was seen this evening on rounds. He was sitting upright and was without complaints. He did respond when spoken to this evening. Nursing states that he did have one black stool earlier today but has not had any further bloody stool since then, nor has he had any element of hematemesis. VITALS: Temperature 98.8, pulse 103, respirations 20, blood pressure 147/73, SaO2 93% on 2 liters per nasal cannula.. HEENT: Normocephalic. Pupils equal, round and reactive to light and accommodation. CHEST: Clear to auscultation bilaterally. HEART: Regular rate and rhythm. Normal S1 and S2 without gallops, murmurs or clicks. ABDOMEN: Palpation of the abdomen reveals it to be soft and completely nontender. The patient was receiving tube feedings through his G-tube this evening. LABORATORY/RADIOGRAPH EVALUATION The patient's last hemoglobin has drifted down to 5.4 from 8.3 earlier today. I do see that he is in the process of receiving some additional blood. ASSESSMENT 82-year-old gentleman with multiple medical comorbidities who presented with hematemesis and rectal bleeding. This is most likely secondary to gastric ulcer /peptic ulcer disease. PLAN Agree with the current management of this patient. As stated above, he is receiving additional blood this evening after his hemoglobin has drifted down to 5.4. I recommend we continue with ongoing empiric treatment for peptic ulcer disease. Will follow along in the patient's care. If he would continue to show signs of ongoing bleeding, one may need to consider proceeding with EGD from an interventional standpoint more so than from a diagnostic standpoint. Hopefully, the patient's hemoglobin will stabilize and he will not have any further signs of ongoing bleeding. Would prefer to be conservative in this elderly, demented gentleman. MTDD
--- NOTE | 2017-10-08 14:59 | Progress Note ---
- Date 10/08/17 Subjective: Mr. Esteban is an 82 year old pleasantly demented custodial resident who is PEG- dependant who presents with hemodynamically significant upper GI bleed while therapeutic on coumadin. His anticoagulant is being reversed with vitamin K and FFP, ordered and begun in the ER. PRBC's x1 were given as well as 2 FFPs. IV PPI ordered, and his antihypertensives and his fentanyl patch are on hold. Although he has leukocytosis and an elevated lactic acid, this is likely due to stress/hypoperfusion however were he to spike a fever would have a low threshold for joseph-culture and empiric abx. Dr. Morrow is familiar with this patient and his family and was notified of his circumstances by the ER provider. He is essentially aphasic. He resides at [facility] ever since a quite debilitating stroke approximately 4 years ago. He has a peg tube in place and has been dependent on this for nutrition since his stroke. He is on warfarin for anticoagulation and his INR on presentation to the ER was 2.77. He developed an episode of nausea and vomiting and had coffee ground emesis. He was also noted to have a black tarry stool. He was hypotensive with a low of 62/ 41 documented. He was given IV fluids with improvement. He was admitted with GIB. Surgery was consulted. Conservative management is the plan at this time. Last evening a repeat hemoglobin was drawn and checked and documented at 5.4. Because of that lab value he was given 2 units of packed red blood cells. This morning his hemoglobin was 11. It is very unlikely that the 5.4 was accurate. I do think he is stable from a G.I. bleed standpoint. His lungs are a bit better today on x-ray. This am he continues to be interactive and answers yes and no and short answer questions easily. He is not grunting like he has in the past. He denies hurting anywhere. He denies feeling short of breath. His cough is better. He is no longer having any dark output from his peg tube. He is tolerating his normal tube feedings. He did have a bowel movement yesterday which was black. His sputum culture does have early growth. He is on triple antibiotic therapy. Objective Vital signs: Temperature 97.4 F 10/08/17 11:03 Pulse Rate 78 10/08/17 11:03 Respiratory Rate 18 10/08/17 14:38 Blood Pressure 100/37 10/08/17 11:03 Pulse Oximetry 98 10/08/17 14:38 Rhythm: Atrial Fibrillation with Normal Ventricular Rate Height/Weight/BMI: Height 1.78 m Weight 89.4 kg Body Mass Index 25.4 Comments: Gen: Awake and alert, appears comfortable. Skin: warm and dry. HEENT: NC/AT PERRL, EOMI, sclera, lids and conjunctiva wnl. MMM. OP clear. Neck: SHort and thick. supple, No JVD, Carotids 2+ on left, no bruit heard, Quiet on the right. Lungs: coarse, No wheezes Heart: regular. SR, No murmur, rub or gallop. Tele: SR Abdomen: soft. Mild TTP diffusely, +BS. Peg in left side of abdomen MS: Left side flaccidity, 1+ edema bilaterally, palpable pulses DP. Neuro: Left sided paraplegia Psy: Affect appears appropriate Results - Labs CBC & Chem 7: 10/08/17 06:33 10/08/17 06:33 Microbiology Results: Microbiology 10/07/17 10:12 Sputum, Induced Gram Stain - Final 10/07/17 10:12 Sputum, Induced Sputum Culture - Preliminary Early growth 10/07/17 01:58 Sputum, Expectorated Gram Stain - Final 10/07/17 01:58 Sputum, Expectorated Sputum Culture - Final Assessment and Plan (1) GI bleed requiring more than 4 units of blood in 24 hours, ICU, or surgery Current visit: Yes Status: Acute (2) Dementia Current visit: Yes Status: Acute (3) Anticoagulation adequate with anticoagulant therapy Current visit: Yes Status: Acute (4) Hyperlipidemia Current visit: Yes Status: Acute (5) Cerebrovascular disease Current visit: Yes Status: Acute Assessment and Plan: Assessment and Plan: 1. UGIB -Carafate, PPI (pt on Ranitidine at home, prob better to switch to PPI) -Surgery consulted-conservative management if possible. -Coagulation reversed -Hgb labile, low Hgb last night was NOT ACCURATE. He was transfused 2 untis and is now 11. -Will not resume coumadin due to this GIB, h/o gastritis and high risk of rebleeding. 2. Fever and leukocytosis -No fevers since 4/19/18 at 0600 -WBCs normalized -CXR improved today -Antibiotics with cefepime, vanco and cipro 3. Dysphagia -PEG dependent -Continue NPO -Surgery c/s and would like conservative management at this time and I think that will be possible. 4. H/O stroke with L sided paraplegia, aphasia, dysphagia -Switch to ASA -Statin 5. HTN -Variable but reasonable -continue to hold meds for now. 6. HLP -On zocor 10mg daily 7. BPH -On flomax 8. depression -On lexapro 9. Chronic pain -Continue fentanyl patch, gabapentin and percocet prn 10. Pt on depakote, unsure if h/o sz d/o or if this is prophylactic from stroke. -Will continue 11. Dementia 12. Prophylaxis -PPI and SCDs 13. DNR - Physician Narrative Narrative: Date: 10/08/17 Time: 1456 Hospital Course Summary Disclaimer: The visit summary below is not to be considered part of the above Progress Note.
[2017-10-08] MEDS ORDERED: FUROSEMIDE 40 MG/4 ML INJECTION IVP ONE (15:09)
[2017-10-08] MEDS: POTASSIUM CHLORIDE 20 MEQ/15 ML ORAL LIQUID PO SCH (18:00)
--- NOTE | 2017-10-08 18:12 | Progress Note ---
DATE OF SERVICE 10/08/2017 FINDINGS Mr. Esteban was seen on evening rounds. He was resting and receiving enteral nutrition through his G-tube. EXAM VITAL SIGNS: Afebrile. Normotensive. Temperature 97.4, pulse 78, respirations 18, blood pressure 100/37, SAO2 98% on 2 L/nasal cannula. CHEST: Clear to auscultation bilaterally. HEART: Regular rate and rhythm. Normal S1 and S2 without gallops, murmurs or clicks. ABDOMEN: Abdomen soft, nontender. No evidence for guarding or rebound. LABORATORY/RADIOGRAPHIC EVALUATION The patient's hemoglobin is now 9.7 and earlier this morning was 11.0. BMP obtained and found to be without marked abnormalities. ASSESSMENT 82-year-old gentleman with multiple medical comorbidities, status post probable upper GI bleed. Patient currently doing well. PLAN I do believe that the hemoglobin from yesterday at 5.4 was "not accurate". The patient has had no signs of ongoing bleeding. His hemoglobin should not have decreased from 5 to 11 after a transfusion received yesterday. I feel the patient is stable from a surgical standpoint at this time and will go ahead and sign off of his care. If any further assistance is needed in the future, please do not hesitate to recontact me if needed. DAWN
[2017-10-09] MEDS: CEFEPIME 1 GM in NS 100 ML IV SCH ×3 (02:01→17:35)
[2017-10-09] MEDS: SUCRALFATE 1gm/10ml ORAL LIQUID GT SCH ×4 (03:18→20:46)
[2017-10-09] MEDS: BUDESONIDE INH.SOLN 0.5mg/2ml NEB AEROSOL SCH ×2 (07:21→19:26)
[2017-10-09] MEDS: ALBUTEROL/IPRATROPIUM 2.5mg-0.5mg/3ml NEB AEROSOL SCH ×4 (07:21→19:26)
--- NOTE | 2017-10-09 09:22 | Pharmacy Consult-Antibiotics ---
Pharmacy Consult-Vancomycin - Laboratory Information WBC 7.4 T/MM3 (4.5-11.0) 10/09/17 03:43 BUN 27.0 MG/DL (9-20) H 10/09/17 03:43 Creatinine 0.7 mg/dL (0.8-1.5) L 10/09/17 03:43 Procalcitonin 0.05 NG/ML 10/08/17 06:33 Vancomycin Trough 25.77 ug/mL (15-20) H* 10/09/17 03:43 VANCOMYCIN THERAPY: DAY 3 Renal Fx is stable. Calculated CrCl = 78ml/min. Trough = high. HOLDING REGIMEN TODAY. Will change regimen to VANCOMYCIN 1gm IV q12hrs starting at midnight tonight. New calculated levels on new regimen gives peak/trough of 42/16mcg/ml respectively. Will confirm with new trough level ordered for 10/11 prior to 1200 noon dose. Thank you.
[2017-10-09] MEDS: SALINE FLUSH 10ml SYRINGE IVF PRN (09:24)
[2017-10-09] MEDS: POTASSIUM CHLORIDE 20 MEQ/15 ML ORAL LIQUID PO SCH ×3 (09:26→17:35)
[2017-10-09] MEDS: PANTOPRAZOLE 40 MG INJECTION IVP SCH ×2 (09:26→20:46)
[2017-10-09] MEDS: DIVALPROEX 125 MG TABLET PO SCH ×2 (09:27→20:46)
[2017-10-09] MEDS: ASPIRIN 325 MG TABLET PO SCH (09:27)
[2017-10-09] MEDS: GABAPENTIN 100 MG CAPSULE GT SCH ×2 (09:27→20:46)
[2017-10-09] MEDS: SENNOSIDES 8.6 MG TABLET PO SCH (09:28)
[2017-10-09] MEDS: ESCITALOPRAM 20 MG TABLET PEG SCH (09:28)
[2017-10-09] MEDS: POLYETHYL GLYCOL 3350 17gm PACKET PO SCH (09:29)
--- NOTE | 2017-10-09 12:31 | Progress Note ---
- Date 10/09/17 Subjective: F/U: upper GI bleed, anemia, history of CVA with left sided paraplegia, aphasia and dysphagia. Mr. Esteban is seen while resting in bed. He makes eye contact with me upon arrival but refuses to answer questions or participate in the exam. Nursing reports that he just had a bath which apparently upset him as he repeatedly expressed a strong desire to be left alone. His is breathing easily on 2L without signs of distress or cough. Nursing reports that he was noted to have loose, black tarry stools last night which have improved this morning. His hemoglobin is slowly improving (Hgb 10.0) today. New hypocalcemia (Ca 8.1) noted. Absolute retic count was elevated at 0.0941 with elevated percent retic at 2.9 and elevated immature retic fraction at 22.2. Iron studies pending. Electrolytes stable. Sputum culture revealed early growth with many neutrophils , few gram + rods and cocci and rare gram - rods. He remains afebrile. Objective Vital signs: Temperature 97.9 F 10/09/17 08:00 Pulse Rate 84 10/09/17 12:00 Respiratory Rate 22 10/09/17 12:00 Blood Pressure 118/69 10/09/17 12:00 Pulse Oximetry 94 10/09/17 12:00 Rhythm: Normal Sinus Rhythm Height/Weight/BMI: Height 5 ft 10 in Weight 194 lb 7.163 oz Body Mass Index 25.4 Comments: Patient alert, resting in bed. Refuses to answer questions on exam or participate in exam. Breathing easily on 2L NC. - Constitutional Present: no acute distress, well nourished, well developed - Routine HEENT Exam Head: Present: normocephalic, atraumatic Eye: Present: PERRL. Absent: conjunctival icterus ENT: Present: mucous membranes moist - Routine Respiratory Exam Absent: respiratory distress, wheezes Comments: Course breath sounds bilaterally; no cough or distress on exam; breathing easily on 2L NC. - Routine Cardiovascular Exam Present: RRR, no murmur - Routine Abdominal Exam Present: soft, normoactive bowel sounds Comments: PEG left side of abdomen. - Routine Extremities Exam Present: edema (1+), pulses intact Comments: Left sided flaccidity. - Routine Musculoskeletal Exam Musculoskeletal: Present: no clubbing or cyanosis - Routine Skin Exam Present: dry, warm Comments: Afebrile. - Routine Neurological Exam Present: alert, hearing grossly intact. Absent: tremors Refuses to speak on exam; left sided paraplegia (chronic). - Routine Psychiatric Exam Present: agitated Comments: Refuses to answer questions on exam or participate in exam. Concern for depression. Results - Labs CBC & Chem 7: 10/09/17 03:43 10/09/17 03:43 Microbiology Results: Microbiology 10/07/17 10:12 Sputum, Induced Gram Stain - Final 10/07/17 10:12 Sputum, Induced Sputum Culture - Preliminary Early growth 10/07/17 01:58 Sputum, Expectorated Gram Stain - Final 10/07/17 01:58 Sputum, Expectorated Sputum Culture - Final Assessment and Plan (1) GI bleed requiring more than 4 units of blood in 24 hours, ICU, or surgery Current visit: Yes Status: Acute (2) Dementia Current visit: Yes Status: Chronic (3) Anticoagulation adequate with anticoagulant therapy Current visit: Yes Status: Chronic (4) Hyperlipidemia Current visit: Yes Status: Chronic (5) Cerebrovascular disease Current visit: Yes Status: Chronic Assessment and Plan: Assessment and Plan - 10/09/17: Acute upper GI bleed -Carafate, PPI (pt on Ranitidine at home, prob better to switch to PPI at time of discharge) -Continue conservative treatment per surgery - appreciate their time and expertise. -Hemoglobin slowing trending up (hgb 10.0). Continue to monitor closely. -Loose, black, tarry stools noted by nursing on 10/08/17 which have resolved per nursing today. Continue to monitor closely. -Will not resume Coumadin due to this GI bleed, h/o gastritis and high risk of rebleeding. -Iron studies pending. Retic count elevated. Acute blood loss anemia Fever and leukocytosis - resolved. -No fevers since 10/07/17 at 0600 -WBCs normalized -CXR repeated today - results pending. -Continue empiric therapy with cefepime, vanco and cipro (initiated 10/07/17). Dysphagia -PEG dependent; continue NPO H/O stroke with left sided paraplegia, aphasia, dysphagia -Patient switched to ASA from warfarin on 10/07/17. HTN -Stable, trending up. Continue to monitor closely. -Continue to hold home metoprolol. Hyperlipidemia. -Zocor 10mg daily currently on hold. Will resume. BPH -Home Flomax remains on hold given NPO status. Depression -On Lexapro and Depakote- will continue. Monitor closely. May need psych consult. Chronic pain -Continue fentanyl patch, gabapentin and percocet prn Hyperglycemia, no known history of diabetes. -Will continue to monitor. Will obtain A1c. [place] Acute upper GI bleed Acute blood loss anemia Possible pneumonia (POA) Fever and leukocytosis - resolved Elevated lactic acid - suspect secondary to hypovolemia from acute GI bleed Dysphagia - PEG dependent; continue NPO H/O stroke with left sided paraplegia, aphasia, dysphagia -Patient switched to ASA from warfarin on 10/07/17. HTN Hyperlipidemia. BPH Depression Chronic pain Hyperglycemia, no known history of diabetes. DVT Prophylaxis: SCD's GI Prophylaxis: Protonix Resuscitation Status: Do Not Resuscitate - Time spent with patient Time with patient PN: 25 minutes - Physician Narrative Physician: Seymour Scott MD Narrative: Date: 10/09/17 Time: 1420 Have independently interviewed and examined pt. Chart reviewed. Case discussed with my PA. Care plan developed with my supervision; agree with above. Resting in bed. Readily awakens to verbal stimuli. Non verbal. Breathing comfortably. HGB 10.0 this am. Lungs: decreased, no distress CV: regular AB: soft nt/nd EXT: no edema, SCD in place. Plan: Hemoglobin remaining stable. WBC normalized. Will discontinue Vancomycin and ciprofloxacin. Monitor lab. Continue care. Hospital Course Summary Disclaimer: The visit summary below is not to be considered part of the above Progress Note. Hospital Course: 10/05/17 Admission to CCU Mr. Esteban is an 82 year old pleasantly demented residential resident who is PEG- dependant who presents with significant volume hemodynamically significant upper GI bleed while therapeutic on Coumadin. His anticoagulant is being reversed with vitamin K and FFP, ordered and begun in the ER. PRBC's x2 are also ordered. He remains hypotensive in the CCU but is mentating near his baseline per his . IV PPI ordered, and his antihypertensives and his fentanyl patch are on hold. Although he has leukocytosis and an elevated lactic acid, this is likely due to stress/hypoperfusion however were he to spike a fever would have a low threshold for joseph-culture and empiric abx. Dr. Morrow is familiar with this patient and his family and was notified of his circumstances by the ER provider, his input and expertise in this regard are appreciated. Will provide further symptomatic, supportive, and diagnostic cares as the current workup, or as changes in his clinical scenario indicate. The plan of care was discussed with his and daughter in law at the bedside , they expressed understanding and a desire to proceed. 10/06/17 Minimal output from PEG tube but what is there is dark Carafate, PPI (pt on Ranitidine at home, prob better to switch to PPI) Surgery consulted Coagulation reversed - Switch to ASA once safe to initiate therapy. Hgb stable after one unit transfused of PRBCs and 2 FFP Will not resume coumadin due to this GIB, h/o gastritis and high risk of rebleeding. Continue NPO for now, will restart tube feeds later today if he continues to have minimal output Will await surgical recommendations. Dr Morrow: I did discuss last evening with the emergency room physician and it was my recommendation that we go ahead and give the patient some vitamin K following admission to reverse his coagulopathy. I also had recommended giving the patient some fresh frozen plasma again to reverse his coagulopathy in a timely fashion. I recommended that we treat him empirically for peptic ulcer disease. Patient is being given Carafate 1 g per G-tube q.6h. as well as Protonix 40 mg IV q.12h. I did discuss the case earlier this morning with the hospitalist. I informed the hospitalist that it would be my recommendation that we did not need to proceed with endoscopy in this elderly gentleman who has dementia and prior stroke. It would be my recommendation that we go ahead and obtain a serum H. pylori and treat if positive accordingly. Would not recommend upper endoscopy unless the patient would show signs of ongoing active bleeding and continue with empiric treatment for peptic ulcer disease. was not present this morning I will try to discuss my above recommendations with the as well when she is present. 10/07/17 Stable enough to transfer to unmonitored bed on the floor. Repeat hemoglobin decreased to 5.4. Patient transfused 1 unit of pRBC. 10/08/17 Hgb labile, low Hgb last night was NOT ACCURATE. He was transfused 1 units and is now 11. Will not resume Coumadin due to this GIB, h/o gastritis and high risk of rebleeding. Fever and leukocytosis No fevers since 10/07/17 at 0600, WBCs normalized, CXR improved today, Antibiotics with cefepime, vancomycin and ciprofloxacin. 10/09/17 Hemoglobin remaining stable. WBC normalized. Will discontinue Vancomycin and ciprofloxacin. Monitor lab. Continue care.
[2017-10-09] MEDS: SIMVASTATIN 10 MG TABLET GT SCH (22:58)
[2017-10-10] MEDS: SUCRALFATE 1gm/10ml ORAL LIQUID GT SCH ×4 (03:00→20:34)
[2017-10-10] MEDS: CEFEPIME 1 GM in NS 100 ML IV SCH ×3 (03:11→17:28)
[2017-10-10] MEDS: Oxycodone/Acetaminophen 5/325 1 TAB GT PRN ×2 (03:11→06:34)
[2017-10-10] MEDS: ALBUTEROL/IPRATROPIUM 2.5mg-0.5mg/3ml NEB AEROSOL SCH ×4 (07:01→19:21)
[2017-10-10] MEDS: BUDESONIDE INH.SOLN 0.5mg/2ml NEB AEROSOL SCH ×2 (07:06→19:21)
[2017-10-10] MEDS: MORPHINE SULFATE 4mg INJECTION IVP PRN ×2 (08:36→23:48)
[2017-10-10] MEDS: SALINE FLUSH 10ml SYRINGE IVF PRN ×4 (08:36→20:34)
[2017-10-10] MEDS: POTASSIUM CHLORIDE 20 MEQ/15 ML ORAL LIQUID PO SCH ×2 (08:45→12:40)
[2017-10-10] MEDS: ESCITALOPRAM 20 MG TABLET PEG SCH (08:46)
[2017-10-10] MEDS: ASPIRIN 325 MG TABLET PO SCH (08:46)
[2017-10-10] MEDS: DIVALPROEX 125 MG TABLET PO SCH ×2 (08:46→20:36)
[2017-10-10] MEDS: SENNOSIDES 8.6 MG TABLET PO SCH (08:46)
[2017-10-10] MEDS: GABAPENTIN 100 MG CAPSULE GT SCH ×2 (08:46→20:37)
[2017-10-10] MEDS: POLYETHYL GLYCOL 3350 17gm PACKET PO SCH (08:47)
[2017-10-10] MEDS: PANTOPRAZOLE 40 MG INJECTION IVP SCH ×2 (08:47→20:34)
--- NOTE | 2017-10-10 10:10 | XRay Report ---
Indication: PNA PROCEDURE: XR chest 1V: Encounter: Initial Comparison: October 08, 2017 Findings: Interstitial markings remain prominent. No new or worsening consolidation. Probable small left effusion is stable. No pneumothorax. Heart size and mediastinal contours are unchanged. Pulmonary vascularity is stable. Impression: No change. .
--- NOTE | 2017-10-10 11:44 | Progress Note ---
- Date 10/10/17 Subjective: Mr Esteban is seen today in follow up. He is alert and answers questions appropriately during examination. He denies having any pain or feeling short of breath. Continues to be on 2 liters of oxygen. Staff report large soft bowel movement although no color is reported. Hemodynamically appears stable. Objective Vital signs: Temperature 99.7 F 10/10/17 08:00 Pulse Rate 99 10/10/17 08:00 Respiratory Rate 18 10/10/17 10:59 Blood Pressure 137/66 10/10/17 08:00 Pulse Oximetry 92 10/10/17 10:59 Height/Weight/BMI: Height 1.78 m Weight 89.9 kg Body Mass Index 25.4 - Constitutional Present: no acute distress - Routine HEENT Exam Eye: Present: EOMI ENT: Present: mucous membranes moist, dentition normal - Routine Respiratory Exam Present: CTA bilaterally. Absent: wheezes - Routine Cardiovascular Exam Present: RRR, S1, S2. Absent: murmur - Routine Abdominal Exam Present: soft, normoactive bowel sounds, non distended. Absent: tenderness - Routine Extremities Exam Present: no edema - Routine Skin Exam Present: intact, dry, warm - Routine Neurological Exam Present: alert, CN II-XII intact, moving all extremities - Routine Lymphatic Exam Lymphatic: Absent: adenopathy - Routine Psychiatric Exam Present: cooperative Results - Labs CBC & Chem 7: 10/10/17 04:33 10/10/17 04:33 Microbiology Results: Microbiology 10/07/17 10:12 Sputum, Induced Gram Stain - Final 10/07/17 10:12 Sputum, Induced Sputum Culture - Final Normal Respiratory Rosanne Present 10/07/17 01:58 Sputum, Expectorated Gram Stain - Final 10/07/17 01:58 Sputum, Expectorated Sputum Culture - Final Assessment and Plan (1) GI bleed requiring more than 4 units of blood in 24 hours, ICU, or surgery Current visit: Yes Status: Acute (2) Dementia Current visit: Yes Status: Chronic (3) Anticoagulation adequate with anticoagulant therapy Current visit: Yes Status: Chronic (4) Hyperlipidemia Current visit: Yes Status: Chronic (5) Cerebrovascular disease Current visit: Yes Status: Chronic Assessment and Plan: Impression Acute upper GI bleed Acute blood loss anemia Possible pneumonia (POA) Fever and leukocytosis - resolved Elevated lactic acid - suspect secondary to hypovolemia from acute GI bleed Dysphagia - PEG dependent; continue NPO H/O stroke with left sided paraplegia, aphasia, dysphagia -Patient switched to ASA from warfarin on 10/07/17. HTN Hyperlipidemia. BPH Depression Chronic pain Hyperglycemia, no known history of diabetes. Plan Hgb remains stable at 9.8. Continue to monitor stools for blood was placed back on ASA on 10/07 due to CVA history. Otherwise appears stable. PT/OT attempted to work with him on 10/07 however he refused. Will continue to follow routine labs Case discussed with attending, Dr Scott DVT Prophylaxis: SCD's Resuscitation Status: Do Not Resuscitate - Time spent with patient Time with patient PN: 25 minutes - Physician Narrative Physician: Seymour Scott MD Narrative: Date: 10/10/17 Time: 1230 Have independently interviewed and examined pt. Chart reviewed. Case discussed with my WARP DRAWER. Care plan developed with my supervision; agree with above. Resting in bed. Breathing comfortably-Maintaining on 1L O2. HBG essentially stable at 9.8. Potassium trending upwards. Lungs: decreased, no distress CV: regular AB: soft nt Plan: Will continue with Cefepime for coverage, recheck CXR and CBC in am for follow up of potential pneumonia. Wean O2 as able. Stop potassium as level increasing. Continue PPI and Carafate for GI protection. Possible discharge tomorrow if doing well. Hospital Course Summary Disclaimer: The visit summary below is not to be considered part of the above Progress Note. Hospital Course: 10/05/17 Admission to CCU Mr. Esteban is an 82 year old pleasantly demented [facility] resident who is PEG- dependant who presents with significant volume hemodynamically significant upper GI bleed while therapeutic on Coumadin. His anticoagulant is being reversed with vitamin K and FFP, ordered and begun in the ER. PRBC's x2 are also ordered. He remains hypotensive in the CCU but is mentating near his baseline per his . IV PPI ordered, and his antihypertensives and his fentanyl patch are on hold. Although he has leukocytosis and an elevated lactic acid, this is likely due to stress/hypoperfusion however were he to spike a fever would have a low threshold for joseph-culture and empiric abx. Dr. Morrow is familiar with this patient and his family and was notified of his circumstances by the ER provider, his input and expertise in this regard are appreciated. Will provide further symptomatic, supportive, and diagnostic cares as the current workup, or as changes in his clinical scenario indicate. The plan of care was discussed with his and daughter in law at the bedside , they expressed understanding and a desire to proceed. 10/06/17 Minimal output from PEG tube but what is there is dark Carafate, PPI (pt on Ranitidine at home, prob better to switch to PPI) Surgery consulted Coagulation reversed - Switch to ASA once safe to initiate therapy. Hgb stable after one unit transfused of PRBCs and 2 FFP Will not resume coumadin due to this GIB, h/o gastritis and high risk of rebleeding. Continue NPO for now, will restart tube feeds later today if he continues to have minimal output Will await surgical recommendations. Dr Morrow: I did discuss last evening with the emergency room physician and it was my recommendation that we go ahead and give the patient some vitamin K following admission to reverse his coagulopathy. I also had recommended giving the patient some fresh frozen plasma again to reverse his coagulopathy in a timely fashion. I recommended that we treat him empirically for peptic ulcer disease. Patient is being given Carafate 1 g per G-tube q.6h. as well as Protonix 40 mg IV q.12h. I did discuss the case earlier this morning with the hospitalist. I informed the hospitalist that it would be my recommendation that we did not need to proceed with endoscopy in this elderly gentleman who has dementia and prior stroke. It would be my recommendation that we go ahead and obtain a serum H. pylori and treat if positive accordingly. Would not recommend upper endoscopy unless the patient would show signs of ongoing active bleeding and continue with empiric treatment for peptic ulcer disease. was not present this morning I will try to discuss my above recommendations with the as well when she is present. 10/07/17 Stable enough to transfer to unmonitored bed on the floor. Repeat hemoglobin decreased to 5.4. Patient transfused 1 unit of pRBC. 10/08/17 Hgb labile, low Hgb last night was NOT ACCURATE. He was transfused 1 units and is now 11. Will not resume Coumadin due to this GIB, h/o gastritis and high risk of rebleeding. Fever and leukocytosis No fevers since 10/07/17 at 0600, WBCs normalized, CXR improved today, Antibiotics with cefepime, vancomycin and ciprofloxacin. 10/09/17 Hemoglobin remaining stable. WBC normalized. Will discontinue Vancomycin and ciprofloxacin. Monitor lab. Continue care. 10/10/17 Hgb remains stable at 9.8. Continue to monitor stools for blood. Was placed back on ASA on 10/07 due to CVA history. Otherwise appears stable. PT/OT attempted to work with him on 10/07 however he refused.
[2017-10-10] MEDS: SIMVASTATIN 10 MG TABLET GT SCH (20:36)
[2017-10-11] MEDS: CEFEPIME 1 GM in NS 100 ML IV SCH ×3 (02:38→17:59)
[2017-10-11] MEDS: SUCRALFATE 1gm/10ml ORAL LIQUID GT SCH ×4 (04:30→21:42)
[2017-10-11] MEDS: BUDESONIDE INH.SOLN 0.5mg/2ml NEB AEROSOL SCH ×3 (07:41→19:56)
[2017-10-11] MEDS: ALBUTEROL/IPRATROPIUM 2.5mg-0.5mg/3ml NEB AEROSOL SCH ×5 (07:41→19:56)
[2017-10-11] MEDS: POLYETHYL GLYCOL 3350 17gm PACKET PO SCH (09:11)
[2017-10-11] MEDS: ARTIFICIAL TEARS 15ml EACH EYE PRN (09:11)
[2017-10-11] MEDS: PANTOPRAZOLE 40 MG INJECTION IVP SCH ×2 (09:11→21:40)
[2017-10-11] MEDS: GABAPENTIN 100 MG CAPSULE GT SCH ×2 (09:12→21:43)
[2017-10-11] MEDS: ASPIRIN 325 MG TABLET PO SCH (09:12)
[2017-10-11] MEDS: SENNOSIDES 8.6 MG TABLET PO SCH (09:12)
[2017-10-11] MEDS: ESCITALOPRAM 20 MG TABLET PEG SCH (09:12)
[2017-10-11] MEDS: DIVALPROEX 125 MG TABLET PO SCH ×2 (09:12→21:42)
--- NOTE | 2017-10-11 09:25 | XRay Report ---
Indication: F/U infiltrate/pulm congestion PROCEDURE: XR chest 1V: Encounter: Initial Comparison: 10/09/2017 Findings: There is mild diffuse interstitial pulmonary edema or interstitial lung disease without definite lobar consolidation or pleural effusion. There is prominence of the cardiac silhouette which may be accentuated by the AP portable technique. Trachea is midline. No subdiaphragmatic free air. No significant tortuosity of the descending thoracic aorta. Impression: Mild diffuse nonspecific interstitial edema or interstitial lung disease, similar in severity to prior exam. .
--- NOTE | 2017-10-11 11:09 | Progress Note ---
- Date 10/11/17 Subjective: Mr Esteban is seen today in follow up. He continues to yell out intermittently, when asked if he is having pain he states "no". He asked me to "stay with him". He is comfortably breathing on room air and does not appear to be in any distress. Fever is up to 101 this morning. WBC count is noted to be elevated at 13.4. Objective Vital signs: Temperature 101 F H 10/11/17 08:00 Pulse Rate 98 10/11/17 08:00 Respiratory Rate 18 10/11/17 08:00 Blood Pressure 146/73 H 10/11/17 08:00 Pulse Oximetry 92 10/11/17 08:00 Height/Weight/BMI: Height 1.78 m Weight 89.5 kg Body Mass Index 25.4 - Constitutional Present: no acute distress, well nourished, well developed - Routine HEENT Exam Eye: Present: EOMI ENT: Present: mucous membranes moist, dentition normal - Routine Respiratory Exam Present: diminished air movement. Absent: wheezes - Routine Cardiovascular Exam Present: RRR, S1, S2. Absent: murmur - Routine Abdominal Exam Present: soft, normoactive bowel sounds, non distended. Absent: tenderness - Routine Extremities Exam Present: normal capillary refill - Routine Skin Exam Present: intact, dry, warm - Routine Neurological Exam Present: alert, altered mental status - Routine Lymphatic Exam Lymphatic: Absent: adenopathy - Routine Psychiatric Exam Present: cooperative Results - Labs CBC & Chem 7: 10/11/17 04:08 10/11/17 04:08 Microbiology Results: Microbiology 10/07/17 10:12 Sputum, Induced Gram Stain - Final 10/07/17 10:12 Sputum, Induced Sputum Culture - Final Normal Respiratory Rosanne Present 10/07/17 01:58 Sputum, Expectorated Gram Stain - Final 10/07/17 01:58 Sputum, Expectorated Sputum Culture - Final Assessment and Plan (1) GI bleed requiring more than 4 units of blood in 24 hours, ICU, or surgery Current visit: Yes Status: Acute (2) Dementia Current visit: Yes Status: Chronic (3) Anticoagulation adequate with anticoagulant therapy Current visit: Yes Status: Chronic (4) Hyperlipidemia Current visit: Yes Status: Chronic (5) Cerebrovascular disease Current visit: Yes Status: Chronic Assessment and Plan: Impression Acute upper GI bleed Acute blood loss anemia Possible pneumonia (POA) Fever and leukocytosis - resolved Elevated lactic acid - suspect secondary to hypovolemia from acute GI bleed Dysphagia - PEG dependent; continue NPO H/O stroke with left sided paraplegia, aphasia, dysphagia -Patient switched to ASA from warfarin on 10/07/17. HTN Hyperlipidemia. BPH Depression Chronic pain Hyperglycemia, no known history of diabetes. Plan WBC count increased to 16 with Fever of 101. Check UA and Chest Xray. Continues on Cefepime IV Hgb stable- monitor for bleeding as he was placed back on ASA on 10/07. Continue tube feedings. Resuscitation Status: Do Not Resuscitate - Physician Narrative Physician: Seymour Scott MD Narrative: Date: 10/11/17 Time: 1754 Have independently interviewed and examined patient. Chart reviewed. Case discussed with CM and my SOLAR TECHNICIAN. Care plan developed with my supervision; agree with above. Resting in bed this evening. Will open eyes to command. Starts help; not able to engage in conversation. WBC with elevation this am, temp with elevation. Lungs: decreased, no distress on O2. CV: regular AB: soft nt Plan: Repeat CXR without evidence for increased infiltrate. UA unremarkable. Will continue with cefepime and monitor. No discharge today due to increased WBC and temp elevation. Hospital Course Summary Disclaimer: The visit summary below is not to be considered part of the above Progress Note. Hospital Course: 10/05/17 Admission to CCU Mr. Esteban is an 82 year old pleasantly demented long-term resident who is PEG- dependant who presents with significant volume hemodynamically significant upper GI bleed while therapeutic on Coumadin. His anticoagulant is being reversed with vitamin K and FFP, ordered and begun in the ER. PRBC's x2 are also ordered. He remains hypotensive in the CCU but is mentating near his baseline per his . IV PPI ordered, and his antihypertensives and his fentanyl patch are on hold. Although he has leukocytosis and an elevated lactic acid, this is likely due to stress/hypoperfusion however were he to spike a fever would have a low threshold for joseph-culture and empiric abx. Dr. Morrow is familiar with this patient and his family and was notified of his circumstances by the ER provider, his input and expertise in this regard are appreciated. Will provide further symptomatic, supportive, and diagnostic cares as the current workup, or as changes in his clinical scenario indicate. The plan of care was discussed with his and daughter in law at the bedside , they expressed understanding and a desire to proceed. 10/06/17 Minimal output from PEG tube but what is there is dark Carafate, PPI (pt on Ranitidine at home, prob better to switch to PPI) Surgery consulted Coagulation reversed - Switch to ASA once safe to initiate therapy. Hgb stable after one unit transfused of PRBCs and 2 FFP Will not resume coumadin due to this GIB, h/o gastritis and high risk of rebleeding. Continue NPO for now, will restart tube feeds later today if he continues to have minimal output Will await surgical recommendations. Dr Morrow: I did discuss last evening with the emergency room physician and it was my recommendation that we go ahead and give the patient some vitamin K following admission to reverse his coagulopathy. I also had recommended giving the patient some fresh frozen plasma again to reverse his coagulopathy in a timely fashion. I recommended that we treat him empirically for peptic ulcer disease. Patient is being given Carafate 1 g per G-tube q.6h. as well as Protonix 40 mg IV q.12h. I did discuss the case earlier this morning with the hospitalist. I informed the hospitalist that it would be my recommendation that we did not need to proceed with endoscopy in this elderly gentleman who has dementia and prior stroke. It would be my recommendation that we go ahead and obtain a serum H. pylori and treat if positive accordingly. Would not recommend upper endoscopy unless the patient would show signs of ongoing active bleeding and continue with empiric treatment for peptic ulcer disease. was not present this morning I will try to discuss my above recommendations with the as well when she is present. 10/07/17 Stable enough to transfer to unmonitored bed on the floor. Repeat hemoglobin decreased to 5.4. Patient transfused 1 unit of pRBC. 10/08/17 Hgb labile, low Hgb last night was NOT ACCURATE. He was transfused 1 units and is now 11. Will not resume Coumadin due to this GIB, h/o gastritis and high risk of rebleeding. Fever and leukocytosis No fevers since 10/07/17 at 0600, WBCs normalized, CXR improved today, Antibiotics with cefepime, vancomycin and ciprofloxacin. 10/09/17 Hemoglobin remaining stable. WBC normalized. Will discontinue Vancomycin and ciprofloxacin. Monitor lab. Continue care. 10/10/17 Hgb remains stable at 9.8. Continue to monitor stools for blood. Was placed back on ASA on 10/07 due to CVA history. Otherwise appears stable. PT/OT attempted to work with him on 10/07 however he refused. 10/11/17 - WBC count increased to 16 with Fever of 101. Check UA and Chest Xray. Continues on Cefepime IV. Hgb stable- monitor for bleeding as he was placed back on ASA on 10/07.
[2017-10-11] MEDS: SIMVASTATIN 10 MG TABLET GT SCH (21:43)
[2017-10-12] MEDS: CEFEPIME 1 GM in NS 100 ML IV SCH ×2 (02:27→09:36)
[2017-10-12] MEDS: SUCRALFATE 1gm/10ml ORAL LIQUID GT SCH ×3 (02:27→14:47)
[2017-10-12] MEDS: ALBUTEROL/IPRATROPIUM 2.5mg-0.5mg/3ml NEB AEROSOL SCH ×2 (07:14→11:15)
[2017-10-12] MEDS: BUDESONIDE INH.SOLN 0.5mg/2ml NEB AEROSOL SCH (07:15)
[2017-10-12] MEDS: PANTOPRAZOLE 40 MG INJECTION IVP SCH (09:33)
[2017-10-12] MEDS: ASPIRIN 325 MG TABLET PO SCH (09:48)
[2017-10-12] MEDS: SENNOSIDES 8.6 MG TABLET PO SCH (09:48)
[2017-10-12] MEDS: DIVALPROEX 125 MG TABLET PO SCH (09:48)
[2017-10-12] MEDS: ESCITALOPRAM 20 MG TABLET PEG SCH (09:48)
[2017-10-12] MEDS: POLYETHYL GLYCOL 3350 17gm PACKET PO SCH (09:48)
[2017-10-12] MEDS: GABAPENTIN 100 MG CAPSULE GT SCH (09:48)
[2017-10-12] MEDS: ARTIFICIAL TEARS 15ml EACH EYE PRN (10:02)
--- NOTE | 2017-10-12 10:50 | Progress Note ---
- Date 10/12/17 Subjective: F/U: upper GI bleed, anemia, history of CVA with left sided paraplegia, aphasia and dysphagia. Resting in bed, but awakens readily to verbal stimuli. Reports hurts 'all over. ' Breathing okay. Maintaining saturations on RA. Stool moving. Blood pressure stable. Hemoglobin stable at 10.2. Objective Vital signs: Temperature 98.5 F 10/12/17 07:44 Pulse Rate 92 10/12/17 08:00 Respiratory Rate 20 10/12/17 07:44 Blood Pressure 128/65 10/12/17 07:44 Pulse Oximetry 93 10/12/17 07:44 Rhythm: Normal Sinus Rhythm Height/Weight/BMI: Height 1.78 m Weight 88.4 kg Body Mass Index 25.4 - Constitutional Present: well nourished, well developed, average body habitus, cooperative - Routine HEENT Exam Head: Present: normocephalic, atraumatic Eye: Present: EOMI, PERRL ENT: Present: mucous membranes moist - Routine Respiratory Exam Present: decreased breath sounds. Absent: respiratory distress - Routine Cardiovascular Exam Present: RRR, no murmur - Routine Abdominal Exam Present: soft, non distended, non tender. Absent: normoactive bowel sounds ( decreased) - Routine Extremities Exam Present: edema (Trace lower ext edema ), pulses intact. Absent: cyanosis, clubbing - Routine Musculoskeletal Exam Musculoskeletal: Present: no clubbing or cyanosis - Routine Skin Exam Present: dry, warm - Routine Neurological Exam Present: vision grossly intact, hearing grossly intact - Routine Psychiatric Exam Absent: anxious, agitated Results - Labs CBC & Chem 7: 10/12/17 04:44 10/12/17 04:44 Microbiology Results: Microbiology 10/07/17 10:12 Sputum, Induced Gram Stain - Final 10/07/17 10:12 Sputum, Induced Sputum Culture - Final Normal Respiratory Rosanne Present 10/07/17 01:58 Sputum, Expectorated Gram Stain - Final 10/07/17 01:58 Sputum, Expectorated Sputum Culture - Final Assessment and Plan (1) GI bleed requiring more than 4 units of blood in 24 hours, ICU, or surgery Current visit: Yes Status: Acute (2) Dementia Current visit: Yes Status: Chronic (3) Anticoagulation adequate with anticoagulant therapy Current visit: Yes Status: Chronic (4) Hyperlipidemia Current visit: Yes Status: Chronic (5) Cerebrovascular disease Current visit: Yes Status: Chronic Assessment and Plan: Impression Acute upper GI bleed Acute blood loss anemia Possible pneumonia (POA) Fever and leukocytosis - resolved Elevated lactic acid - suspect secondary to hypovolemia from acute GI bleed Dysphagia - PEG dependent; continue NPO H/O stroke with left sided paraplegia, aphasia, dysphagia -Patient switched to ASA from warfarin on 10/07/17. HTN Hyperlipidemia. BPH Depression Chronic pain Hyperglycemia, no known history of diabetes. Plan Fever defervesced. WBC with decrease to 12.8. Respiratory status stable. Will discharge to [facility] for continuation of care. Cephalexin 500mg per peg TID for 5 days for antimicrobial coverage. Continue with tube feeding. F/U with Dr Curtis in 1 week. See orders for details. Case discussed with CM. Time spent with patient's care and discharge greater than 30 minutes. DVT Prophylaxis: SCD's Resuscitation Status: Do Not Resuscitate - Physician Narrative Physician: Seymour Scott MD Narrative: Date: 10/12/17 Time: 1047 Hospital Course Summary Disclaimer: The visit summary below is not to be considered part of the above Progress Note. Hospital Course: 10/05/17 Admission to CCU Mr. Esteban is an 82 year old pleasantly demented correction resident who is PEG- dependant who presents with significant volume hemodynamically significant upper GI bleed while therapeutic on Coumadin. His anticoagulant is being reversed with vitamin K and FFP, ordered and begun in the ER. PRBC's x2 are also ordered. He remains hypotensive in the CCU but is mentating near his baseline per his . IV PPI ordered, and his antihypertensives and his fentanyl patch are on hold. Although he has leukocytosis and an elevated lactic acid, this is likely due to stress/hypoperfusion however were he to spike a fever would have a low threshold for joseph-culture and empiric abx. Dr. Morrow is familiar with this patient and his family and was notified of his circumstances by the ER provider, his input and expertise in this regard are appreciated. Will provide further symptomatic, supportive, and diagnostic cares as the current workup, or as changes in his clinical scenario indicate. The plan of care was discussed with his and daughter in law at the bedside , they expressed understanding and a desire to proceed. 10/06/17 Minimal output from PEG tube but what is there is dark Carafate, PPI (pt on Ranitidine at home, prob better to switch to PPI) Surgery consulted Coagulation reversed - Switch to ASA once safe to initiate therapy. Hgb stable after one unit transfused of PRBCs and 2 FFP Will not resume coumadin due to this GIB, h/o gastritis and high risk of rebleeding. Continue NPO for now, will restart tube feeds later today if he continues to have minimal output Will await surgical recommendations. Dr Morrow: I did discuss last evening with the emergency room physician and it was my recommendation that we go ahead and give the patient some vitamin K following admission to reverse his coagulopathy. I also had recommended giving the patient some fresh frozen plasma again to reverse his coagulopathy in a timely fashion. I recommended that we treat him empirically for peptic ulcer disease. Patient is being given Carafate 1 g per G-tube q.6h. as well as Protonix 40 mg IV q.12h. I did discuss the case earlier this morning with the hospitalist. I informed the hospitalist that it would be my recommendation that we did not need to proceed with endoscopy in this elderly gentleman who has dementia and prior stroke. It would be my recommendation that we go ahead and obtain a serum H. pylori and treat if positive accordingly. Would not recommend upper endoscopy unless the patient would show signs of ongoing active bleeding and continue with empiric treatment for peptic ulcer disease. was not present this morning I will try to discuss my above recommendations with the as well when she is present. 10/07/17 Stable enough to transfer to unmonitored bed on the floor. Repeat hemoglobin decreased to 5.4. Patient transfused 1 unit of pRBC. 10/08/17 Hgb labile, low Hgb last night was NOT ACCURATE. He was transfused 1 units and is now 11. Will not resume Coumadin due to this GIB, h/o gastritis and high risk of rebleeding. Fever and leukocytosis No fevers since 10/07/17 at 0600, WBCs normalized, CXR improved today, Antibiotics with cefepime, vancomycin and ciprofloxacin. 10/09/17 Hemoglobin remaining stable. WBC normalized. Will discontinue Vancomycin and ciprofloxacin. Monitor lab. Continue care. 10/10/17 Hgb remains stable at 9.8. Continue to monitor stools for blood. Was placed back on ASA on 10/07 due to CVA history. Otherwise appears stable. PT/OT attempted to work with him on 10/07 however he refused. 10/11/17 WBC count increased to 13.4 with Fever of 101. Check UA and Chest Xray. Continues on Cefepime IV. Hgb stable- monitor for bleeding as he was placed back on ASA on 10/07. 10/12/17 Fever defervesced. WBC with decrease to 12.8. Respiratory status stable. Hemoglobin stable at 10.2. Will discharge to [facility] for continuation of care. Cephalexin 500mg per peg TID for 5 days for antimicrobial coverage. Continue with tube feeding. F/U with Dr Curtis in 1 week. See orders for details.
--- NOTE | 2017-10-12 11:01 | Extended Care Facility Orders ---
Admission Orders Admit to:: [facility] Allergies/Adverse Reactions: Allergies No Known Allergies Allergy (Verified 08/19/17 15:15) Admitting Diagnosis: Upper GI bleed Admitting Physician: Seymour Scott MD Attending Physician: Dr Curtis Code Status: Do Not Resuscitate Anticiapted Length of Stay: greater than 30 days Rehab Potential: fair Rehab Prognosis: fair Diet: NPO due to dysphagia - all meds and feeding per feeding tube. Tube Feeding: Fibersource HN at 125cc/hr x12 hours - start daily at 1700. Free water 200 mL per feeding tube every 4 hours. May use Facility Protocol or Standing Orders: Yes May have flu vaccine: Yes Usp Certification: I certify that SNF services are required to be given on an Inpatient basis because of the patients need for half-way care on a continuing basis for the condition(s) for which he/she received inpatient hospital services prior to his/her transfer to the SNF. SNF inpatient care is necessary for the following reasons Indication for Usp: Not Applicable - Additional Information In Event of Arrest: Do Not Start CPR Resident is Aware of Diagnosis: Yes (Dementia limits ) Referrals: Donovan Curtis MD [Primary Care Provider] - 1 Week (Hospital follow up for Upper GI bleeding. Coumadin STOPPED - ASA to take its place. ) Additional Orders: F/U with Dr Curtis in 1 week. Routine feeding tube care.
[2017-10-12 11:21] VITALS: RESP 18
[2017-10-12 11:44] VITALS: BP 165/62; PULSE 91; TEMP 99.2; O2SAT 90
--- NOTE | 2017-10-12 18:38 | Discharge Summary ---
Discharge Information Date of admission: 10/05/17 21:13 Anticipated date of discharge: 10/12/17 Attending Physician: Seymour Scott MD Primary care physician: Donovan Curtis MD Consults: Physician consult: Dr Morrow Reason for consultation: Upper GI bleed - Discharge Diagnosis (1) GI bleed requiring more than 4 units of blood in 24 hours, ICU, or surgery Status: Acute (2) Dementia Status: Chronic (3) Anticoagulation adequate with anticoagulant therapy Status: Chronic (4) Hyperlipidemia Status: Chronic (5) Cerebrovascular disease Status: Chronic Discharge diagnosis Acute upper GI bleed Acute blood loss anemia Associated conditions and complications Possible pneumonia (POA) Fever and leukocytosis - resolved Elevated lactic acid - suspect secondary to hypovolemia from acute GI bleed Dysphagia - PEG dependent; continue NPO H/O stroke with left sided paraplegia, aphasia, dysphagia -Patient switched to ASA from warfarin on 10/07/17. HTN Hyperlipidemia. BPH Depression Chronic pain Hyperglycemia, no known history of diabetes. - Procedures Procedures: TRANSFUSIONS Admission - 2 units FFP and 1 unit pRBC (10/05 late in evening to early am 10/06) 10/07/17 - 1 unit pRBC - Laboratory Labs: Admit Lab 10/05/17 20:12 WBC 16.0 H Hgb 9.9 L Hct 30.5 L MCV 98.1 Plt Count 257 Neutrophils % (Manual) 84.0 H Band Neutrophils % 1.0 Lymphocytes % (Manual) 7.0 L Monocytes % (Manual) 7.0 Eosinophils % (Manual) 1.0 Admit Lab 10/05/17 20:12 INR 2.77 H APTT 19.3 L Admit Labs 10/05/17 10/05/17 20:12 21:55 Sodium 137 Potassium 5.0 Chloride 101 Carbon Dioxide 21 L Anion Gap 15 BUN 47.0 H Creatinine 0.9 GFR Calculation 81 BUN/Creatinine Ratio 52 H Glucose 190 H Calculated Osmolality 281 H Calcium 8.3 L Total Bilirubin 0.40 AST 19 ALT 22 Alkaline Phosphatase 89 Troponin I < 0.012 Total Protein 6.1 L Albumin 3.2 L Globulin 2.9 Albumin/Globulin Ratio 1.1 Lipase 18 L Plasma Lactate 3.5 H Iron Tests 10/09/17 03:43 Iron 41 L TIBC 306 % Saturation 13 Ferritin 127 10/12/17 04:44 04/24/18 04:44 - Microbiology Microbiology 10/07/17 10:12 Sputum, Induced Gram Stain - Final 10/07/17 10:12 Sputum, Induced Sputum Culture - Final Normal Respiratory Rosanne Present 10/07/17 01:58 Sputum, Expectorated Gram Stain - Final 10/07/17 01:58 Sputum, Expectorated Sputum Culture - Final - Radiology Radiology: Date of Exam: 10/06/17 Type of Exam: XR chest 1V Findings: Lungs are stable in appearance with continued mild interstitial prominence. No new lobar consolidation. No pneumothorax or significant pleural effusion. Heart size and mediastinal contours are stable. Impression: Stable appearance of the chest with mild interstitial prominence could relate to chronic mild CHF. Date of Exam: 10/07/17 Type of Exam: XR KUB Findings: The bowel gas pattern is nonobstructive and nonspecific. Gas is seen in nondilated small and large bowel to the level of the rectum. Moderate stool is seen throughout the colon. Impression: Nonobstructive nonspecific bowel gas pattern. Date of Exam: 10/07/17 Type of Exam: XR chest 1V Findings: Increasing interstitial airspace opacities in both lungs with increasing lower lobe areas of consolidation. Small pleural effusions. No pneumothorax. Heart size and mediastinal contours are stable. Pulmonary vascularity is indistinct. Impression: Worsening basilar pneumonia with possible superimposed edema. Date of Exam: 10/08/17 Type of Exam: XR chest 1V Findings: Continued bibasilar airspace disease appears slightly improved on the right. Diffuse interstitial prominence has not changed. Small left effusion. No pneumothorax. Cardiomediastinal contours are stable. Impression: Improving aeration of the right lower lobe with persistent interstitial prominence. Date of Exam: 10/09/17 Type of Exam: XR chest 1V Findings: Interstitial markings remain prominent. No new or worsening consolidation. Probable small left effusion is stable. No pneumothorax. Heart size and mediastinal contours are unchanged. Pulmonary vascularity is stable. Impression: No change. Date of Exam: 10/11/17 Type of Exam: XR chest 1V Findings: There is mild diffuse interstitial pulmonary edema or interstitial lung disease without definite lobar consolidation or pleural effusion. There is prominence of the cardiac silhouette which may be accentuated by the AP portable technique. Trachea is midline. No subdiaphragmatic free air. No significant tortuosity of the descending thoracic aorta. Impression: Mild diffuse nonspecific interstitial edema or interstitial lung disease, similar in severity to prior exam. History of Present Illness HPI: Mr. Esteban is a pleasantly demented 82 year old patient of Juan Curtis who resides at [facility] following a debilitating stroke about 4 years ago. He apparently developed the sudden onset of coffee ground emesis which was followed by hypotension and a subsequent dark, tarry loose stool. Notably, he is PEG dependent since his CVA. He has never had a GI bleed before that she is aware of. He was transported to the ER where hypotension persisted. He is on coumadin, exact indication unknown presumably further stroke prevention, his INR is therapeutic tonight at 2.27. His BP reported as low as 62/41 has improved with IVF's. He was given IV NS, IV PPI, 10 mg Vit. K, and FFP and PRBC 's are ordered. He is admitted to the CCU for further evaluation and management. His is present and indicates that he is "DNR" regarding code status, but would like all other interventions. Mr. Esteban himself is also very hard of hearing and essentially is a non-historian, the history comes from the ER provider and from his this evening. For complete details of the H&P refer to that document. Objective Vital signs: Temperature 99.2 F 10/12/17 11:43 Pulse Rate 91 10/12/17 11:43 Respiratory Rate 18 10/12/17 11:43 Blood Pressure 165/62 H 10/12/17 11:43 Pulse Oximetry 90 10/12/17 11:43 Rhythm: Normal Sinus Rhythm Height/Weight/BMI: Height 1.78 m Weight 88.4 kg Body Mass Index 25.4 Hospital Course This is a general summary of the patient's hospital course. For more details refer to the complete medical record. Hospital course: 10/05/17 Admission to CCU Mr. Esteban is an 82 year old pleasantly demented shelter resident who is PEG- dependant who presents with significant volume hemodynamically significant upper GI bleed while therapeutic on Coumadin. His anticoagulant is being reversed with vitamin K and FFP, ordered and begun in the ER. PRBC's x2 are also ordered. He remains hypotensive in the CCU but is mentating near his baseline per his . IV PPI ordered, and his antihypertensives and his fentanyl patch are on hold. Although he has leukocytosis and an elevated lactic acid, this is likely due to stress/hypoperfusion however were he to spike a fever would have a low threshold for joseph-culture and empiric abx. Dr. Morrow is familiar with this patient and his family and was notified of his circumstances by the ER provider, his input and expertise in this regard are appreciated. Will provide further symptomatic, supportive, and diagnostic cares as the current workup, or as changes in his clinical scenario indicate. The plan of care was discussed with his and daughter in law at the bedside , they expressed understanding and a desire to proceed. 10/06/17 Minimal output from PEG tube but what is there is dark Carafate, PPI (pt on Ranitidine at home, prob better to switch to PPI) Surgery consulted Coagulation reversed - Switch to ASA once safe to initiate therapy. Hgb stable after one unit transfused of PRBCs and 2 FFP Will not resume coumadin due to this GIB, h/o gastritis and high risk of rebleeding. Continue NPO for now, will restart tube feeds later today if he continues to have minimal output Will await surgical recommendations. Dr Morrow: I did discuss last evening with the emergency room physician and it was my recommendation that we go ahead and give the patient some vitamin K following admission to reverse his coagulopathy. I also had recommended giving the patient some fresh frozen plasma again to reverse his coagulopathy in a timely fashion. I recommended that we treat him empirically for peptic ulcer disease. Patient is being given Carafate 1 g per G-tube q.6h. as well as Protonix 40 mg IV q.12h. I did discuss the case earlier this morning with the hospitalist. I informed the hospitalist that it would be my recommendation that we did not need to proceed with endoscopy in this elderly gentleman who has dementia and prior stroke. It would be my recommendation that we go ahead and obtain a serum H. pylori and treat if positive accordingly. Would not recommend upper endoscopy unless the patient would show signs of ongoing active bleeding and continue with empiric treatment for peptic ulcer disease. was not present this morning I will try to discuss my above recommendations with the as well when she is present. 10/07/17 Stable enough to transfer to unmonitored bed on the floor. Repeat hemoglobin decreased to 5.4. Patient transfused 1 unit of pRBC. 10/08/17 Hgb labile, low Hgb last night was NOT ACCURATE. He was transfused 1 units and is now 11. Will not resume Coumadin due to this GIB, h/o gastritis and high risk of rebleeding. Fever and leukocytosis No fevers since 10/07/17 at 0600, WBCs normalized, CXR improved today, Antibiotics with cefepime, vancomycin and ciprofloxacin. 10/09/17 Hemoglobin remaining stable. WBC normalized. Will discontinue Vancomycin and ciprofloxacin. Monitor lab. Continue care. 10/10/17 Hgb remains stable at 9.8. Continue to monitor stools for blood. Was placed back on ASA on 10/07 due to CVA history. Otherwise appears stable. PT/OT attempted to work with him on 10/07 however he refused. 10/11/17 WBC count increased to 13.4 with Fever of 101. Check UA and Chest Xray. Continues on Cefepime IV. Hgb stable- monitor for bleeding as he was placed back on ASA on 10/07. 10/12/17 Fever defervesced. WBC with decrease to 12.8. Respiratory status stable. Hemoglobin stable at 10.2. Will discharge to [facility] for continuation of care. Cephalexin 500mg per peg TID for 5 days for antimicrobial coverage. Coumadin change to ASA for CV protection. Continue with tube feeding. F/U with Dr Curtis in 1 week. See orders for details. Time spent with patient: discharge greater than 30 minutes Resuscitation Status: Do Not Resuscitate Discharge Plan - Discharge Disposition Discharge Date: 10/12/17 Disposition: 04 To [facility] Home/Facility *Condition: Stable Reason For Visit (Visit label in EMR): UGIB - Discharge Medications *Discharge Medications: New Artificial Tears [Tears Naturale] 1 drops EACH EYE PRN PRN bottle PRN Reason: Dry Eyes Bisacodyl Supp [Dulcolax] 10 mg RECTALLY DAILY PRN suppositor PRN Reason: Constipation CephALEXin [Keflex 500 mg] 500 mg GT TID #15 cap Omeprazole [Prilosec] 20 mg GT DAILY #30 cap Sucralfate Oral Liq [Carafate Slurry] 1 gm GT Q6H #400 ml Aspirin [ASA] 325 mg GT DAILY tab Continue Escitalopram [Lexapro] 20 mg PEG DAILY Simvastatin [Zocor] 10 mg GT HS Albuterol Neb (0.083%) [Proventil Neb (0.083%)] 1 vial INH Q4H PRN PRN Reason: Wheezing Acetaminophen 15 ml GT Q4H PRN PRN Reason: Pain Nutrit Supp/Inulin/Fos/Fiber [Fibersource Hn Liquid] 1,500 ml PO HS Tamsulosin [Flomax] 0.4 mg GT HS Sennosides [Senokot] 8.6 mg GT DAILY Divalproex [Depakote] 125 mg GT BID Gabapentin [Neurontin] 200 mg GT BID FentaNYL PATCH [Duragesic Patch] 1 patch TD Q72H #1 box Oxycodone/Acetaminophen 5/325 [Percocet 5/325] 1 tab GT Q6H PRN #30 tab PRN Reason: Pain Ranitidine [Zantac] 150 mg PEG HS Metoprolol Tartrate [Lopressor] 12.5 mg GT BID Mupirocin Ointment [Bactroban Ointmment] 1 applicatio TOP BID Discontinued Warfarin Sodium 2 mg PEG PM - Discharge Packet/Instructions *Diet: NPO due to dysphagia - all meds and feeding per feeding tube. Tube Feeding: Fibersource HN at 125cc/hr x12 hours - start daily at 1700. Free water 200 mL per feeding tube every 4 hours. *Activity: Up with assistance. *Pain Management/Treatment: Continue prior pain medications. *Wound Care: N/A Additional Instructions: Routine feeding tube care. *Expected Signs/Symptoms: Stability of hemoglobin *Notify Physician if: Temp >100.4. Increase shortness of air. *During Business Hours Contact: Nursing staff at [facility]. *After Business Hours Contact: Nursing staff at [facility]. *Pending Lab/Results: No Pending Lab - Referrals/Follow Up *Referrals/Follow Up: Donovan Curtis MD [Primary Care Provider] - 1 Week (Hospital follow up for Upper GI bleeding. Coumadin STOPPED - ASA to take its place. ) - Patient Handouts Patient Handouts: Gastrointestinal Bleeding (GEN) - Dismissal Complete Discharge Instructions are:: Complete Physician Narrative - Narrative Physician: Seymour Scott MD Attestation Narrative: Date: 10/12/17 Time: 1834 I have independently interviewed and examined patient prior to discharge. See my progress note for details. Medically stable for discharge.
== END 2017-10-12 15:10 | DRG 377 ==
LOC: ED 19:57 → CCU 21:13 → SUATTDRO 21:13 → CCU 21:35 → MED 10-07 15:50
PROVIDERS: ADMIT Internal Medicine; ATTEND Hospitalist

== ENCOUNTER 2017-12-24 11:49 | Inpatient (IN) ==
[2017-12-24] MEDS ORDERED: NS 1,000 ML IV ONE (11:59)
[2017-12-24] MEDS ORDERED: LEVOFLOXACIN PB 750 MG/150 ML BAG IV ONE (11:59)
[2017-12-24] MEDS ORDERED: ALBUTEROL/IPRATROPIUM 2.5mg-0.5mg/3ml NEB AEROSOL ONE (12:01)
--- NOTE | 2017-12-24 12:01 | Emergency Department Report ---
Fever HPI - General Chief Complaint: Fever Stated Complaint: FEVER Time Seen by Provider: 12/24/17 11:59 Source: patient Mode of arrival: ambulatory Limitations: no limitations - History of Present Illness HPI Narrative: Patient is a 82-year-old male presents emergency room for fever, crackles in lungs. Patient resident at the assisted the symptoms were noticed this morning. Patient does complain of some mild shortness of breath but no chest pain, primary medical physician was called and recommended he come to the ER for evaluation. - Related Data Home Medications Medication Instructions Recorded Confirmed Escitalopram [Lexapro] 20 mg GT DAILY 06/13/17 12/24/17 Metoprolol Tartrate [Lopressor] 12.5 mg GT BID 06/13/17 12/24/17 Acetaminophen 15 ml GT Q4H PRN 08/19/17 12/24/17 Albuterol Neb (0.083%) [Proventil 1 vial INH Q4H PRN 08/19/17 12/24/17 Neb (0.083%)] Divalproex [Depakote] 125 mg GT BID 08/19/17 12/24/17 Gabapentin [Neurontin] 200 mg GT BID 08/19/17 12/24/17 Mupirocin Ointment [Bactroban 1 applicatio TOP BID 08/19/17 12/24/17 Ointmment] Sennosides [Senokot] 8.6 mg GT DAILY 08/19/17 12/24/17 Simvastatin [Zocor] 10 mg GT HS 08/19/17 12/24/17 Famotidine [Pepcid AC] 20 mg PO BID 12/24/17 12/24/17 Loperamide [Imodium] 2 mg PO QID PRN 12/24/17 12/24/17 Mag Hydrox/Aluminum Hyd/Simeth 30 ml PO Q4H PRN 12/24/17 12/24/17 [Alum-Mag Hydroxide-Simeth Liq] Previous Rx's Medication Instructions Recorded Artificial Tears [Tears Naturale] 1 drops EACH EYE PRN PRN bottle 10/12/17 Aspirin [ASA] 325 mg GT DAILY tab 10/12/17 Bisacodyl Supp [Dulcolax] 10 mg RECTALLY DAILY PRN 10/12/17 suppositor Sucralfate Oral Liq [Carafate 1 gm GT Q6H #400 ml 10/12/17 Slurry] FentaNYL PATCH [Duragesic Patch] 1 patch TD Q72H #10 patch 01/04/18 Hydrocodone/APAP 5/325 [[place] 1 tab PO Q4H PRN #20 tab 01/04/18 5/325] Oxycodone/Acetaminophen 5/325 1 tab GT Q6H PRN #20 tab 01/04/18 [Percocet 5/325] predniSONE [Prednisone] 10 mg GT DAILY 3 Days #3 tab 01/04/18 Allergies Allergy/AdvReac Type Severity Reaction Status Date / Time No Known Allergies Allergy Verified 12/24/17 11:55 Review of Systems Constitutional: Reports: fever, weakness. Denies: chills ENT: Denies: throat pain, dental pain Cardiovascular: Reports: dyspnea on exertion. Denies: chest pain, palpitations Respiratory: Reports: dyspnea. Denies: cough, wheezes Gastrointestinal: Denies: abdominal pain, nausea, vomiting, diarrhea Genitourinary: Denies: dysuria, frequency Musculoskeletal: Denies: back pain Neurological: Denies: headache Psychiatric: Denies: anxiety Endocrine: Denies: fatigue Hematological/Lymphatic: Denies: easy bleeding Allergic/Immunologic: Denies: facial swelling PFSH Patient Stated Medical History Cerebrovascular Accident Yes Hearing Loss Yes: L ear more significant Hypertension Yes Other Respiratory Yes: HX OF WHEEZING Gastroesophageal Reflux Yes Disease Hx Benign Prostatic Yes Hyperplasia Hx Incontinence Yes Hx Renal Disease No Other Musculoskeletal Yes: CONTRACTURES Other Behavioral Health Yes: AGRESS[facility] POST CVA Medical History Updates: HLD. HTN. Dementia. CVA with residual L sided weakness, Dysphagia, Aphasia. 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 Absent: tenderness - Chest Chest inspection: Present: symmetric chest wall rise. Absent: tenderness - Respiratory Respiratory exam: Present: normal lung sounds bilaterally, crackles (left lower lobe greater than right). Absent: respiratory distress, wheezes, accessory muscle use - Cardiovascular Cardiovascular exam: Present: regular rate, normal rhythm, normal heart sounds - Abdominal Exam Abdominal exam: Present: soft, normal bowel sounds. Absent: distention, tenderness - Extremities Exam Extremities exam: Present: full ROM, normal capillary refill. Absent: tenderness - Back Exam Back exam: Present: full ROM. Absent: tenderness, CVA tenderness (R), CVA tenderness (L), muscle spasm, paraspinal tenderness - Skin Skin exam: Present: warm, dry - Neurological Exam Neurological exam: Present: alert, oriented X3 - Psychiatric Psychiatric exam: Present: normal affect, normal mood Course Vital Signs Temperature 100.2 F 12/24/17 11:55 Pulse Rate 88 12/24/17 11:55 Respiratory Rate 24 12/24/17 11:55 Blood Pressure 153/72 H 12/24/17 11:55 Pulse Oximetry 91 12/24/17 11:55 Temperature 100.2 F 12/24/17 11:55 Pulse Rate 88 12/24/17 11:55 Respiratory Rate 24 12/24/17 11:55 Blood Pressure 153/72 H 12/24/17 11:55 Pulse Oximetry 91 12/24/17 11:55 Fever - Medical Records Attestation: I reviewed the patient's medical records. - Lab Data Attestation: I reviewed the patient's lab results. Result diagrams: 01/04/18 04:07 01/04/18 04:07 - Radiology Data Attestation: I reviewed the patient's radiology results. Left lower lobe pneumonia Disposition Clinical Impression: Pneumonia [place]: 02 [place] [facility] [place] Condition: Stable - Seen By: physician
[2017-12-24] MEDS: SALINE FLUSH 10ml SYRINGE IVF PRN (12:27)
[2017-12-24] MEDS: NS FLUSH BAG 500ml IV PRN (12:30)
--- NOTE | 2017-12-24 12:48 | XRay Report ---
Indication: altered mental status fever crackles PROCEDURE: XR chest 1V: Encounter: Initial Comparison: October 11, 2017 Findings: Obscuration of the left hemidiaphragm with opacity in the left lower lobe. Prominent interstitial markings persist in the remaining lung valenzuela, similar to the prior study. No pneumothorax. Small left pleural effusion cannot be excluded. Heart size and mediastinal contours are stable. Impression: Left lower lobe atelectasis, pneumonia or aspiration. .
[2017-12-24] MEDS: NS 1,000 ML IV SCH (14:21)
--- NOTE | 2017-12-24 14:31 | History & Physical Report ---
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 He is unable to effectively communicate, though was able to deny pain, nausea, or SOA (says "no "). Per report, he was found with emesis around his mouth at [facility], and had a fever of 101.3. BP was low at 95/62. Sats were 90% and he was placed on 4L. He was transferred to [facility] ED for evaluation. He was 87% on room air, and was placed on 5L O2. T 100.2. He was not hypotensive and HR peaked at 112. CXR showed RLL infiltrate. Lactate was elevated at 3.7; WBC was 12.7. He was bolused 1L NS. He received levaquin 750 mg IV for pneumonia. Per report, the nurses suctioned 200-300 mL of secretions in the ED. He was also given a DuoNeb treatment. Dr. Scott was notified and the patient was admitted to inpatient status for severe sepsis secondary to pneumonia/aspiration. LOS is expected to exceed 2 overnights. Review of Systems ROS unobtainable: due to mental status Past Medical History Medical History Updates: HLD. HTN. Vascular dementia. CVA with residual L sided weakness, Dysphagia, Aphasia. OA. GERD. unsure if he has ever had sz or if he is on depakote prophylactically Surgical History: Gastrostomy tube Family History: Unable to Obtain - Social History Smoking status: Former smoker (Smoked for "many years" prior to CVA) Housing: [facility] Current residence: [facility] Medications Home Medications Medication Instructions Recorded Confirmed Type Escitalopram [Lexapro] 20 mg GT DAILY 06/13/17 12/24/17 History Metoprolol Tartrate [Lopressor] 12.5 mg GT BID 06/13/17 12/24/17 History Acetaminophen 15 ml GT Q4H PRN 08/19/17 12/24/17 History Albuterol Neb (0.083%) [Proventil 1 vial INH Q4H PRN 08/19/17 12/24/17 History Neb (0.083%)] Divalproex [Depakote] 125 mg GT BID 08/19/17 12/24/17 History Gabapentin [Neurontin] 200 mg GT BID 08/19/17 12/24/17 History Mupirocin Ointment [Bactroban 1 applicatio TOP BID 08/19/17 12/24/17 History Ointmment] Sennosides [Senokot] 8.6 mg GT DAILY 08/19/17 12/24/17 History Simvastatin [Zocor] 10 mg GT HS 08/19/17 12/24/17 History Artificial Tears [Tears Naturale] 1 drops EACH EYE PRN PRN bottle 10/12/1712/06 Rx Aspirin [ASA] 325 mg GT DAILY tab 10/12/17 12/24/17 Rx Bisacodyl Supp [Dulcolax] 10 mg RECTALLY DAILY PRN 10/12/17 12/24/17 Rx suppositor FentaNYL PATCH [Duragesic Patch] 1 patch TD Q72H #1 box 10/12/17 12/24/17 Rx Oxycodone/Acetaminophen 5/325 1 tab GT Q6H PRN #30 tab 10/12/17 12/24/17 Rx [Percocet 5/325] Sucralfate Oral Liq [Carafate 1 gm GT Q6H #400 ml 10/12/17 12/24/17 Rx Slurry] Famotidine [Pepcid AC] 20 mg PO BID 12/24/17 12/24/17 History Loperamide [Imodium] 2 mg PO QID PRN 12/24/17 12/24/17 History Mag Hydrox/Aluminum Hyd/Simeth 30 ml PO Q4H PRN 12/24/17 12/24/17 History [Alum-Mag Hydroxide-Simeth Liq] Allergies Allergy/AdvReac Type Severity Reaction Status Date / Time No Known Allergies Allergy Verified 12/24/17 11:55 Exam Vital Signs: Temperature 100.2 F 12/24/17 11:55 Pulse Rate 94 12/24/17 13:15 Respiratory Rate 21 12/24/17 13:15 Blood Pressure 114/58 12/24/17 13:15 Pulse Oximetry 96 12/24/17 13:15 - Constitutional Present: well nourished, well developed - Routine HEENT Exam Head: Present: normocephalic Eye: Absent: conjunctival icterus, scleral injection ENT: Present: mucous membranes dry. Absent: dentition normal - Routine Neck Exam Present: supple. Absent: lymphadenopathy - Routine Respiratory Exam Comments: coarse; difficult to auscultate - pt frequently moans and grunts - Routine Cardiovascular Exam Present: RRR, S1, S2 - Routine Abdominal Exam Present: soft, normoactive bowel sounds, non distended, non tender Comments: PEG tube site is clean - Routine Extremities Exam Present: no edema, pulses intact Comments: contracture left hand - Routine Skin Exam Present: dry, pallor, warm - Routine Neurological Exam Present: alert. Absent: normal speech - Routine Psychiatric Exam Present: unable to assess Results - Labs CBC & Chem 7: 12/24/17 12:24 12/24/17 12:24 - Imaging and Cardiology Chest x-ray Status: image reviewed by me Additional comments: RLL infiltrate Assessment and Plan (1) Aspiration pneumonia Current visit: Yes Status: Acute Assessment and Plan: Assessment Severe sepsis - lactate 3.7; SIRS = leukocytosis, HR >90, fever Pneumonia vs aspiration pneumonia Hypoxia, room air sat 87% Reported emesis HLD HTN Vascular dementia CVA with residual L sided weakness, Dysphagia, Aphasia OA GERD Plan Admit, inpatient, under the hospitalist service. Continue Levaquin daily and add clinda for suspected aspiration. DuoNeb QID. O2 to maintain sats. Repeat lactate to ensure downward trend. Hold off on tube feeds until emesis is under control. Resume necessary home meds via IV rather than PEG - metoprolol, Pepcid, depakote. (Metoprolol parameters: SBP >180, DBP >100 or HR >120). Dosing discussed with pharmacy. NS @ 100 mL/hr. Follow BC, sputum cx. AP & old records reviewed. Code status appears to have been changed to DNR since last admission. Care to return to Dr. Curtis at time of DC. DVT Prophylaxis: SCD's GI Prophylaxis: Pepcid Resuscitation Status: Do Not Resuscitate - Physician Narrative Physician: Seymour Scott MD Narrative: Date: 12/24/17 Time: 1608 Have independently interviewed and examined pt. Chart reviewed. Case discussed with ED physician and my SMOKING PIPE MOUNTER. Care plan developed with my supervision; agree with above. Presents to ED secondary for evaluation. Was found at [facility] to have emesis around mouth and temp elevation. Patient with Hx of significant stroke 4 years ago causing significant impairment in communication and functional status. Is Feeding tube dependent. At time of my interview and exam, LOC decreased. In ED WBC and Lactate elevated. CXR showing evidence for infiltrate-concern for aspiration. Admitted for further treatment and support. Lungs: decreased, shallow breathing; coarse upper airway noises. CV: regular AB: soft nt Plan: Inpatient admission for treatment of severe sepsis secondary to pneumonia (suspect aspiration). Levaquin initiated in ED, will add Clindamycin for coverage of potential aspiration. IVF for support. Hold on Feeding tube use due to emesis. Neb treatment of DuoNeb and budesonide. Suction as needed. Monitor lab. DNR per his prior requests. Care to return to Dr Curtis at time of discharge from [facility]. Hospital Course Summary Disclaimer: The visit summary below is not to be considered part of the above Progress Note. Hospital Course: 12/24/17 Admit, inpatient, under the hospitalist service. Continue Levaquin daily and add clindamycin for suspected aspiration. DuoNeb QID. O2 to maintain sats. Repeat lactate to ensure downward trend. Hold off on tube feeds until emesis is under control. Resume necessary home meds via IV rather than PEG - metoprolol, Pepcid, depakote. (Metoprolol parameters: SBP >180, DBP >100 or HR >120) NS @ 100 mL/hr. Follow BC, sputum cx. AP & old records reviewed. Code status appears to have been changed to DNR since last admission.
[2017-12-24] MEDS ORDERED: ARTIFICIAL TEARS 15ml EACH EYE PRN (14:59)
[2017-12-24] MEDS ORDERED: ONDANSETRON 4 MG/2 ML INJECTION IVP PRN (15:07)
[2017-12-24] MEDS ORDERED: METOPROLOL 5mg/5ml INJECTION IVP PRN (15:11)
[2017-12-24] MEDS: CLINDAMYCIN PB 600 MG/50 ML BAG IV SCH ×2 (15:52→23:16)
[2017-12-24] MEDS ORDERED: ACETAMINOPHEN 650 MG SUPPOSITORY PR PRN (16:02)
[2017-12-24] MEDS: ALBUTEROL/IPRATROPIUM 2.5mg-0.5mg/3ml NEB AEROSOL SCH (19:31)
[2017-12-24] MEDS: BUDESONIDE INH.SOLN 0.5mg/2ml NEB AEROSOL SCH (19:31)
[2017-12-24] MEDS: FAMOTIDINE PB 20 MG/50 ML BAG IV SCH (20:16)
[2017-12-24] MEDS ORDERED: DIVALPROEX 125 MG TABLET PO SCH (21:00)
[2017-12-24] MEDS: VALPROATE IV SCH (21:35)
[2017-12-24] MEDS: D5W IV SCH (21:35)
[2017-12-25] MEDS: NS 1,000 ML IV SCH ×3 (03:14→20:23)
[2017-12-25] MEDS: CLINDAMYCIN PB 600 MG/50 ML BAG IV SCH ×3 (06:30→23:46)
[2017-12-25] MEDS: ALBUTEROL/IPRATROPIUM 2.5mg-0.5mg/3ml NEB AEROSOL SCH ×4 (07:13→19:23)
[2017-12-25] MEDS: BUDESONIDE INH.SOLN 0.5mg/2ml NEB AEROSOL SCH ×2 (07:13→19:23)
[2017-12-25] MEDS ORDERED: ESCITALOPRAM 10 MG TABLET GT SCH (09:00)
--- NOTE | 2017-12-25 10:40 | Progress Note ---
- Date 12/25/17 Subjective: Denies new problems. Thinks that breathing has improved. Afebrile overnight. Had a low blood pressure in the 70's, up this morning. Objective Vital signs: Temperature 99.1 F 12/25/17 07:36 Pulse Rate 93 12/25/17 07:36 Respiratory Rate 22 12/25/17 07:13 Blood Pressure 110/60 12/25/17 07:45 Pulse Oximetry 96 12/25/17 07:36 Height/Weight/BMI: Weight 89.3 kg - Constitutional Present: no acute distress - Routine Respiratory Exam Comments: mild wheezing in bilateral bases. - Routine Cardiovascular Exam Present: RRR - Routine Abdominal Exam Present: soft, non distended, non tender Comments: PEG tube in place, no surrounding erythema. - Routine Extremities Exam Present: no edema - Routine Skin Exam Present: intact, dry, warm - Routine Neurological Exam chronic left hemiparesis and aphasia. Results - Labs CBC & Chem 7: 12/25/17 03:53 12/25/17 03:53 Assessment and Plan (1) Aspiration pneumonia Current visit: Yes Status: Acute Assessment and Plan: Assessment Severe sepsis - lactate 3.7; SIRS = leukocytosis, HR >90, fever Pneumonia vs aspiration pneumonia Hypoxia, room air sat 87% Reported emesis HLD HTN Vascular dementia CVA with residual L sided weakness, Dysphagia, Aphasia OA GERD Plan sepsis resolved today - WBC returned to normal, afebrile overnight Sputum culture growing few GPC and GNR - continue levaquin and clinda Concern for aspiration on emesis - TF held at admission, restart slowly today and monitor closely DuoNeb QID. O2 to maintain sats - currently needing 5 liters, wean down today Repeat lactate to ensure downward trend. Continue metoprolol with hold parameters NS @ 100 mL/hr. - continue for now. Code status appears to have been changed to DNR since last admission. - Physician Narrative Narrative: Date: 12/25/17 Time: 1036 Hospital Course Summary Disclaimer: The visit summary below is not to be considered part of the above Progress Note. Hospital Course: 12/24/17 Admit, inpatient, under the hospitalist service. Continue Levaquin daily and add clindamycin for suspected aspiration. DuoNeb QID. O2 to maintain sats. Repeat lactate to ensure downward trend. Hold off on tube feeds until emesis is under control. Resume necessary home meds via IV rather than PEG - metoprolol, Pepcid, depakote. (Metoprolol parameters: SBP >180, DBP >100 or HR >120) NS @ 100 mL/hr. Follow BC, sputum cx. AP & old records reviewed. Code status appears to have been changed to DNR since last admission. 12/25/17 Sepsis resolved today - WBC returned to normal, afebrile overnight Sputum culture growing few GPC and GNR - continue levaquin and clinda Concern for aspiration on emesis - TF held at admission, restart slowly today and monitor closely DuoNeb QID. O2 to maintain sats - currently needing 5 liters, wean down today Repeat lactate to ensure downward trend. Continue metoprolol with hold parameters NS @ 100 mL/hr. - continue for now. Code status appears to have been changed to DNR since last admission.
[2017-12-25] MEDS: FAMOTIDINE PB 20 MG/50 ML BAG IV SCH ×2 (13:17→20:27)
[2017-12-25] MEDS: VALPROATE IV SCH ×2 (14:29→20:56)
[2017-12-25] MEDS: D5W IV SCH ×2 (14:29→20:56)
[2017-12-25] MEDS: LEVOFLOXACIN PB 750 MG/150 ML BAG IV SCH (15:49)
[2017-12-26] MEDS: ALBUTEROL/IPRATROPIUM 2.5mg-0.5mg/3ml NEB AEROSOL PRN (01:09)
[2017-12-26] MEDS: CLINDAMYCIN PB 600 MG/50 ML BAG IV SCH ×3 (06:17→22:55)
[2017-12-26] MEDS: NS 1,000 ML IV SCH ×2 (06:17→21:08)
[2017-12-26] MEDS: BUDESONIDE INH.SOLN 0.5mg/2ml NEB AEROSOL SCH ×2 (08:00→21:15)
[2017-12-26] MEDS: ALBUTEROL/IPRATROPIUM 2.5mg-0.5mg/3ml NEB AEROSOL SCH ×4 (08:00→21:15)
[2017-12-26] MEDS: FAMOTIDINE PB 20 MG/50 ML BAG IV SCH ×2 (10:01→20:52)
--- NOTE | 2017-12-26 10:55 | XRay Report ---
Indication: pt coughing up tube feed PROCEDURE: XR chest 1V: Encounter: Initial Comparison: December 24, 2017 Findings: Worsening bilateral airspace disease in both lungs with a left lower lobe predominance. No pneumothorax. Small left effusion. Heart size and mediastinal contours are stable. Pulmonary vascularity is indistinct. Impression: Worsening left lower lobe pneumonia or aspiration with superimposed edema. There is a preliminary report by [facility] radi[facility]. .
[2017-12-26] MEDS: D5W IV SCH ×2 (11:48→21:38)
[2017-12-26] MEDS: VALPROATE IV SCH ×2 (11:48→21:38)
[2017-12-26] MEDS: LEVOFLOXACIN PB 750 MG/150 ML BAG IV SCH (13:01)
--- NOTE | 2017-12-26 15:23 | Progress Note ---
- Date 12/26/17 Subjective: Had high residuals with tube feed overnight and was found by RN coughing. No evidence of actual tube feed residuals in throat, more thick secretions. However , tube feeds are on hold again. He continues to have a productive cough with thick secretions that are difficult to clear. He is wheezing. He hasn't had a BM since admitted. Objective Vital signs: Temperature 98.6 F 12/26/17 08:00 Pulse Rate 77 12/26/17 09:05 Respiratory Rate 24 12/26/17 11:14 Blood Pressure 147/80 H 12/26/17 08:00 Pulse Oximetry 92 12/26/17 11:14 Height/Weight/BMI: Weight 89.1 kg - Constitutional Present: no acute distress - Routine Respiratory Exam Present: wheezes - Routine Cardiovascular Exam Present: RRR - Routine Abdominal Exam Present: soft, non tender, distended Comments: decreased BS - Routine Extremities Exam Present: no edema - Routine Skin Exam Present: intact, dry, warm - Routine Neurological Exam chronic left hemiparesis and aphasia Results - Labs CBC & Chem 7: 12/26/17 04:50 12/26/17 04:50 Assessment and Plan (1) Aspiration pneumonia Current visit: Yes Status: Acute Assessment and Plan: Assessment Severe sepsis - lactate 3.7; SIRS = leukocytosis, HR >90, fever Pneumonia vs aspiration pneumonia Hypoxia, room air sat 87% Reported emesis HLD HTN Vascular dementia CVA with residual L sided weakness, Dysphagia, Aphasia OA GERD Plan Sputum culture growing few GPC and GNR - continue levaquin and clinda Concern for aspiration on emesis - TF held at admission, re-attempted last night but stopped again due to high residuals. Got KUB that shows constipation - start bowel regimen. DuoNeb QID. O2 to maintain sats - weaned down to 3 liters oxygen today Add prednisone for wheezing and possible aspiration pneumonitis. Also has h/o smoking in the past. Continue metoprolol with hold parameters NS @ 100 mL/hr. - continue for now while tube feeds off DVT Prophylaxis: Lovenox - Physician Narrative Narrative: Date: 12/26/17 Time: 1520 Hospital Course Summary Disclaimer: The visit summary below is not to be considered part of the above Progress Note. Hospital Course: 12/24/17 Admit, inpatient, under the hospitalist service. Continue Levaquin daily and add clindamycin for suspected aspiration. DuoNeb QID. O2 to maintain sats. Repeat lactate to ensure downward trend. Hold off on tube feeds until emesis is under control. Resume necessary home meds via IV rather than PEG - metoprolol, Pepcid, depakote. (Metoprolol parameters: SBP >180, DBP >100 or HR >120) NS @ 100 mL/hr. Follow BC, sputum cx. AP & old records reviewed. Code status appears to have been changed to DNR since last admission. 12/25/17 Sepsis resolved today - WBC returned to normal, afebrile overnight Sputum culture growing few GPC and GNR - continue levaquin and clinda Concern for aspiration on emesis - TF held at admission, restart slowly today and monitor closely DuoNeb QID. O2 to maintain sats - currently needing 5 liters, wean down today Repeat lactate to ensure downward trend. Continue metoprolol with hold parameters NS @ 100 mL/hr. - continue for now. Code status appears to have been changed to DNR since last admission. 12/26/17 Sputum culture growing few GPC and GNR - continue levaquin and clinda Concern for aspiration on emesis - TF held at admission, re-attempted last night but stopped again due to high residuals. Got KUB that shows constipation - start bowel regimen. DuoNeb QID. O2 to maintain sats - weaned down to 3 liters oxygen today Add prednisone for wheezing and possible aspiration pneumonitis. Also has h/o smoking in the past. Continue metoprolol with hold parameters NS @ 100 mL/hr. - continue for now while tube feeds off
[2017-12-26] MEDS: LACTULOSE 20 GM/30 ML ORAL LIQUID PO PRN (16:57)
[2017-12-26] MEDS: METHYLPREDNISOLONE SOD SUCC 40mg/ml INJECTION IVP SCH (20:19)
[2017-12-27] MEDS: NS 1,000 ML IV SCH (02:03)
[2017-12-27] MEDS: CLINDAMYCIN PB 600 MG/50 ML BAG IV SCH ×3 (06:33→23:04)
[2017-12-27] MEDS ORDERED: LIDOCAINE 2% JELLY (Urojet) 20ml MM ONE (06:44)
[2017-12-27] MEDS: ALBUTEROL/IPRATROPIUM 2.5mg-0.5mg/3ml NEB AEROSOL SCH ×4 (07:00→19:58)
[2017-12-27] MEDS: BUDESONIDE INH.SOLN 0.5mg/2ml NEB AEROSOL SCH ×2 (07:01→19:58)
--- NOTE | 2017-12-27 07:47 | XRay Report ---
Indication: vomiting, high gastric residuals PROCEDURE: XR KUB: Encounter: Initial Comparison: October 07, 2017 Findings: Worsening aeration of the lungs with increased interstitial prominence and groundglass opacities. More focal consolidation in the left lower lobe with a small effusion. Bowel gas pattern is nonobstructive and nonspecific. No abnormally dilated small or large bowel loops appreciated. Moderate stool in the colon. Impression: Worsening appearance of the lungs. Nonobstructive bowel gas pattern. .
[2017-12-27] MEDS: D5W IV SCH ×2 (08:37→21:30)
[2017-12-27] MEDS: METHYLPREDNISOLONE SOD SUCC 40mg/ml INJECTION IVP SCH (08:37)
[2017-12-27] MEDS: VALPROATE IV SCH ×2 (08:37→21:30)
[2017-12-27] MEDS ORDERED: FUROSEMIDE 20 MG/2 ML INJECTION IVP ONE (08:47)
--- NOTE | 2017-12-27 09:47 | Progress Note ---
- Date 12/27/17 Subjective: Mr. Esteban had thick, cream-colored secretions on his lips. He had difficulty following commands to open his mouth. He denied having any pain. He denied feeling short of breath. Tube feeds have been on hold. He is maintaining sats on 3L of oxygen; his RN reports that he sounds "wet". Objective Vital signs: Temperature 98.9 F 12/27/17 07:22 Pulse Rate 105 H 12/27/17 07:22 Respiratory Rate 22 12/27/17 07:22 Blood Pressure 178/90 H 12/27/17 07:22 Pulse Oximetry 96 12/27/17 07:22 Height/Weight/BMI: Weight 89.9 kg - Constitutional Present: no acute distress, well nourished, well developed - Routine HEENT Exam Head: Present: normocephalic Eye: Absent: conjunctival icterus, scleral injection Comments: thick secretions on lips - Routine Respiratory Exam Present: wheezes - Routine Cardiovascular Exam Present: RRR, S1, S2 - Routine Abdominal Exam Present: soft, normoactive bowel sounds, non distended, non tender Comments: PEG tube - Routine Extremities Exam Present: no edema - Routine Musculoskeletal Exam Musculoskeletal: Present: contractures (left hand) - Routine Skin Exam Present: intact, dry, warm - Routine Neurological Exam Present: alert. Absent: oriented X3 - Routine Psychiatric Exam Present: normal affect Results - Labs CBC & Chem 7: 12/27/17 05:15 12/27/17 05:15 Assessment and Plan (1) Aspiration pneumonia Current visit: Yes Status: Acute Assessment and Plan: Assessment Severe sepsis - lactate 3.7; SIRS = leukocytosis, HR >90, fever Pneumonia vs aspiration pneumonia Hypoxia, room air sat 87% Reported emesis HLD HTN Vascular dementia CVA with residual L sided weakness, Dysphagia, Aphasia OA GERD Plan Sputum culture growing heavy GPC and moderate GNR - continue levaquin and clinda. New leukopenia noted. Tube feeds on hold d/t pt coughing up the feedings; however he is getting free water through his peg. Wheezing today; stop IVF and give Lasix 20 mg IV x1. Will check a CXR today - lung bases on KUB yesterday show worsening. Cont Solu-Medrol. Will discuss with attending. DVT Prophylaxis: SCD's GI Prophylaxis: Pepcid Resuscitation Status: Do Not Resuscitate - Time spent with patient Time with patient PN: 25 minutes - Physician Narrative Physician: Seymour Scott MD Narrative: Date: 12/27/17 Time: 1520 Have independently interviewed and examined pt. Chart reviewed. Case discussed with my ELECTRICAL LOGGING ENGINEER. Care plan developed with my supervision; agree with above. Resting in bed. Awakens to verbal stimuli. Will answer questions with yes/no answers. Does not some fullness to ab. Breathing short. Lungs: decreased bilaterally with scattered wheezes. Shallow breathing. CV: regular AB: soft slight distention. BS very decreased Plan: Continue with antibiotics for pulmonary coverage. Will give 3 doses of IV Reglan 5mg 6 hours apart to help bowel status-encourage nursing to work to decompress from below. Monitor volume status off IVF. Monitor lab. Hospital Course Summary Disclaimer: The visit summary below is not to be considered part of the above Progress Note. Hospital Course: 12/24/17 Admit, inpatient, under the hospitalist service. Continue Levaquin daily and add clindamycin for suspected aspiration. DuoNeb QID. O2 to maintain sats. Repeat lactate to ensure downward trend. Hold off on tube feeds until emesis is under control. Resume necessary home meds via IV rather than PEG - metoprolol, Pepcid, Depakote. (Metoprolol parameters: SBP >180, DBP >100 or HR >120) NS @ 100 mL/hr. Follow BC, sputum cx. AP & old records reviewed. Code status appears to have been changed to DNR since last admission. 12/25/17 Sepsis resolved today - WBC returned to normal, afebrile overnight. Sputum culture growing few GPC and GNR - continue Levaquin and clindamycin. Concern for aspiration on emesis - TF held at admission, restart slowly today and monitor closely. DuoNeb QID. O2 to maintain sats - currently needing 5 liters, wean down today. Repeat lactate to ensure downward trend. Continue metoprolol with hold parameters. NS @ 100 mL/hr. - continue for now. Code status appears to have been changed to DNR since last admission. 12/26/17 Sputum culture growing few GPC and GNR - continue Levaquin and clindamycin. Concern for aspiration on emesis - TF held at admission, re-attempted last night but stopped again due to high residuals. Got KUB that shows constipation - start bowel regimen. DuoNeb QID. O2 to maintain sats - weaned down to 3 liters oxygen today. Add prednisone for wheezing and possible aspiration pneumonitis. Also has h/o smoking in the past. Continue metoprolol with hold parameters. NS @ 100 mL/hr. - continue for now while tube feeds off. 12/27/17 Sputum culture growing heavy GPC and moderate GNR - continue Levaquin and clindamycin. New leukopenia noted. Tube feeds on hold d/t pt coughing up the feedings; however he is getting free water through his peg. Work on bowel decompression from below. Will give IV Reglan 5mg q 6 hours x3 doses. Wheezing today; stop IVF and give Lasix 20 mg IV x1. Will check a CXR today - lung bases on KUB yesterday show worsening. Cont Solu-Medrol.
[2017-12-27] MEDS: FAMOTIDINE PB 20 MG/50 ML BAG IV SCH ×2 (09:50→20:24)
[2017-12-27] MEDS ORDERED: FLEET PHOSPHO - SODA ENEMA 133ml PR PRN (10:29)
[2017-12-27] MEDS: LEVOFLOXACIN PB 750 MG/150 ML BAG IV SCH (11:45)
[2017-12-27] MEDS: METOCLOPRAMIDE 10mg/2ml INJECTION IVP SCH ×2 (15:24→21:29)
--- NOTE | 2017-12-27 18:45 | XRay Report ---
EXAM: XR chest 1V HISTORY: wheezing COMPARISON: Prior examination dated 12/26/2017. FINDINGS: A single portable AP view of the chest was performed. The lung valenzuela are hypoventilated. The heart remains mildly enlarged which may be artifactual secondary to the hypoventilated state. The trachea is midline. There is stable prominence of the central bronchovascular markings. There is again noted diffuse increased interstitial lung markings throughout the lung valenzuela with more dense airspace consolidation at the left lung base. There is slight improvement in the aeration at the left lung base as evidenced by improved visualization of the left hemidiaphragm. There is persistent blunting of left costophrenic angle. The right costophrenic angle remains clear. The bony thorax is stable. IMPRESSION: 1. Slight interval improvement in the left lung base infiltrate/atelectasis. A small left pleural effusion is suspected. There is no other significant interval change .
[2017-12-28] MEDS: METOCLOPRAMIDE 10mg/2ml INJECTION IVP SCH (02:40)
[2017-12-28] MEDS: CLINDAMYCIN PB 600 MG/50 ML BAG IV SCH ×2 (06:53→16:06)
[2017-12-28] MEDS: BUDESONIDE INH.SOLN 0.5mg/2ml NEB AEROSOL SCH ×2 (06:55→19:18)
[2017-12-28] MEDS: ALBUTEROL/IPRATROPIUM 2.5mg-0.5mg/3ml NEB AEROSOL SCH ×4 (06:55→19:18)
[2017-12-28] MEDS: METHYLPREDNISOLONE SOD SUCC 40mg/ml INJECTION IVP SCH (09:33)
[2017-12-28] MEDS: SALINE FLUSH 10ml SYRINGE IVF PRN (09:33)
[2017-12-28] MEDS: FAMOTIDINE PB 20 MG/50 ML BAG IV SCH ×2 (09:33→21:55)
[2017-12-28] MEDS: D5W IV SCH ×2 (10:23→23:02)
[2017-12-28] MEDS: VALPROATE IV SCH ×2 (10:23→23:02)
--- NOTE | 2017-12-28 10:27 | Progress Note ---
- Date 12/28/17 Subjective: Mr. Esteban had a restless night. He was yelling out and hallucinating throughout the night. He thought there was a cat and a dog in his room. When awake, he is occasionally aggressive and uncooperative. This morning he informed me that he was feeling "fine". He then started talking about "coming out of it" but was unable to provide additional detail or answer other questions. He had a small bowel movement yesterday. He is requiring 3 L of oxygen to maintain saturations. Objective Vital signs: Temperature 98.1 F 12/28/17 07:52 Pulse Rate 93 12/28/17 07:52 Respiratory Rate 20 12/28/17 07:52 Blood Pressure 129/67 12/28/17 07:52 Pulse Oximetry 91 12/28/17 07:52 Height/Weight/BMI: Height 1.7 m Weight 89 kg Body Mass Index 31.0 - Constitutional Present: no acute distress, well nourished, well developed - Routine HEENT Exam Head: Present: normocephalic ENT: Present: mucous membranes dry - Routine Respiratory Exam Present: decreased breath sounds, wheezes, crackles - Routine Cardiovascular Exam Present: RRR, S1, S2 - Routine Abdominal Exam Present: soft, normoactive bowel sounds, non distended, non tender Comments: PEG tube - Routine Extremities Exam Present: edema (bilateral pedal edema, trace) - Routine Musculoskeletal Exam Musculoskeletal: Present: contractures (left hand) - Routine Skin Exam Present: dry, warm - Routine Neurological Exam Present: alert. Absent: oriented X3, moving all extremities, normal speech - Routine Psychiatric Exam Present: unable to assess Results - Labs CBC & Chem 7: 12/28/17 09:22 12/28/17 09:22 Microbiology Results: Microbiology 12/24/17 12:24 Peripheral/Iv Start Blood Culture - Preliminary No Growth After 3 Days 12/24/17 12:26 Peripheral/Iv Start Blood Culture - Preliminary No Growth After 3 Days 12/24/17 12:34 Sputum, Suctioned Gram Stain - Final 12/24/17 12:34 Sputum, Suctioned Sputum Culture - Preliminary Streptococcus species Klebsiella pneumoniae Assessment and Plan (1) Aspiration pneumonia Current visit: Yes Status: Acute Assessment and Plan: Assessment Severe sepsis - lactate 3.7; SIRS = leukocytosis, HR >90, fever Pneumonia vs aspiration pneumonia Hypoxia, room air sat 87% Reported emesis Hypokalemia, not present on admission HLD HTN Vascular dementia CVA with residual L sided weakness, Dysphagia, Aphasia OA GERD Plan Sputum culture grew out Streptococcus species and Klebsiella pneumoniae. Will continue with Levaquin and clindamycin, day #5. Continue Solu-Medrol 40 mg daily - likely wean soon. K 3.3 - will replace IV. Check mg and phos in addition to BMP in am. Tube feeds still on hold: he normally gets Fibersource HN @ 125 mL/hr x 12 hours from 5p-5a: tonight will start at 30 ml/hr. Continue with free water. 150 mL Q4h per [facility] record - RN unsure on how much free water he's been getting over the last few days. D/W Dr. Scott and RN. DVT Prophylaxis: SCD's GI Prophylaxis: Pepcid Resuscitation Status: Do Not Resuscitate - Time spent with patient Time with patient PN: 25 minutes - Physician Narrative Physician: Seymour Scott MD Narrative: Date: 12/28/17 Time: 1607 Have independently interviewed and examined pt. Chart reviewed. Case discussed with my FENCE INSTALLER FOREMAN. Care plan developed with my supervision; agree with above. Resting peacefully in bed. Breathing shallow, unlabored. Upper airway noises present. No stool charted today. Lungs: decreased, shallow. Upper airway noises. Scatter wheeze/crackle CV: regular AB: soft nt/nd BS decreased Plan: continue antibiotic coverage. Will stop IVF and work on free water per PEG. Encourage nursing to give medications to promote bowel function. Hospital Course Summary Disclaimer: The visit summary below is not to be considered part of the above Progress Note. Hospital Course: 12/24/17 Admit, inpatient, under the hospitalist service. Continue Levaquin daily and add clindamycin for suspected aspiration. DuoNeb QID. O2 to maintain sats. Repeat lactate to ensure downward trend. Hold off on tube feeds until emesis is under control. Resume necessary home meds via IV rather than PEG - metoprolol, Pepcid, Depakote. (Metoprolol parameters: SBP >180, DBP >100 or HR >120) NS @ 100 mL/hr. Follow BC, sputum cx. AP & old records reviewed. Code status appears to have been changed to DNR since last admission. 12/25/17 Sepsis resolved today - WBC returned to normal, afebrile overnight. Sputum culture growing few GPC and GNR - continue Levaquin and clindamycin. Concern for aspiration on emesis - TF held at admission, restart slowly today and monitor closely. DuoNeb QID. O2 to maintain sats - currently needing 5 liters, wean down today. Repeat lactate to ensure downward trend. Continue metoprolol with hold parameters. NS @ 100 mL/hr. - continue for now. Code status appears to have been changed to DNR since last admission. 12/26/17 Sputum culture growing few GPC and GNR - continue Levaquin and clindamycin. Concern for aspiration on emesis - TF held at admission, re-attempted last night but stopped again due to high residuals. Got KUB that shows constipation - start bowel regimen. DuoNeb QID. O2 to maintain sats - weaned down to 3 liters oxygen today. Add prednisone for wheezing and possible aspiration pneumonitis. Also has h/o smoking in the past. Continue metoprolol with hold parameters. NS @ 100 mL/hr. - continue for now while tube feeds off. 12/27/17 Sputum culture growing heavy GPC and moderate GNR - continue Levaquin and clindamycin. New leukopenia noted. Tube feeds on hold d/t pt coughing up the feedings; however he is getting free water through his peg. Work on bowel decompression from below. Will give IV Reglan 5mg q 6 hours x3 doses. Wheezing today; stop IVF and give Lasix 20 mg IV x1. Will check a CXR today - lung bases on KUB yesterday show worsening. Cont Solu-Medrol. 12/28/17 Sputum culture grew out Streptococcus species and Klebsiella pneumoniae. Will continue with Levaquin and clindamycin, day #5. Continue Solu-Medrol 40 mg daily K 3.3 - will replace IV. Check mg and phos in addition to BMP in am. Tube feeds still on hold: he normally gets Fibersource HN @ 125 mL/hr x 12 hours from 5p-5a: tonight will start at 30 ml/hr. Continue with free water. 150 mL Q4h per [facility] record
[2017-12-28] MEDS: LEVOFLOXACIN PB 750 MG/150 ML BAG IV SCH (11:43)
[2017-12-28] MEDS: LIDOCAINE 1% INJ 10 MG, POTASSIUM CHLORIDE INJ 10 MEQ in NS 100 ML IV SCH ×2 (13:29→14:39)
[2017-12-28] MEDS ORDERED: ALBUTEROL 2.5mg/3ml (0.083%) NEB AEROSOL SCH (15:15)
[2017-12-28] MEDS: BISACODYL 10 MG SUPPOSITORY RECTALLY PRN (16:23)
[2017-12-28] MEDS: LACTULOSE 20 GM/30 ML ORAL LIQUID PO PRN (16:23)
[2017-12-28 18:13] VITALS: BMI 30.7
[2017-12-29] MEDS: CLINDAMYCIN PB 600 MG/50 ML BAG IV SCH ×4 (00:32→22:15)
[2017-12-29] MEDS: BUDESONIDE INH.SOLN 0.5mg/2ml NEB AEROSOL SCH ×2 (07:23→21:55)
[2017-12-29] MEDS: ALBUTEROL/IPRATROPIUM 2.5mg-0.5mg/3ml NEB AEROSOL SCH ×4 (07:23→21:55)
[2017-12-29] MEDS: SALINE FLUSH 10ml SYRINGE IVF PRN ×3 (07:26→20:55)
[2017-12-29] MEDS: FAMOTIDINE PB 20 MG/50 ML BAG IV SCH ×2 (08:28→20:09)
[2017-12-29] MEDS: METHYLPREDNISOLONE SOD SUCC 40mg/ml INJECTION IVP SCH (08:28)
[2017-12-29] MEDS: D5W IV SCH ×2 (09:31→20:54)
[2017-12-29] MEDS: VALPROATE IV SCH ×2 (09:31→20:54)
[2017-12-29] MEDS: LEVOFLOXACIN PB 750 MG/150 ML BAG IV SCH (11:44)
--- NOTE | 2017-12-29 15:45 | Progress Note ---
- Date 12/29/17 Subjective: Mr Esteban is seen today in follow up. He is alert and makes eye contact however is non verbal. He does actively cough several times and is noted to have some expiratory wheezing. Remains on 3 liters of oxygen. Nursing staff reports bladder scan at 1200 revels 200 ml. Pt is voiding however is incontinent. Objective Vital signs: Temperature 97.8 F 12/29/17 07:29 Pulse Rate 83 12/29/17 07:29 Respiratory Rate 16 12/29/17 14:36 Blood Pressure 152/81 H 12/29/17 07:29 Pulse Oximetry 95 12/29/17 14:36 Height/Weight/BMI: Height 1.7 m Weight 87.3 kg Body Mass Index 30.7 - Constitutional Present: no acute distress, well nourished, well developed - Routine HEENT Exam Eye: Present: EOMI ENT: Present: mucous membranes moist, dentition normal - Routine Respiratory Exam Present: wheezes - Routine Cardiovascular Exam Present: RRR, S1, S2. Absent: murmur - Routine Abdominal Exam Present: soft, normoactive bowel sounds, non distended. Absent: tenderness - Routine Extremities Exam Present: normal capillary refill - Routine Skin Exam Present: intact, dry, warm - Routine Neurological Exam Present: alert, CN II-XII intact - Routine Lymphatic Exam Lymphatic: Absent: adenopathy - Routine Psychiatric Exam Present: normal affect Results - Labs CBC & Chem 7: 12/28/17 09:22 12/29/17 05:37 Microbiology Results: Microbiology 12/24/17 12:24 Peripheral/Iv Start Blood Culture - Final No Growth After 5 Days 12/24/17 12:26 Peripheral/Iv Start Blood Culture - Final No Growth After 5 Days 12/24/17 12:34 Sputum, Suctioned Gram Stain - Final 12/24/17 12:34 Sputum, Suctioned Sputum Culture - Final Strep agalactiae - (Group B) Klebsiella pneumoniae Normal Respiratory Rosanne Assessment and Plan (1) Aspiration pneumonia Current visit: Yes Status: Acute Assessment and Plan: Assessment Severe sepsis - lactate 3.7; SIRS = leukocytosis, HR >90, fever Pneumonia vs aspiration pneumonia Hypoxia, room air sat 87% Reported emesis Hypokalemia, not present on admission HLD HTN 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 Will increase to 50 mL an hour, normal tube feeding is 125 ML/hr 12 hours from 5 pm-5am Continue with free water- 150 mL Q4h Sputum culture grew out Streptococcus species and Klebsiella pneumoniae. Remains on Levaquin and clindamycin, day #6. Working on weaning oxygen as able Continue with bladder scan Q6hr. Monitor electrolytes closely DVT Prophylaxis: SCD's Resuscitation Status: Do Not Resuscitate - Time spent with patient Time with patient PN: 25 minutes - Physician Narrative Physician: Seymour Scott MD Narrative: Date: 12/29/17 Time: 1851 Have independently interviewed and examined pt. Chart reviewed. Case discussed with my INSTRUMENTATION SPECIALIST. Care plan developed with my supervision; agree with above. Resting in bed. Breathing comfortably-on 3L to maintain saturations. Nursing did chart large bowel movement. Lungs: decreased, upper airway noises; no distress CV: regular AB: soft nt, BS decreased Plan: Continue with antibiotics for pulmonary coverage. Wean O2 as able. Working on bowel function. Gradually increase tube feeding. Hospital Course Summary Disclaimer: The visit summary below is not to be considered part of the above Progress Note. Hospital Course: 12/24/17 Admit, inpatient, under the hospitalist service. Continue Levaquin daily and add clindamycin for suspected aspiration. DuoNeb QID. O2 to maintain sats. Repeat lactate to ensure downward trend. Hold off on tube feeds until emesis is under control. Resume necessary home meds via IV rather than PEG - metoprolol, Pepcid, Depakote. (Metoprolol parameters: SBP >180, DBP >100 or HR >120) NS @ 100 mL/hr. Follow BC, sputum cx. AP & old records reviewed. Code status appears to have been changed to DNR since last admission. 12/25/17 Sepsis resolved today - WBC returned to normal, afebrile overnight. Sputum culture growing few GPC and GNR - continue Levaquin and clindamycin. Concern for aspiration on emesis - TF held at admission, restart slowly today and monitor closely. DuoNeb QID. O2 to maintain sats - currently needing 5 liters, wean down today. Repeat lactate to ensure downward trend. Continue metoprolol with hold parameters. NS @ 100 mL/hr. - continue for now. Code status appears to have been changed to DNR since last admission. 12/26/17 Sputum culture growing few GPC and GNR - continue Levaquin and clindamycin. Concern for aspiration on emesis - TF held at admission, re-attempted last night but stopped again due to high residuals. Got KUB that shows constipation - start bowel regimen. DuoNeb QID. O2 to maintain sats - weaned down to 3 liters oxygen today. Add prednisone for wheezing and possible aspiration pneumonitis. Also has h/o smoking in the past. Continue metoprolol with hold parameters. NS @ 100 mL/hr. - continue for now while tube feeds off. 12/27/17 Sputum culture growing heavy GPC and moderate GNR - continue Levaquin and clindamycin. New leukopenia noted. Tube feeds on hold d/t pt coughing up the feedings; however he is getting free water through his peg. Work on bowel decompression from below. Will give IV Reglan 5mg q 6 hours x3 doses. Wheezing today; stop IVF and give Lasix 20 mg IV x1. Will check a CXR today - lung bases on KUB yesterday show worsening. Cont Solu-Medrol. 12/28/17 Sputum culture grew out Streptococcus species and Klebsiella pneumoniae. Will continue with Levaquin and clindamycin, day #5. Continue Solu-Medrol 40 mg daily. K 3.3 - will replace IV. Check mg and phos in addition to BMP in am. Tube feeds still on hold: he normally gets Fibersource HN @ 125 mL/hr x 12 hours from 5p-5a: tonight will start at 30 ml/hr. Continue with free water. 150 mL Q4h per [facility] record 12/29/17 Tube feedings were tolerated well overnight. Will increase to 50 mL an hour, normal tube feeding is 125 ML/hr 12 hours from 5 pm-5am Continue with free water- 150 mL Q4h. Continue Levaquin and clindamycin, day #6. Working on weaning oxygen as able Continue with bladder scan Q6hr.
[2017-12-30] MEDS: CLINDAMYCIN PB 600 MG/50 ML BAG IV SCH ×3 (06:29→22:29)
[2017-12-30] MEDS: ALBUTEROL/IPRATROPIUM 2.5mg-0.5mg/3ml NEB AEROSOL SCH ×4 (06:51→20:21)
[2017-12-30] MEDS: BUDESONIDE INH.SOLN 0.5mg/2ml NEB AEROSOL SCH ×2 (06:53→20:21)
[2017-12-30] MEDS: FAMOTIDINE PB 20 MG/50 ML BAG IV SCH ×2 (08:40→20:07)
[2017-12-30] MEDS: METHYLPREDNISOLONE SOD SUCC 40mg/ml INJECTION IVP SCH (08:41)
[2017-12-30] MEDS: SALINE FLUSH 10ml SYRINGE IVF PRN (08:41)
[2017-12-30] MEDS: D5W IV SCH ×2 (09:24→20:58)
[2017-12-30] MEDS: VALPROATE IV SCH ×2 (09:24→20:58)
[2017-12-30] MEDS: LEVOFLOXACIN PB 750 MG/150 ML BAG IV SCH (11:46)
--- NOTE | 2017-12-30 15:17 | Progress Note ---
- Date 12/30/17 Subjective: Mr Esteban is seen today in follow up. He is more alert and verbal than yesterday. He complains of have abdominal pain and is noted to be distended. Nursing staff reports that he is tolerating tube feedings overnight and RN had no residual. Objective Vital signs: Temperature 97.9 F 12/30/17 07:33 Pulse Rate 88 12/30/17 07:33 Respiratory Rate 16 12/30/17 10:28 Blood Pressure 153/92 H 12/30/17 07:33 Pulse Oximetry 93 12/30/17 10:28 Height/Weight/BMI: Height 1.7 m Weight 89.2 kg Body Mass Index 30.7 - Constitutional Present: no acute distress, well nourished, well developed - Routine HEENT Exam Eye: Present: EOMI ENT: Present: mucous membranes moist, dentition normal - Routine Respiratory Exam Present: CTA bilaterally. Absent: wheezes - Routine Cardiovascular Exam Present: RRR, S1, S2. Absent: murmur - Routine Abdominal Exam Present: soft, tenderness, distended. Absent: normoactive bowel sounds - Routine Extremities Exam Present: normal capillary refill - Routine Skin Exam Present: intact, dry, warm - Routine Neurological Exam Present: alert, oriented X3, CN II-XII intact - Routine Lymphatic Exam Lymphatic: Absent: adenopathy - Routine Psychiatric Exam Present: normal affect, cooperative Results - Labs CBC & Chem 7: 12/30/17 04:36 12/30/17 04:36 Microbiology Results: Microbiology 12/24/17 12:24 Peripheral/Iv Start Blood Culture - Final No Growth After 5 Days 12/24/17 12:26 Peripheral/Iv Start Blood Culture - Final No Growth After 5 Days 12/24/17 12:34 Sputum, Suctioned Gram Stain - Final 12/24/17 12:34 Sputum, Suctioned Sputum Culture - Final Strep agalactiae - (Group B) Klebsiella pneumoniae Normal Respiratory Rosanne Assessment and Plan (1) Aspiration pneumonia Current visit: Yes Status: Acute Assessment and Plan: Assessment Severe sepsis - lactate 3.7; SIRS = leukocytosis, HR >90, fever Pneumonia vs aspiration pneumonia Hypoxia, room air sat 87% Reported emesis Hypokalemia, not present on admission HLD HTN 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 Once that is evaluated will have nursing staff given Dulocolax suppository Hopefully can increase Tube feedings at that time Continue with free water- 150 mL Q4h Sputum culture grew out Streptococcus species and Klebsiella pneumoniae. Remains on Levaquin and clindamycin, day #6. Working on weaning oxygen as able Tyler [id number] with nonspecific changes. Encourage nursing to use Dulcolax to help stool output. Will try increasing TF to 75cc/hr. DVT Prophylaxis: SCD's GI Prophylaxis: Pepcid Resuscitation Status: Do Not Resuscitate - Time spent with patient Time with patient PN: 25 minutes - Physician Narrative Physician: Seymour Scott MD Narrative: Date: 12/30/17 Time: 1714 Have independently interviewed and examined pt. Chart reviewed. Case discussed with my IT RISK ANALYST. Care plan developed with my supervision; agree with above. Resting in bed. Will open eyes. Not engaging in conversation. Lungs: decreased, coarse upper airway noises CV: regular AB: soft nt BS decreased Plan: Will continue antibiotics. KUB with nonspecific changes. Encourage nursing to use Dulcolax to help stool output. Will try increasing TF to 75cc/ hr. Monitor lab. Hospital Course Summary Disclaimer: The visit summary below is not to be considered part of the above Progress Note. Hospital Course: 12/24/17 Admit, inpatient, under the hospitalist service. Continue Levaquin daily and add clindamycin for suspected aspiration. DuoNeb QID. O2 to maintain sats. Repeat lactate to ensure downward trend. Hold off on tube feeds until emesis is under control. Resume necessary home meds via IV rather than PEG - metoprolol, Pepcid, Depakote. (Metoprolol parameters: SBP >180, DBP >100 or HR >120) NS @ 100 mL/hr. Follow BC, sputum cx. AP & old records reviewed. Code status appears to have been changed to DNR since last admission. 12/25/17 Sepsis resolved today - WBC returned to normal, afebrile overnight. Sputum culture growing few GPC and GNR - continue Levaquin and clindamycin. Concern for aspiration on emesis - TF held at admission, restart slowly today and monitor closely. DuoNeb QID. O2 to maintain sats - currently needing 5 liters, wean down today. Repeat lactate to ensure downward trend. Continue metoprolol with hold parameters. NS @ 100 mL/hr. - continue for now. Code status appears to have been changed to DNR since last admission. 12/26/17 Sputum culture growing few GPC and GNR - continue Levaquin and clindamycin. Concern for aspiration on emesis - TF held at admission, re-attempted last night but stopped again due to high residuals. Got KUB that shows constipation - start bowel regimen. DuoNeb QID. O2 to maintain sats - weaned down to 3 liters oxygen today. Add prednisone for wheezing and possible aspiration pneumonitis. Also has h/o smoking in the past. Continue metoprolol with hold parameters. NS @ 100 mL/hr. - continue for now while tube feeds off. 12/27/17 Sputum culture growing heavy GPC and moderate GNR - continue Levaquin and clindamycin. New leukopenia noted. Tube feeds on hold d/t pt coughing up the feedings; however he is getting free water through his peg. Work on bowel decompression from below. Will give IV Reglan 5mg q 6 hours x3 doses. Wheezing today; stop IVF and give Lasix 20 mg IV x1. Will check a CXR today - lung bases on KUB yesterday show worsening. Cont Solu-Medrol. 12/28/17 Sputum culture grew out Streptococcus species and Klebsiella pneumoniae. Will continue with Levaquin and clindamycin, day #5. Continue Solu-Medrol 40 mg daily. K 3.3 - will replace IV. Check mg and phos in addition to BMP in am. Tube feeds still on hold: he normally gets Fibersource HN @ 125 mL/hr x 12 hours from 5p-5a: tonight will start at 30 ml/hr. Continue with free water. 150 mL Q4h per [facility] record 12/29/17 Tube feedings were tolerated well overnight. Will increase to 50 mL an hour, normal tube feeding is 125 ML/hr 12 hours from 5 pm-5am Continue with free water- 150 mL Q4h. Continue Levaquin and clindamycin, day #6. Working on weaning oxygen as able Continue with bladder scan Q6hr. 12/30/17 Will obtain KUB with upright X-ray given distension. Once that is evaluated will have nursing staff given Dulcolax suppository KUB with nonspecific changes. Will try increasing TF to 75cc/hr. Continue with free water- 150 mL Q4h Remains on Levaquin and clindamycin, day #7. Working on weaning oxygen as able
--- NOTE | 2017-12-30 15:54 | XRay Report ---
Indication: abd pain PROCEDURE: XR KUB w upright: Encounter: Initial Comparison: December 26, 2017 Findings: Persistent left lower lobe airspace disease. There is no free air on the upright view. The bowel gas pattern is nonobstructive and nonspecific. Gas is seen in nondilated small and large bowel to the level of the rectum. Gastrostomy tube noted. Impression: Nonobstructive nonspecific bowel gas pattern. .
[2017-12-30] MEDS: BISACODYL 10 MG SUPPOSITORY RECTALLY PRN (18:21)
[2017-12-31] MEDS: SALINE FLUSH 10ml SYRINGE IVF PRN ×2 (06:08→20:33)
[2017-12-31] MEDS: CLINDAMYCIN PB 600 MG/50 ML BAG IV SCH ×3 (06:11→22:52)
[2017-12-31] MEDS: BUDESONIDE INH.SOLN 0.5mg/2ml NEB AEROSOL SCH ×2 (08:15→20:00)
[2017-12-31] MEDS: ALBUTEROL/IPRATROPIUM 2.5mg-0.5mg/3ml NEB AEROSOL SCH ×4 (08:15→20:00)
--- NOTE | 2017-12-31 08:28 | XRay Report ---
Indication: F/U PROCEDURE: XR chest 1V: Encounter: Initial Comparison: December 27, 2017 Findings: Interval decrease in edema with improving aeration of the lungs. No new or worsening airspace disease. Persistent mild left lower lobe infiltrate and small effusion. No pneumothorax. Heart size and mediastinal contours are stable. Impression: Improving appearance of the chest. .
[2017-12-31] MEDS: METHYLPREDNISOLONE SOD SUCC 40mg/ml INJECTION IVP SCH (09:12)
[2017-12-31] MEDS: FAMOTIDINE PB 20 MG/50 ML BAG IV SCH ×2 (09:12→20:32)
[2017-12-31] MEDS: ASPIRIN 325 MG TABLET GT SCH (09:46)
[2017-12-31] MEDS: ESCITALOPRAM 20 MG TABLET GT SCH (09:47)
[2017-12-31] MEDS: VALPROATE IV SCH ×2 (09:49→21:23)
[2017-12-31] MEDS: D5W IV SCH ×2 (09:49→21:23)
--- NOTE | 2017-12-31 11:42 | Progress Note ---
- Date 12/31/17 Subjective: Mr Esteban is seen today while resting in bed. He is initially sleeping however does arouse during examination. He denies having pain, nausea or abdominal pain. Tolerated increased tube feeding yesterday. Noted to have some wheezing on auscultation. Weight unchanged. Bowels did move yesterday evening. Objective Vital signs: Temperature 98.0 F 12/31/17 07:39 Pulse Rate 89 12/31/17 09:58 Respiratory Rate 22 12/31/17 08:15 Blood Pressure 160/98 H 12/31/17 09:58 Pulse Oximetry 92 12/31/17 11:12 Height/Weight/BMI: Height 1.7 m Weight 89.2 kg Body Mass Index 30.7 - Constitutional Present: no acute distress, well nourished, well developed - Routine HEENT Exam Eye: Present: EOMI ENT: Present: mucous membranes moist, dentition normal - Routine Respiratory Exam Present: wheezes - Routine Cardiovascular Exam Present: RRR, S1, S2. Absent: murmur - Routine Abdominal Exam Present: soft, normoactive bowel sounds, non distended. Absent: tenderness - Routine Skin Exam Present: intact, dry, warm - Routine Neurological Exam Present: alert, oriented X3, CN II-XII intact - Routine Lymphatic Exam Lymphatic: Absent: adenopathy - Routine Psychiatric Exam Present: normal affect, cooperative Results - Labs CBC & Chem 7: 12/31/17 07:34 12/31/17 07:34 Microbiology Results: Microbiology 12/24/17 12:24 Peripheral/Iv Start Blood Culture - Final No Growth After 5 Days 12/24/17 12:26 Peripheral/Iv Start Blood Culture - Final No Growth After 5 Days 12/24/17 12:34 Sputum, Suctioned Gram Stain - Final 12/24/17 12:34 Sputum, Suctioned Sputum Culture - Final Strep agalactiae - (Group B) Klebsiella pneumoniae Normal Respiratory Rosanne Assessment and Plan (1) Aspiration pneumonia Current visit: Yes Status: Acute Assessment and Plan: Assessment Severe sepsis - lactate 3.7; SIRS = leukocytosis, HR >90, fever Pneumonia vs aspiration pneumonia Hypoxia, room air sat 87% Reported emesis Hypokalemia, not present on admission HLD HTN 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 Continue with free water- 150 mL Q4h. Continues to require oxygen, weaned down to 1 liter. Use DuoNeb scheduled. Continue with bowel motivation. Abdomen is less firm today. Bowels moved yesterday. Sputum culture grew out Streptococcus species and Klebsiella pneumoniae. Remains on Levaquin and clindamycin, day #8. Labs remain stable. Will return to [place] at discharge time. DVT Prophylaxis: SCD's Resuscitation Status: Do Not Resuscitate - Time spent with patient Time with patient PN: 25 minutes - Physician Narrative Physician: Seymour Scott MD Narrative: Date: 12/31/17 Time: 1521 Have independently interviewed and examined pt. Chart reviewed. Case discussed with my YOUTH ASSOCIATE. Care plan developed with my supervision; agree with above. Resting in bed, awakens easily. Little verbal interaction. CXR showing improvement. Nursing able to decrease O2 to 1L. Tolerating increased rate of tube feeding. Lungs: decreased, upper airway noises CV: regular AB: soft nt BS decreased Plan: Continue with antibiotics. Continue to increase TF as able-encourage nursing on bowel stimulation. Wean O2 as able. Slow gains. Hospital Course Summary Disclaimer: The visit summary below is not to be considered part of the above Progress Note. Hospital Course: 12/24/17 Admit, inpatient, under the hospitalist service. Continue Levaquin daily and add clindamycin for suspected aspiration. DuoNeb QID. O2 to maintain sats. Repeat lactate to ensure downward trend. Hold off on tube feeds until emesis is under control. Resume necessary home meds via IV rather than PEG - metoprolol, Pepcid, Depakote. (Metoprolol parameters: SBP >180, DBP >100 or HR >120) NS @ 100 mL/hr. Follow BC, sputum cx. AP & old records reviewed. Code status appears to have been changed to DNR since last admission. 12/25/17 Sepsis resolved today - WBC returned to normal, afebrile overnight. Sputum culture growing few GPC and GNR - continue Levaquin and clindamycin. Concern for aspiration on emesis - TF held at admission, restart slowly today and monitor closely. DuoNeb QID. O2 to maintain sats - currently needing 5 liters, wean down today. Repeat lactate to ensure downward trend. Continue metoprolol with hold parameters. NS @ 100 mL/hr. - continue for now. Code status appears to have been changed to DNR since last admission. 12/26/17 Sputum culture growing few GPC and GNR - continue Levaquin and clindamycin. Concern for aspiration on emesis - TF held at admission, re-attempted last night but stopped again due to high residuals. Got KUB that shows constipation - start bowel regimen. DuoNeb QID. O2 to maintain sats - weaned down to 3 liters oxygen today. Add prednisone for wheezing and possible aspiration pneumonitis. Also has h/o smoking in the past. Continue metoprolol with hold parameters. NS @ 100 mL/hr. - continue for now while tube feeds off. 12/27/17 Sputum culture growing heavy GPC and moderate GNR - continue Levaquin and clindamycin. New leukopenia noted. Tube feeds on hold d/t pt coughing up the feedings; however he is getting free water through his peg. Work on bowel decompression from below. Will give IV Reglan 5mg q 6 hours x3 doses. Wheezing today; stop IVF and give Lasix 20 mg IV x1. Will check a CXR today - lung bases on KUB yesterday show worsening. Cont Solu-Medrol. 12/28/17 Sputum culture grew out Streptococcus species and Klebsiella pneumoniae. Will continue with Levaquin and clindamycin, day #5. Continue Solu-Medrol 40 mg daily. K 3.3 - will replace IV. Check mg and phos in addition to BMP in am. Tube feeds still on hold: he normally gets Fibersource HN @ 125 mL/hr x 12 hours from 5p-5a: tonight will start at 30 ml/hr. Continue with free water. 150 mL Q4h per [facility] record 12/29/17 Tube feedings were tolerated well overnight. Will increase to 50 mL an hour, normal tube feeding is 125 ML/hr 12 hours from 5 pm-5am Continue with free water- 150 mL Q4h. Continue Levaquin and clindamycin, day #6. Working on weaning oxygen as able Continue with bladder scan Q6hr. 12/30/17 Will obtain KUB with upright X-ray given distension. Once that is evaluated will have nursing staff given Dulcolax suppository. KUB with nonspecific changes. Will try increasing TF to 75cc/hr. Continue with free water- 150 mL Q4h Remains on Levaquin and clindamycin, day #7. Working on weaning oxygen as able. 12/31/17 Increase tube feeding to 100 ML/HR (goal 125 ML/HR) x 12 hours from 5p-5. Continue with free water- 150 mL Q4h. Continues to require oxygen, weaned down to 1 liter. Use DuoNeb scheduled. Continue with bowel motivation. Abdomen is less firm today. Bowels moved yesterday. Sputum culture grew out Streptococcus species and Klebsiella pneumoniae. Remains on Levaquin and clindamycin, day #8. Labs remain stable. Will return to [place] at discharge time.
[2017-12-31] MEDS: LEVOFLOXACIN PB 750 MG/150 ML BAG IV SCH (12:17)
[2018-01-01] MEDS: CLINDAMYCIN PB 600 MG/50 ML BAG IV SCH ×2 (08:45→15:01)
[2018-01-01] MEDS: ALBUTEROL/IPRATROPIUM 2.5mg-0.5mg/3ml NEB AEROSOL PRN (09:12)
[2018-01-01] MEDS: BUDESONIDE INH.SOLN 0.5mg/2ml NEB AEROSOL SCH ×2 (09:12→19:32)
[2018-01-01] MEDS: ALBUTEROL/IPRATROPIUM 2.5mg-0.5mg/3ml NEB AEROSOL SCH ×4 (09:12→19:32)
[2018-01-01] MEDS: SALINE FLUSH 10ml SYRINGE IVF PRN (09:32)
[2018-01-01] MEDS: FAMOTIDINE PB 20 MG/50 ML BAG IV SCH ×2 (09:32→22:31)
[2018-01-01] MEDS: ESCITALOPRAM 20 MG TABLET GT SCH (09:32)
[2018-01-01] MEDS: ASPIRIN 325 MG TABLET GT SCH (09:32)
[2018-01-01] MEDS: METHYLPREDNISOLONE SOD SUCC 40mg/ml INJECTION IVP SCH (09:32)
[2018-01-01] MEDS: D5W IV SCH ×2 (10:28→23:23)
[2018-01-01] MEDS: VALPROATE IV SCH ×2 (10:28→23:23)
--- NOTE | 2018-01-01 10:46 | Progress Note ---
- Date 01/01/18 Subjective: Mr Esteban seen this morning in follow-up. He is resting comfortably in bed. Nursing is at the bedside and reports they've been able to wean down oxygen. Currently on room air with sats of 90%. He is noted to have expiratory wheezing bilaterally, anterior, some of which appears to be more upper airway noise. Overall, he continues to be more alert and answers easy questions appropriately. He denies having any pain. Abdomen is soft, feeding tube intact. Noted BP mildly elevated this morning at 161/99. Objective Vital signs: Temperature 98.3 F 01/01/18 08:00 Pulse Rate 93 01/01/18 08:00 Respiratory Rate 20 01/01/18 09:12 Blood Pressure 161/99 H 01/01/18 08:00 Pulse Oximetry 90 01/01/18 09:12 Height/Weight/BMI: Height 1.7 m Weight 86.8 kg Body Mass Index 30.7 - Constitutional Present: no acute distress, well nourished, well developed - Routine HEENT Exam Eye: Present: EOMI ENT: Present: mucous membranes moist, dentition normal - Routine Respiratory Exam Present: wheezes (expiratory) - Routine Cardiovascular Exam Present: RRR, S1, S2. Absent: murmur - Routine Abdominal Exam Present: soft, normoactive bowel sounds, non distended. Absent: tenderness - Routine Extremities Exam Present: no edema - Routine Skin Exam Present: intact, dry, warm - Routine Neurological Exam Present: alert, CN II-XII intact, moving all extremities - Routine Lymphatic Exam Lymphatic: Absent: adenopathy - Routine Psychiatric Exam Present: cooperative Results - Labs CBC & Chem 7: 01/01/18 04:17 01/01/18 04:17 Microbiology Results: Microbiology 12/24/17 12:24 Peripheral/Iv Start Blood Culture - Final No Growth After 5 Days 12/24/17 12:26 Peripheral/Iv Start Blood Culture - Final No Growth After 5 Days 12/24/17 12:34 Sputum, Suctioned Gram Stain - Final 12/24/17 12:34 Sputum, Suctioned Sputum Culture - Final Strep agalactiae - (Group B) Klebsiella pneumoniae Normal Respiratory Rosanne Assessment and Plan Assessment and Plan: Assessment Severe sepsis - lactate 3.7; SIRS = leukocytosis, HR >90, fever Pneumonia vs aspiration pneumonia Hypoxia, room air sat 87% Reported emesis Hypokalemia, not present on admission HLD HTN 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 (This is his home rate ) Continue with free water- 150 mL Q4h. Continues to work on weaning oxygen. Scheduled Nebs Continue with bowel motivation. Sputum culture grew out Streptococcus species and Klebsiella pneumoniae. Remains on Levaquin and clindamycin, day #9. Will return to [place] at discharge time. 01/01/2018= 7:30 PM-I examined the patient independently. I reviewed this chart , the patient history, and the WEALTH MANAGEMENT CONSULTANT's/PA's documented findings as above. We discussed and formulated the assessment and plan as above with the additions below.-Dr. Justice The patient was seen this evening accompanied by his nurse. She stated he is tolerating the tube feedings from 5 PM to 5 AM at 125 ML's per hour with no significant residual. He has not had any vomiting. He is on 1 L per nasal cannula. He is urinating well. He has had a couple of bowel movements today. On my exam he just says "take it off, take it off" and points to the IV in his hand. There is no erythema or edema. It is difficult to get him to answer any other questions. He may have some mild abdominal discomfort, but this is difficult to tell because he is more perseverating on his IV. On exam he is alert. Chest reveals upper airway mild rhonchi. Cardiovascular reveals a regular rate and rhythm. Abdomen is soft, mildly distended, with hypoactive bowel sounds. Extremities are free of edema. Lab today was significant for potassium of 3.4. Impression and plan Continue Levaquin and Clinda for pneumonia versus aspiration-currently on day 9 Check KUB and chest x-ray tomorrow morning regarding questionable abdominal discomfort and mild hypoxia Replace potassium 40 mEq per PEG 1 Recheck basic metabolic profile tomorrow We'll need to find out the patient's usual tube feeding regimen from his long-term - Physician Narrative Narrative: Date: 01/01/18 Time: 1043 Hospital Course Summary Disclaimer: The visit summary below is not to be considered part of the above Progress Note. Hospital Course: 12/24/17 Admit, inpatient, under the hospitalist service. Continue Levaquin daily and add clindamycin for suspected aspiration. DuoNeb QID. O2 to maintain sats. Repeat lactate to ensure downward trend. Hold off on tube feeds until emesis is under control. Resume necessary home meds via IV rather than PEG - metoprolol, Pepcid, Depakote. (Metoprolol parameters: SBP >180, DBP >100 or HR >120) NS @ 100 mL/hr. Follow BC, sputum cx. [facility] & old records reviewed. Code status appears to have been changed to DNR since last admission. 12/25/17 Sepsis resolved today - WBC returned to normal, afebrile overnight. Sputum culture growing few GPC and GNR - continue Levaquin and clindamycin. Concern for aspiration on emesis - TF held at admission, restart slowly today and monitor closely. DuoNeb QID. O2 to maintain sats - currently needing 5 liters, wean down today. Repeat lactate to ensure downward trend. Continue metoprolol with hold parameters. NS @ 100 mL/hr. - continue for now. Code status appears to have been changed to DNR since last admission. 12/26/17 Sputum culture growing few GPC and GNR - continue Levaquin and clindamycin. Concern for aspiration on emesis - TF held at admission, re-attempted last night but stopped again due to high residuals. Got KUB that shows constipation - start bowel regimen. DuoNeb QID. O2 to maintain sats - weaned down to 3 liters oxygen today. Add prednisone for wheezing and possible aspiration pneumonitis. Also has h/o smoking in the past. Continue metoprolol with hold parameters. NS @ 100 mL/hr. - continue for now while tube feeds off. 12/27/17 Sputum culture growing heavy GPC and moderate GNR - continue Levaquin and clindamycin. New leukopenia noted. Tube feeds on hold d/t pt coughing up the feedings; however he is getting free water through his peg. Work on bowel decompression from below. Will give IV Reglan 5mg q 6 hours x3 doses. Wheezing today; stop IVF and give Lasix 20 mg IV x1. Will check a CXR today - lung bases on KUB yesterday show worsening. Cont Solu-Medrol. 12/28/17 Sputum culture grew out Streptococcus species and Klebsiella pneumoniae. Will continue with Levaquin and clindamycin, day #5. Continue Solu-Medrol 40 mg daily. K 3.3 - will replace IV. Check mg and phos in addition to BMP in am. Tube feeds still on hold: he normally gets Fibersource HN @ 125 mL/hr x 12 hours from 5p-5a: tonight will start at 30 ml/hr. Continue with free water. 150 mL Q4h per [facility] record 12/29/17 Tube feedings were tolerated well overnight. Will increase to 50 mL an hour, normal tube feeding is 125 ML/hr 12 hours from 5 pm-5am Continue with free water- 150 mL Q4h. Continue Levaquin and clindamycin, day #6. Working on weaning oxygen as able Continue with bladder scan Q6hr. 12/30/17 Will obtain KUB with upright X-ray given distension. Once that is evaluated will have nursing staff given Dulcolax suppository. KUB with nonspecific changes. Will try increasing TF to 75cc/hr. Continue with free water- 150 mL Q4h Remains on Levaquin and clindamycin, day #7. Working on weaning oxygen as able. 12/31/17 Increase tube feeding to 100 ML/HR (goal 125 ML/HR) x 12 hours from 5p-5. Continue with free water- 150 mL Q4h. Continues to require oxygen, weaned down to 1 liter. Use DuoNeb scheduled. Continue with bowel motivation. Abdomen is less firm today. Bowels moved yesterday. Sputum culture grew out Streptococcus species and Klebsiella pneumoniae. Remains on Levaquin and clindamycin, day #8. Labs remain stable. Will return to [place] at discharge time. 01/01/18- Increase tube feeding to 125 ML/HR x 12 hours from 5p-5. (This is his home rate). Weaning down on oxygen
[2018-01-01] MEDS: LEVOFLOXACIN PB 750 MG/150 ML BAG IV SCH (12:08)
[2018-01-01] MEDS ORDERED: POTASSIUM CHLORIDE 20 MEQ/15 ML ORAL LIQUID PO ONE (19:19)
[2018-01-02] MEDS: CLINDAMYCIN PB 600 MG/50 ML BAG IV SCH ×2 (00:42→06:33)
[2018-01-02] MEDS: ALBUTEROL/IPRATROPIUM 2.5mg-0.5mg/3ml NEB AEROSOL SCH ×4 (06:50→19:48)
[2018-01-02] MEDS: BUDESONIDE INH.SOLN 0.5mg/2ml NEB AEROSOL SCH ×2 (06:50→19:48)
[2018-01-02] MEDS: SALINE FLUSH 10ml SYRINGE IVF PRN ×2 (07:28→11:05)
[2018-01-02] MEDS ORDERED: REFRESH CLASSIC Eye Drops 0.4ml EACH EYE PRN (10:18)
--- NOTE | 2018-01-02 10:23 | XRay Report ---
Indication: hypoxia, mild abd pain PROCEDURE: XR KUB w upright: Encounter: Initial Comparison: December 30, 2017 Findings: Left lower lobe airspace disease persists. No gross free air on the same upright view. Gastrostomy tube noted. Nonobstructive and nonspecific bowel gas pattern with gas throughout small and large bowel to the level of the rectum. Moderate to large amount stool in the right colon. Bony structures are unchanged. Impression: Nonobstructive bowel gas pattern. Mild ileus. .
[2018-01-02] MEDS: FAMOTIDINE PB 20 MG/50 ML BAG IV SCH ×2 (10:49→23:09)
[2018-01-02] MEDS: ASPIRIN 325 MG TABLET GT SCH (10:50)
[2018-01-02] MEDS: ESCITALOPRAM 20 MG TABLET GT SCH (10:50)
[2018-01-02] MEDS: METHYLPREDNISOLONE SOD SUCC 40mg/ml INJECTION IVP SCH (11:03)
[2018-01-02] MEDS: VALPROATE IV SCH (11:50)
[2018-01-02] MEDS: D5W IV SCH (11:50)
--- NOTE | 2018-01-02 12:11 | Progress Note ---
- Date 01/02/18 Subjective: Mr. Esteban stated that he is feeling "fine" but as the RN administered free water into his g-tube he repeated "Ow" several times. It initially was blocked but soon it flowed in via gravity. He was breathing comfortably on room air. He hasn 't been vomiting or coughing up anything but RN reports he was c/o nausea earlier. He has been tolerating the tube feedings well. He's been having regular bowel movements. His weight has been relatively stable. Objective Vital signs: Temperature 99.3 F 01/02/18 07:36 Pulse Rate 80 01/02/18 07:36 Respiratory Rate 16 01/02/18 10:42 Blood Pressure 135/76 01/02/18 07:36 Pulse Oximetry 90 01/02/18 10:42 Height/Weight/BMI: Height 1.7 m Weight 88 kg Body Mass Index 30.7 - Constitutional Present: no acute distress, well nourished, well developed - Routine HEENT Exam Head: Present: normocephalic ENT: Present: mucous membranes moist - Routine Respiratory Exam Present: decreased breath sounds, rhonchi, wheezes - Routine Cardiovascular Exam Present: RRR, S1, S2 - Routine Abdominal Exam Present: soft, normoactive bowel sounds, non distended, non tender Comments: PEG tube - Routine Extremities Exam Present: no edema Comments: foam protectors B/L feet - Routine Skin Exam Present: intact, dry, warm - Routine Neurological Exam Present: alert - Routine Psychiatric Exam Present: cooperative Results - Labs CBC & Chem 7: 01/01/18 04:17 01/02/18 04:20 Microbiology Results: Microbiology 12/24/17 12:24 Peripheral/Iv Start Blood Culture - Final No Growth After 5 Days 12/24/17 12:26 Peripheral/Iv Start Blood Culture - Final No Growth After 5 Days 12/24/17 12:34 Sputum, Suctioned Gram Stain - Final 12/24/17 12:34 Sputum, Suctioned Sputum Culture - Final Strep agalactiae - (Group B) Klebsiella pneumoniae Normal Respiratory Rosanne Assessment and Plan Assessment and Plan: Assessment Severe sepsis - lactate 3.7; SIRS = leukocytosis, HR >90, fever Pneumonia vs aspiration pneumonia - klebsiella and GBS on sputum cx Hypoxia, room air sat 87% Reported emesis Hypokalemia, not present on admission HLD HTN Vascular dementia CVA with residual L sided weakness, Dysphagia, Aphasia OA GERD Plan KUB personally reviewed - mod-large amount of stool in right colon; persistent LLL pneumonia. Start Dulcolax suppositories QID. De-escalating abx; today is day #10 of clinda and levaquin; klebsiella in sputum is sensitive to levaquin. DC Clinda. On room air this am. Stop IV steroids and start Prednisone 20 mg GT tomorrow am. Continue home feeding schedule, which is listed in his mar on his physical chart. (125 ml/hr from 5p-5a, free water 150 mL Q4h) K improved to 4.4 with KDur yesterday. D/W RN and Dr. Justice. 01/02/2018-4:40 PM-I examined the patient independently. I reviewed this chart, the patient history, and the BRAND [employer]NER's/PA's documented findings as above. We discussed and formulated the assessment and plan as above with the additions below.-Dr. Justice Patient was seen this afternoon in his room. He is tolerating his tube feeds fairly well. He denies any nausea. He does complain of some abdominal pain. KUB was obtained which did show constipation and possible ileus. He states he has had some bowel movements after receiving a suppository. He denies any shortness of breath. He does complain of left leg pain. Exam he is alert and in no acute distress. Chest reveals some mild coarse breath sounds bilaterally. Cardiovascular reveals a regular rate and rhythm. Abdomen is soft and mildly distended. Bowel sounds are present. He has some mild tenderness. Extremities are free of edema. Heel protectors are on. SCDs are on. Review the KUB and agree with report of nonobstructive bowel gas pattern with constipation and possible mild ileus, concern for possible impaction. Last the nurse to check for impaction manually Impression and plan Re: Pneumonia versus aspiration-the patient has received 10 days of clindamycin and Levaquin. We'll discontinue both at this time. Regarding constipation-we'll ask the nurse to check for impaction manually, continue Dulcolax suppositories. Continue to monitor to make sure the patient is tolerating tube feedings. Possible discharge back to group home soon. DVT Prophylaxis: SCD's GI Prophylaxis: Pepcid Resuscitation Status: Do Not Resuscitate - Physician Narrative Narrative: Date: 01/02/18 Time: 1207 Hospital Course Summary Disclaimer: The visit summary below is not to be considered part of the above Progress Note. Hospital Course: 12/24/17 Admit, inpatient, under the hospitalist service. Continue Levaquin daily and add clindamycin for suspected aspiration. DuoNeb QID. O2 to maintain sats. Repeat lactate to ensure downward trend. Hold off on tube feeds until emesis is under control. Resume necessary home meds via IV rather than PEG - metoprolol, Pepcid, Depakote. (Metoprolol parameters: SBP >180, DBP >100 or HR >120) NS @ 100 mL/hr. Follow BC, sputum cx. AP & old records reviewed. Code status appears to have been changed to DNR since last admission. 12/25/17 Sepsis resolved today - WBC returned to normal, afebrile overnight. Sputum culture growing few GPC and GNR - continue Levaquin and clindamycin. Concern for aspiration on emesis - TF held at admission, restart slowly today and monitor closely. DuoNeb QID. O2 to maintain sats - currently needing 5 liters, wean down today. Repeat lactate to ensure downward trend. Continue metoprolol with hold parameters. NS @ 100 mL/hr. - continue for now. Code status appears to have been changed to DNR since last admission. 12/26/17 Sputum culture growing few GPC and GNR - continue Levaquin and clindamycin. Concern for aspiration on emesis - TF held at admission, re-attempted last night but stopped again due to high residuals. Got KUB that shows constipation - start bowel regimen. DuoNeb QID. O2 to maintain sats - weaned down to 3 liters oxygen today. Add prednisone for wheezing and possible aspiration pneumonitis. Also has h/o smoking in the past. Continue metoprolol with hold parameters. NS @ 100 mL/hr. - continue for now while tube feeds off. 12/27/17 Sputum culture growing heavy GPC and moderate GNR - continue Levaquin and clindamycin. New leukopenia noted. Tube feeds on hold d/t pt coughing up the feedings; however he is getting free water through his peg. Work on bowel decompression from below. Will give IV Reglan 5mg q 6 hours x3 doses. Wheezing today; stop IVF and give Lasix 20 mg IV x1. Will check a CXR today - lung bases on KUB yesterday show worsening. Cont Solu-Medrol. 12/28/17 Sputum culture grew out Streptococcus species and Klebsiella pneumoniae. Will continue with Levaquin and clindamycin, day #5. Continue Solu-Medrol 40 mg daily. K 3.3 - will replace IV. Check mg and phos in addition to BMP in am. Tube feeds still on hold: he normally gets Fibersource HN @ 125 mL/hr x 12 hours from 5p-5a: tonight will start at 30 ml/hr. Continue with free water. 150 mL Q4h per [facility] record 12/29/17 Tube feedings were tolerated well overnight. Will increase to 50 mL an hour, normal tube feeding is 125 ML/hr 12 hours from 5 pm-5am Continue with free water- 150 mL Q4h. Continue Levaquin and clindamycin, day #6. Working on weaning oxygen as able Continue with bladder scan Q6hr. 12/30/17 Will obtain KUB with upright X-ray given distension. Once that is evaluated will have nursing staff given Dulcolax suppository. KUB with nonspecific changes. Will try increasing TF to 75cc/hr. Continue with free water- 150 mL Q4h Remains on Levaquin and clindamycin, day #7. Working on weaning oxygen as able. 12/31/17 Increase tube feeding to 100 ML/HR (goal 125 ML/HR) x 12 hours from 5p-5. Continue with free water- 150 mL Q4h. Continues to require oxygen, weaned down to 1 liter. Use DuoNeb scheduled. Continue with bowel motivation. Abdomen is less firm today. Bowels moved yesterday. Sputum culture grew out Streptococcus species and Klebsiella pneumoniae. Remains on Levaquin and clindamycin, day #8. 01/01/18- Increase tube feeding to 125 ML/HR x 12 hours from 5p-5. (This is his home rate). Weaning down on oxygen 01/02/18 KUB - mod-large amount of stool in right colon; persistent LLL pneumonia. Start Dulcolax suppositories QID. De-escalating abx; today is day #10 of clinda and levaquin; klebsiella in sputum is sensitive to levaquin. DC Clinda. On room air this am. Stop IV steroids and start Prednisone 20 mg GT tomorrow am. Continue home feeding schedule, which is listed in his mar on his physical chart. (125 ml/hr from 5p-5a, free water 150 mL Q4h) K improved to 4.4 with KDur yesterday.
[2018-01-02] MEDS: BISACODYL 10 MG SUPPOSITORY RECTALLY SCH ×3 (13:35→23:24)
[2018-01-02] MEDS ORDERED: ACETAMINOPHEN 650 MG/20.3 ML SOLUTION PO PRN (13:41)
[2018-01-02] MEDS: LEVOFLOXACIN PB 750 MG/150 ML BAG IV SCH (13:57)
[2018-01-02] MEDS ORDERED: HYDROCODONE/APAP 5mg/325mg TABLET PO PRN (16:11)
[2018-01-02] MEDS: VALPROIC ACID 250 MG/5 ML GT SCH (23:10)
[2018-01-03] MEDS: ALBUTEROL/IPRATROPIUM 2.5mg-0.5mg/3ml NEB AEROSOL SCH ×4 (07:25→19:19)
[2018-01-03] MEDS: BUDESONIDE INH.SOLN 0.5mg/2ml NEB AEROSOL SCH ×2 (07:25→19:19)
--- NOTE | 2018-01-03 08:40 | XRay Report ---
Indication: hypoxia, recent pneumonia XR chest 1V: Comparison: 12/31/2017 Technique: Single portable upright AP chest Findings: Since the previous study slight increase in the interstitial prominence bilaterally with mild cardiac prominence similar to previous study. No significant effusions are noted although, costophrenic angle left side is still indistinct. Impression: Slight increase in the interstitial pulmonary markings since prior study with similar but mildly prominent heart size. .
[2018-01-03] MEDS: PredniSONE 20 MG TABLET GT SCH (08:51)
[2018-01-03] MEDS: ASPIRIN 325 MG TABLET GT SCH (08:51)
[2018-01-03] MEDS: ESCITALOPRAM 20 MG TABLET GT SCH (08:51)
[2018-01-03] MEDS: VALPROIC ACID 250 MG/5 ML GT SCH ×2 (08:51→21:10)
[2018-01-03] MEDS: FAMOTIDINE PB 20 MG/50 ML BAG IV SCH ×2 (08:52→21:11)
[2018-01-03] MEDS: SALINE FLUSH 10ml SYRINGE IVF PRN ×3 (08:52→21:13)
[2018-01-03] MEDS: BISACODYL 10 MG SUPPOSITORY RECTALLY SCH ×4 (08:52→22:25)
[2018-01-03] MEDS ORDERED: FUROSEMIDE 40 MG/4 ML INJECTION IVP ONE (09:59)
--- NOTE | 2018-01-03 10:00 | Progress Note ---
- Date 01/03/18 Subjective: Nilay was sleeping when I examined him but earlier this morning I heard him yelling "Ow". His nurse reports that he's been tolerating tube feeds at his routine rate. He has not had any n/v. He's had freq loose stools while getting the suppositories - not malodorous. He pulls off o2 tubing but is able to maintain room air sats of 89-90%. Objective Vital signs: Temperature 97.5 F 01/03/18 07:21 Pulse Rate 84 01/03/18 07:21 Respiratory Rate 16 01/03/18 07:25 Blood Pressure 125/67 01/03/18 07:21 Pulse Oximetry 92 01/03/18 07:25 Height/Weight/BMI: Height 1.7 m Weight 88.2 kg Body Mass Index 30.7 - Constitutional Present: no acute distress, well nourished, well developed - Routine HEENT Exam Head: Present: normocephalic ENT: Present: mucous membranes dry - Routine Respiratory Exam Present: decreased breath sounds, wheezes - Routine Cardiovascular Exam Present: RRR, S1, S2 - Routine Abdominal Exam Present: soft, normoactive bowel sounds, non distended, non tender - Routine Extremities Exam Present: no edema - Routine Skin Exam Present: intact, dry, warm - Routine Neurological Exam Absent: alert (sleeping), oriented X3 - Routine Psychiatric Exam Present: unable to assess Results - Labs CBC & Chem 7: 01/03/18 03:50 01/03/18 03:50 Microbiology Results: Microbiology 12/24/17 12:24 Peripheral/Iv Start Blood Culture - Final No Growth After 5 Days 12/24/17 12:26 Peripheral/Iv Start Blood Culture - Final No Growth After 5 Days 12/24/17 12:34 Sputum, Suctioned Gram Stain - Final 12/24/17 12:34 Sputum, Suctioned Sputum Culture - Final Strep agalactiae - (Group B) Klebsiella pneumoniae Normal Respiratory Rosanne Assessment and Plan Assessment and Plan: Assessment Severe sepsis - lactate 3.7; SIRS = leukocytosis, HR >90, fever Pneumonia vs aspiration pneumonia - klebsiella and GBS on sputum cx Hypoxia, room air sat 87% Reported emesis Hypokalemia, not present on admission HLD HTN 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 Saturating 89-90% on room air, pt pulls off oxygen when placed. Several loose stools however cont on dulcolax supp. for constipation/ileus. Abx dc'd yesterday. Cont tapering prednisone -- currently 20 mg. Poss dc soon. 01/03/2018-7:45 PM-I examined the patient independently. I reviewed this chart, the patient history, and the DIRECTOR OF CONTRACTS's/PA's documented findings as above. We discussed and formulated the assessment and plan as above with the additions below.-Dr. Justice The patient was seen this evening in his room. He was sleeping but awoke and stated that he feels okay and has no complaints. On exam he is drowsy but arousable. Chest is clear to auscultation. Cardiovascular reveals a regular rate and rhythm. Abdomen is soft and nontender. Extremities are free of edema. Impression and plan Mild hypoxia this morning with questionable mild pulmonary edema on chest x- ray. Patient was given Lasix IV 1. The patient finished a ten-day course of Levaquin and clindamycin for pneumonia. Patient is tolerating tube feedings. Probable transfer to the senior living soon. DVT Prophylaxis: SCD's GI Prophylaxis: Pepcid Resuscitation Status: Do Not Resuscitate - Physician Narrative Narrative: Date: 01/03/18 Time: 0957 Hospital Course Summary Disclaimer: The visit summary below is not to be considered part of the above Progress Note. Hospital Course: 12/24/17 Admit, inpatient, under the hospitalist service. Continue Levaquin daily and add clindamycin for suspected aspiration. DuoNeb QID. O2 to maintain sats. Repeat lactate to ensure downward trend. Hold off on tube feeds until emesis is under control. Resume necessary home meds via IV rather than PEG - metoprolol, Pepcid, Depakote. (Metoprolol parameters: SBP >180, DBP >100 or HR >120) NS @ 100 mL/hr. Follow BC, sputum cx. AP & old records reviewed. Code status appears to have been changed to DNR since last admission. 12/25/17 Sepsis resolved today - WBC returned to normal, afebrile overnight. Sputum culture growing few GPC and GNR - continue Levaquin and clindamycin. Concern for aspiration on emesis - TF held at admission, restart slowly today and monitor closely. DuoNeb QID. O2 to maintain sats - currently needing 5 liters, wean down today. Repeat lactate to ensure downward trend. Continue metoprolol with hold parameters. NS @ 100 mL/hr. - continue for now. Code status appears to have been changed to DNR since last admission. 12/26/17 Sputum culture growing few GPC and GNR - continue Levaquin and clindamycin. Concern for aspiration on emesis - TF held at admission, re-attempted last night but stopped again due to high residuals. Got KUB that shows constipation - start bowel regimen. DuoNeb QID. O2 to maintain sats - weaned down to 3 liters oxygen today. Add prednisone for wheezing and possible aspiration pneumonitis. Also has h/o smoking in the past. Continue metoprolol with hold parameters. NS @ 100 mL/hr. - continue for now while tube feeds off. 12/27/17 Sputum culture growing heavy GPC and moderate GNR - continue Levaquin and clindamycin. New leukopenia noted. Tube feeds on hold d/t pt coughing up the feedings; however he is getting free water through his peg. Work on bowel decompression from below. Will give IV Reglan 5mg q 6 hours x3 doses. Wheezing today; stop IVF and give Lasix 20 mg IV x1. Will check a CXR today - lung bases on KUB yesterday show worsening. Cont Solu-Medrol. 12/28/17 Sputum culture grew out Streptococcus species and Klebsiella pneumoniae. Will continue with Levaquin and clindamycin, day #5. Continue Solu-Medrol 40 mg daily. K 3.3 - will replace IV. Check mg and phos in addition to BMP in am. Tube feeds still on hold: he normally gets Fibersource HN @ 125 mL/hr x 12 hours from 5p-5a: tonight will start at 30 ml/hr. Continue with free water. 150 mL Q4h per [facility] record 12/29/17 Tube feedings were tolerated well overnight. Will increase to 50 mL an hour, normal tube feeding is 125 ML/hr 12 hours from 5 pm-5am Continue with free water- 150 mL Q4h. Continue Levaquin and clindamycin, day #6. Working on weaning oxygen as able Continue with bladder scan Q6hr. 12/30/17 Will obtain KUB with upright X-ray given distension. Once that is evaluated will have nursing staff given Dulcolax suppository. KUB with nonspecific changes. Will try increasing TF to 75cc/hr. Continue with free water- 150 mL Q4h Remains on Levaquin and clindamycin, day #7. Working on weaning oxygen as able. 12/31/17 Increase tube feeding to 100 ML/HR (goal 125 ML/HR) x 12 hours from 5p-5. Continue with free water- 150 mL Q4h. Continues to require oxygen, weaned down to 1 liter. Use DuoNeb scheduled. Continue with bowel motivation. Abdomen is less firm today. Bowels moved yesterday. Sputum culture grew out Streptococcus species and Klebsiella pneumoniae. Remains on Levaquin and clindamycin, day #8. 01/01/18- Increase tube feeding to 125 ML/HR x 12 hours from 5p-5. (This is his home rate). Weaning down on oxygen 01/02/18 KUB - mod-large amount of stool in right colon; persistent LLL pneumonia. Start Dulcolax suppositories QID. DC abx; today is day #10 of clinda and levaquin; klebsiella in sputum is sensitive to levaquin. On room air this am. Stop IV steroids and start Prednisone 20 mg GT tomorrow am. Continue home feeding schedule, which is listed in his mar on his physical chart. (125 ml/hr from 5p-5a, free water 150 mL Q4h) K improved to 4.4 with KDur yesterday. 01/03/18 Increased wheezing today; CXR showing increased markings -- Lasix 40 mg IV x1. Saturating 89-90% on room air, pt pulls off oxygen when placed. Several loose stools however cont on dulcolax supp. for constipation/ileus. Cont tapering prednisone -- currently 20 mg.
[2018-01-03] MEDS ORDERED: POTASSIUM CHLORIDE 20 MEQ/15 ML ORAL LIQUID GT ONE (10:32)
[2018-01-03] MEDS: LEVOFLOXACIN PB 750 MG/150 ML BAG IV SCH (12:08)
[2018-01-04 07:38] VITALS: BP 120/69; PULSE 75; TEMP 98.7
[2018-01-04] MEDS: ASPIRIN 325 MG TABLET GT SCH (08:09)
[2018-01-04] MEDS: NS FLUSH BAG 500ml IV PRN (08:09)
[2018-01-04] MEDS: SALINE FLUSH 10ml SYRINGE IVF PRN ×2 (08:09→11:14)
[2018-01-04] MEDS: ESCITALOPRAM 20 MG TABLET GT SCH (08:10)
[2018-01-04] MEDS: PredniSONE 20 MG TABLET GT SCH (08:10)
[2018-01-04] MEDS: VALPROIC ACID 250 MG/5 ML GT SCH (08:10)
[2018-01-04] MEDS: FAMOTIDINE PB 20 MG/50 ML BAG IV SCH (08:11)
[2018-01-04] MEDS: BUDESONIDE INH.SOLN 0.5mg/2ml NEB AEROSOL SCH (08:38)
[2018-01-04] MEDS: ALBUTEROL/IPRATROPIUM 2.5mg-0.5mg/3ml NEB AEROSOL SCH ×2 (08:38→10:56)
[2018-01-04 08:44] VITALS: O2SAT 92
[2018-01-04] MEDS: BISACODYL 10 MG SUPPOSITORY RECTALLY SCH ×2 (09:45→13:35)
[2018-01-04] MEDS ORDERED: POTASSIUM CHLORIDE 20 MEQ/15 ML ORAL LIQUID GT ONE (10:00)
[2018-01-04 10:58] VITALS: RESP 14
[2018-01-04] MEDS: LEVOFLOXACIN PB 750 MG/150 ML BAG IV SCH (11:14)
--- NOTE | 2018-01-04 11:18 | Extended Care Facility Orders ---
<Cori Garduno V - Last Filed: 01/04/18 11:16> Admission Orders Admit to:: [facility] Allergies/Adverse Reactions: Allergies No Known Allergies Allergy (Verified 12/24/17 11:55) Admitting Diagnosis: Sepsis, pnuemonia Admitting Physician: Munira Justice MD Attending Physician: Munira Justice MD Code Status: Do Not Resuscitate Anticiapted Length of Stay: greater than 30 days Rehab Potential: fair Rehab Prognosis: fair Diet: NPO Modifiers: Nothing by Mouth Tube feeds only May use Facility Protocol or Standing Orders: Yes May have flu vaccine: Yes - Additional Information In Event of Arrest: Do Not Start CPR Referrals: Donovan Curtis MD [Primary Care Provider] - (Please schedule follow up apt for 1 week ) Additional Orders: Normal Tube feeds at 125ml/hr for 12 hours at night 5p-5a. 150ML free water every 4 hours. May use oxygen as needed to keep sats >92% <Munira Justice - Last Filed: 01/04/18 13:33> Admission Orders Admitting Diagnosis: Sepsis, pnuemonia Admitting Physician: Munira Justice MD Attending Physician: Munira Justice MD Code Status: Do Not Resuscitate Diet: 12/24/17 15:02 NPO Diet [DIET] NPO Modifiers: Nothing by Mouth Senior [facility] Certification: I certify that SNF services are required to be given on an Inpatient basis because of the patients need for intermediate care on a continuing basis for the condition(s) for which he/she received inpatient hospital services prior to his/her transfer to the SNF. SNF inpatient care is necessary for the following reasons
--- NOTE | 2018-01-04 13:36 | Discharge Summary ---
Discharge Information Date of admission: 12/24/17 13:02 Anticipated date of discharge: 01/04/18 Attending Physician: Munira Justice MD Primary care physician: Donovan Curtis MD Consults: None Severe sepsis - lactate 3.7; SIRS = leukocytosis, HR >90, fever Pneumonia vs aspiration pneumonia - klebsiella and GBS on sputum cx Hypoxia, room air sat 87% Reported emesis Hypokalemia, not present on admission HLD HTN Vascular dementia CVA with residual L sided weakness, Dysphagia, Aphasia OA GERD - Procedures Procedures: None - Laboratory Labs: 01/04/18 04:07 01/04/18 04:07 - Microbiology Microbiology 12/24/17 12:24 Peripheral/Iv Start Blood Culture - Final No Growth After 5 Days 12/24/17 12:26 Peripheral/Iv Start Blood Culture - Final No Growth After 5 Days 12/24/17 12:34 Sputum, Suctioned Gram Stain - Final 12/24/17 12:34 Sputum, Suctioned Sputum Culture - Final Strep agalactiae - (Group B) Klebsiella pneumoniae Normal Respiratory Rosanne - Radiology Radiology: 12/24/17-chest x-ray-left lower lobe atelectasis, pneumonia or aspiration 12/25/17-chest x-ray -Worsening left lower lobe pneumonia or aspiration with superimposed edema. 12/26/ KUB Xray- Worsening appearance of the lungs. Nonobstructive bowel gas pattern. 12/27/17- Chest Xray- Slight interval improvement in the left lung base infiltrate /atelectasis. A small left pleural effusion is suspected. There is no other significant interval change 12/30/17- KUB X-ray- Nonobstructive nonspecific bowel gas pattern. 12/31/17-chest [id number]-[id number] in appearance of chest 01/02/18-KUB with upright a-gff-qsqdkxklxpeikz bowel gas pattern with mild ileus. 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 He is unable to effectively communicate, though was able to deny pain, nausea, or SOA (says "no "). Per report, he was found with emesis around his mouth at [facility], and had a fever of 101.3. BP was low at 95/62. Sats were 90% and he was placed on 4L. He was transferred to [facility] for evaluation. He was 87% on room air, and was placed on 5L O2. T 100.2. He was not hypotensive and HR peaked at 112. CXR showed RLL infiltrate. Lactate was elevated at 3.7; WBC was 12.7. He was bolused 1L NS. He received levaquin 750 mg IV for pneumonia. Per report, the nurses suctioned 200-300 mL of secretions in the ED. He was also given a DuoNeb treatment. Dr. Scott was notified and the patient was admitted to inpatient status for severe sepsis secondary to pneumonia/aspiration. LOS is expected to exceed 2 overnights. Objective Vital signs: Temperature 98.7 F 01/04/18 07:34 Pulse Rate 75 01/04/18 07:34 Respiratory Rate 14 01/04/18 10:56 Blood Pressure 120/69 01/04/18 07:34 Pulse Oximetry 92 01/04/18 11:14 Height/Weight/BMI: Height 1.7 m Weight 85.5 kg Body Mass Index 30.7 - Constitutional Present: no acute distress, well nourished, well developed - Routine HEENT Exam Eye: Present: EOMI ENT: Present: mucous membranes moist, dentition normal - Routine Respiratory Exam Present: CTA bilaterally. Absent: wheezes - Routine Cardiovascular Exam Present: RRR, S1, S2. Absent: murmur - Routine Abdominal Exam Present: soft, normoactive bowel sounds, non distended. Absent: tenderness - Routine Extremities Exam Present: no edema - Routine Skin Exam Present: intact, dry, warm - Routine Neurological Exam Present: alert, CN II-XII intact - Routine Lymphatic Exam Lymphatic: Absent: adenopathy - Routine Psychiatric Exam Present: cooperative Hospital Course This is a general summary of the patient's hospital course. For more details refer to the complete medical record. Hospital course: 12/24/17 Admit, inpatient, under the hospitalist service. Continue Levaquin daily and add clindamycin for suspected aspiration. DuoNeb QID. O2 to maintain sats. Repeat lactate to ensure downward trend. Hold off on tube feeds until emesis is under control. Resume necessary home meds via IV rather than PEG - metoprolol, Pepcid, Depakote. (Metoprolol parameters: SBP >180, DBP >100 or HR >120) NS @ 100 mL/hr. Follow BC, sputum cx. AP & old records reviewed. Code status appears to have been changed to DNR since last admission. 12/25/17 Sepsis resolved today - WBC returned to normal, afebrile overnight. Sputum culture growing few GPC and GNR - continue Levaquin and clindamycin. Concern for aspiration on emesis - TF held at admission, restart slowly today and monitor closely. DuoNeb QID. O2 to maintain sats - currently needing 5 liters, wean down today. Repeat lactate to ensure downward trend. Continue metoprolol with hold parameters. NS @ 100 mL/hr. - continue for now. Code status appears to have been changed to DNR since last admission. 12/26/17 Sputum culture growing few GPC and GNR - continue Levaquin and clindamycin. Concern for aspiration on emesis - TF held at admission, re-attempted last night but stopped again due to high residuals. Got KUB that shows constipation - start bowel regimen. DuoNeb QID. O2 to maintain sats - weaned down to 3 liters oxygen today. Add prednisone for wheezing and possible aspiration pneumonitis. Also has h/o smoking in the past. Continue metoprolol with hold parameters. NS @ 100 mL/hr. - continue for now while tube feeds off. 12/27/17 Sputum culture growing heavy GPC and moderate GNR - continue Levaquin and clindamycin. New leukopenia noted. Tube feeds on hold d/t pt coughing up the feedings; however he is getting free water through his peg. Work on bowel decompression from below. Will give IV Reglan 5mg q 6 hours x3 doses. Wheezing today; stop IVF and give Lasix 20 mg IV x1. Will check a CXR today - lung bases on KUB yesterday show worsening. Cont Solu-Medrol. 12/28/17 Sputum culture grew out Streptococcus species and Klebsiella pneumoniae. Will continue with Levaquin and clindamycin, day #5. Continue Solu-Medrol 40 mg daily. K 3.3 - will replace IV. Check mg and phos in addition to BMP in am. Tube feeds still on hold: he normally gets Fibersource HN @ 125 mL/hr x 12 hours from 5p-5a: tonight will start at 30 ml/hr. Continue with free water. 150 mL Q4h per [facility] record 12/29/17 Tube feedings were tolerated well overnight. Will increase to 50 mL an hour, normal tube feeding is 125 ML/hr 12 hours from 5 pm-5am Continue with free water- 150 mL Q4h. Continue Levaquin and clindamycin, day #6. Working on weaning oxygen as able Continue with bladder scan Q6hr. 12/30/17 Will obtain KUB with upright X-ray given distension. Once that is evaluated will have nursing staff given Dulcolax suppository. KUB with nonspecific changes. Will try increasing TF to 75cc/hr. Continue with free water- 150 mL Q4h Remains on Levaquin and clindamycin, day #7. Working on weaning oxygen as able. 12/31/17 Increase tube feeding to 100 ML/HR (goal 125 ML/HR) x 12 hours from 5p-5. Continue with free water- 150 mL Q4h. Continues to require oxygen, weaned down to 1 liter. Use DuoNeb scheduled. Continue with bowel motivation. Abdomen is less firm today. Bowels moved yesterday. Sputum culture grew out Streptococcus species and Klebsiella pneumoniae. Remains on Levaquin and clindamycin, day #8. 01/01/18- Increase tube feeding to 125 ML/HR x 12 hours from 5p-5. (This is his home rate). Weaning down on oxygen 01/02/18 KUB - mod-large amount of stool in right colon; persistent LLL pneumonia. Start Dulcolax suppositories QID. DC abx; today is day #10 of clinda and levaquin; klebsiella in sputum is sensitive to Levaquin. On room air this am. Stop IV steroids and start Prednisone 20 mg GT tomorrow am. Continue home feeding schedule, which is listed in his mar on his physical chart. (125 ml/hr from 5p-5a, free water 150 mL Q4h) K improved to 4.4 with KDur yesterday. 01/03/18 Increased wheezing today; CXR showing increased markings -- Lasix 40 mg IV x1. Saturating 89-90% on room air, pt pulls off oxygen when placed. Several loose stools however cont on dulcolax supp. for constipation/ileus. Cont tapering prednisone -- currently 20 mg. 01/04/18- Discharge Nilay is seen and examined today prior to discharge. He is resting comfortably today on room air and saturations remain 92%. He continues to be tolerating tube feedings at his home baseline rate of 125ml/hr for 12 hrs continuous at night as well as 150ML of free water every 4 hours. He has completed his antibiotic course. He will continue on 3 additional days of prednisone 10 milligrams daily to complete taper. Otherwise, he will continue on routine home medications. He is instructed to follow-up with his primary care provider Dr. Curtis in 1 week. Time spent with patient: greater than 35 minutes Resuscitation Status: Do Not Resuscitate Discharge Plan - Discharge Disposition Discharge Date: 01/04/18 Disposition: 04 To [facility] Home/Facility *Condition: Stable Reason For Visit (Visit label in EMR): Sepsis, pnuemonia - Discharge Medications *Discharge Medications: New Hydrocodone/APAP 5/325 [[place] 5/325] 1 tab PO Q4H PRN #20 tab PRN Reason: Pain predniSONE [Prednisone] 10 mg GT DAILY 3 Days #3 tab Continue Escitalopram [Lexapro] 20 mg GT DAILY Simvastatin [Zocor] 10 mg GT HS Albuterol Neb (0.083%) [Proventil Neb (0.083%)] 1 vial INH Q4H PRN PRN Reason: Wheezing Acetaminophen 15 ml GT Q4H PRN PRN Reason: Pain Sennosides [Senokot] 8.6 mg GT DAILY Divalproex [Depakote] 125 mg GT BID Gabapentin [Neurontin] 200 mg GT BID Artificial Tears [Tears Naturale] 1 drops EACH EYE PRN PRN bottle PRN Reason: Dry Eyes Bisacodyl Supp [Dulcolax] 10 mg RECTALLY DAILY PRN suppositor PRN Reason: Constipation Sucralfate Oral Liq [Carafate Slurry] 1 gm GT Q6H #400 ml Loperamide [Imodium] 2 mg PO QID PRN PRN Reason: Loose Stools Mag Hydrox/Aluminum Hyd/Simeth [Alum-Mag Hydroxide-Simeth Liq] 30 ml PO Q4H PRN PRN Reason: Indigestion Oxycodone/Acetaminophen 5/325 [Percocet 5/325] 1 tab GT Q6H PRN #20 tab PRN Reason: Pain FentaNYL PATCH [Duragesic Patch] 1 patch TD Q72H #10 patch Metoprolol Tartrate [Lopressor] 12.5 mg GT BID Mupirocin Ointment [Bactroban Ointmment] 1 applicatio TOP BID Aspirin [ASA] 325 mg GT DAILY tab Famotidine [Pepcid AC] 20 mg PO BID - Discharge Packet/Instructions *Diet: NPO- Tube feedings only *Activity: Activity as tolerated *Pain Management/Treatment: Percocet as needed for pain *Wound Care: Routine dressing changes around feeding tube Additional Instructions: Fibersource at 125 ml/hr for 12 hours plus 150 ml of free water every 4 hours. May use Oxygen as needed to keep sats >92% *Expected Signs/Symptoms: Continued improvement *Notify Physician if: Fever, difficulty breathing, vomiting abdominal pain or other concerning symptoms *During Business Hours Contact: Dr Curtis office *After Business Hours Contact: Page oncall Provider or present to the ER *Pending Lab/Results: No Pending Lab - Referrals/Follow Up *Referrals/Follow Up: Donovan Curtis MD [Primary Care Provider] - (Please schedule follow up apt for 1 week ) - Patient Handouts Patient Handouts: Sepsis (GEN), Pneumonia (GEN) - Dismissal Complete Discharge Instructions are:: Complete Physician Narrative - Narrative Physician: Munira Justice MD Attestation Narrative: Date: 01/04/18 Time: 14:00-I examined the patient independently. I reviewed this chart, the patient history, and the PHOTOGRAPHIC [employer]ELOPER [employer]INTER's/PA's documented findings as above. We discussed and formulated the assessment and plan as above with the additions below.-Dr. Justice Patient was seen earlier this afternoon in his room. Initially, when I asked how he was doing he said "not good". He said he had abdominal pain but could not localize where his abdomen. He later stated the pain was minimal and did not want pain medication. He is tolerating his tube feedings. He has finished a ten-day course of antibiotics for aspiration pneumonia. He is currently oxygenating well on room air. On exam he is alert and in no acute distress. Chest is clear to auscultation. Cardiovascular reveals a regular rate and rhythm. Abdomen is soft, nontender with normal bowel sounds. No rebound or guarding. G-tube is in position without any surrounding drainage. Extremities are free of edema Lab today reveals white count 10.8, hemoglobin 13, platelets 216. BUN is 31 and creatinine 1.1, these are at slightly since yesterday after receiving a dose of Lasix for mild pulmonary congestion seen on chest x-ray. Impression and plan Acute hypoxic respiratory failure is resolved. The patient is finished a course of antibiotics for aspiration pneumonia. Patient has been tolerating his usual tube feeding for the past several nights. The patient appears stable for transfer back to his longterm. Will discuss hospital findings and discharge plans with Dr. Curtis
== END 2018-01-04 15:10 | DRG 871 ==
LOC: ED 11:49 → SUATTDRO 13:02 → EDHOLD 13:02 → MED 13:50
PROVIDERS: ADMIT Hospitalist; ATTEND Internal Medicine